=== PATIENT | female | born 1975 | race Caucasian/White ===

== ENCOUNTER 2018-06-17 16:00 | Emergency (ER) | payer BC ==
--- OUTSIDE RECORDS SUMMARY | 2018-06-17 16:02 | XMS REPORT | Clinical Summary ---
:1975 Author Organization [facility] Address [address] [place] [address] Care Team Providers Name Role Phone Asked, No Pcp Primary Care Provider Unavailable Allergies Active Allergy Reactions Severity Noted Date Comments Codeine Penicillins Current Medications Prescription Sig. Disp. Refills Start Date End Date Status promethazine Take 1 tablet 40 tablet 0 05/20/2017 06/19/2017 Discontinued (PHENERGAN) 25 MG (25 mg total) tabletIndications: by mouth every Lumbar 6 (six) hours radiculopathy, as needed for chronic, Chronic nausea or right-sided low vomiting for back pain with up to 40 days. right-sided sciatica HYDROcodone-acetami Take 1 tablet 40 tablet 0 06/17/2017 06/27/2017 nophen (NORCO) by mouth every 5-325 mg per 4 (four) hours tabletIndications: as needed for DDD (degenerative moderate pain disc disease), for up to 10 lumbar, Lumbar days. Max radiculopathy, Daily Amount: chronic 6 tablets meloxicam (MOBIC) Take 1 tablet 30 tablet 1 06/17/2017 08/16/2017 15 mg tablet (15 mg total) by mouth daily for 60 days. promethazine Take 1 tablet 40 tablet 0 06/20/2017 07/30/2017 (PHENERGAN) 25 MG (25 mg total) tabletIndications: by mouth every Lumbar 6 (six) hours radiculopathy, as needed for chronic, Chronic nausea or right-sided low vomiting for back pain with up to 40 days. right-sided sciatica Active Problems Problem Noted Date DDD (degenerative disc disease), lumbar 06/17/2017 Lumbar radiculopathy, chronic 05/20/2017 Chronic right-sided low back pain with right-sided sciatica 05/20/2017 Encounters Date Type Specialty Care Team Description 06/19/2017 Refill Orthopedic Surgery Anam Costa MD Lumbar radiculopathy , chronic; Chronic right-sided low back pain with right-sided sciatica 06/17/2017 Office Visit Orthopedic Surgery Anam Costa MD DDD ( degenerative disc disease), lumbar (Primary Dx); Lumbar radiculopathy, chronic; Chronic right-sided low back pain with right-sided sciatica after 06/16/2017 Family History Medical History Relation Name Comments No Known Problems Father Osteoporosis Mother Relation Name Status Comments Father Alive Mother Alive Social History Tobacco Use Types Packs/Day Years Used Date Never Smoker Smokeless Tobacco: Never Used Sex Assigned at Date Recorded Not on file Last Filed Vital Signs Not on file Plan of Treatment Health Maintenance Due Date Last Done Comments CERVICAL CANCER SCREENING 1995 INFLUENZA VACCINE 06/14/2018 Procedures Procedure Name Priority Date/Time Associated Diagnosis Comments XR LUMBAR SPINE 2 Routine 06/17/2017 9:49 AM Chronic right-sided Results for this OR 3 VW CDT low back pain with procedure are in right-sided sciatica the results Lumbar section. radiculopathy, chronic after 06/16/2017 Results XR Lumbar Spine 2 Or 3 Vw (06/17/2017 9:49 AM) Narrative Performed At Flexion and extension views are negative for instability. Mild narrowing [facility] of the lumbosacral junction. Performing Organization Address City/State/Zipcode Phone Number [facility] [address] [place] [address] after 06/16/2017 Insurance Payer Benefit Plan / Group Subscriber ID Type Phone Address BCBS BCBS OUT OF STATE xxxxxxxxxxxxxxx PPO [phone] [id number]
--- OUTSIDE RECORDS SUMMARY | 2018-06-17 16:02 | XMS REPORT | Continuity of Care Document ---
:1975 Author Organization Interface Problems Problem Status Onset Classification Date Comments Source Date Reported MIGRAINE Active Condition 05/15/2015 Medical HEADACHE 5 Group ROUTINE GENERAL Active Condition 05/15/2015 Medical MEDICAL 4 Group [email or web address] HEADACHE Inactive Condition 05/15/2015 Medical 4 Group ANXIETY STATE, Active Condition 05/15/2015 Medical UNSPECIFIED Group Medications Medication Details Route Status Patient Ordering Order Source Instructions Provider Date CLIMARA 0.05 one patch Active MH MG/24HR PTWK weekly. 015 Medical Group AMITRIPTYLINE one hs Active HCL 10 MG TABS 015 Medical Group ASCOMP-CODEINE one bid Active [id number] MG prn 014 Medical CAPS headaches. Group XANAX 0.25 MG 1 tablet Active MH TABS daily at 013 Medical bedtime as Group needed Allergies, Adverse Reactions, Alerts Substance Category Reaction Severity Reaction Status Date Comments Source type Reported PCN Drug PCN allergy Medical Group CODEINE Drug CODEINE allergy Medical Group Immunizations Immunization Date Given Site Status Last Updated Comments Source Results Order Name Results Value Reference Date Interpretation Comments Source Range Chemistry CHOLESTEROL 185 - 199 05/15/ MH mg/dl 2014 Medical Group Chemistry TRIGLYCERIDE 92 - 149 05/15/ mg/dl 2014 Medical Group Chemistry HDL 61 >=61 05/15/ mg/dl 2014 Medical Group Chemistry LDL 106 - 99 05/15/ MH mg/dl 2014 Medical Group Chemistry SODIUM 140 135 - 145 05/15/ MEQ/L 2014 Medical mmol/L Group Chemistry POTASSIUM 4.7 3.5 - 5.1 MEQ/L 2014 Medical mmol/L Group Chemistry CREATININE 0.7 0.5 - 1.4 05/15/ MH mg/dL 2014 Medical Group Chemistry BUN 14 7 - 22 05/15/ MH mg/dL 2014 Medical Group Chemistry BUN/CREAT 20 6 - 25 2014 Medical Group Chemistry ALBUMIN 4.2 3.5 - 5.0 g/dL 2014 Medical Group Chemistry CALCIUM 9.5 8.5 - 10.5 mg/dL 2014 Medical Group Chemistry SGPT (ALT) 23 U/L 0 - 65 2014 Medical Group Chemistry SGOT (AST) 15 U/L 0 - 37 2014 Medical Group Chemistry ALK PHOS 58 U/L 39 - 136 2014 Medical Group Chemistry TSH 2.040 0.360 - uIU/mL 3.740 2014 Medical Group Hematology HGB 12.8 12.0 - 16.0 g/dL 2014 Medical Group Hematology HCT 39.3 % 36.0 - 48.0 2014 Medical Group Hematology PLATELETS 291 133 - 450 K/CMM 2014 Medical /mm3 Group Chemistry CHOLESTEROL 235 - 199 mg/dl 2013 Medical Group Chemistry TRIGLYCERIDE 146 - 149 mg/dl 2013 Medical Group Chemistry HDL 64 >=61 mg/dl 2013 Medical Group Chemistry LDL 142 - 99 mg/dl 2013 Medical Group Chemistry SODIUM 139 135 - 145 MEQ/L 2013 Medical mmol/L Group Chemistry POTASSIUM 3.8 3.5 - 5.1 MEQ/L 2013 Medical mmol/L Group Chemistry CREATININE 0.7 0.5 - 1.4 mg/dL 2013 Medical Group Chemistry BUN 14 7 - 22 mg/dL 2013 Medical Group Chemistry BUN/CREAT 20 6 - 25 2013 Medical Group Chemistry ALBUMIN 4.4 3.5 - 5.0 g/dL 2013 Medical Group Chemistry CALCIUM 9.8 8.5 - 10.5 mg/dL 2013 Medical Group Chemistry SGPT (ALT) 26 U/L 0 - 65 2013 Medical Group Chemistry SGOT (AST) 17 U/L 0 - 37 2013 Medical Group Chemistry ALK PHOS 67 U/L 39 - 136 2013 Medical Group Chemistry TSH 2.440 0.360 - uIU/mL 3.740 2013 Medical Group Hematology HGB 13.0 12.0 - 16.0 g/dL 2013 Medical Group Hematology HCT 39.7 % 36.0 - 48.0 2013 Medical Group Hematology PLATELETS 233 133 - 450 K/CMM 2014 Medical /mm3 Group Vital Signs Vital Sign Value Date Comments Source Weight 148 05/15/2015 Medical Group Temperature Oral (F) 98.1 F 05/15/2015 Medical [facility] Heart Rate 70 05/15/2015 Medical Group Systolic (mm Hg) 111 05/15/2015 Medical Group Diastolic (mm Hg) 74 05/15/2015 Medical Group Height 63.5 11/23/2013 Medical Group Weight 145 11/23/2013 Medical [facility] Heart Rate 58 11/23/2013 Medical [facility] Temperature Oral (F) 97.4 F 11/23/2013 Medical Group Systolic (mm Hg) 160 11/23/2013 Medical Group Diastolic (mm Hg) 78 11/23/2013 Medical [facility] Encounters Location Location Encounter Encounter Reason Attending ADM DC Status Source Details Type Number For Provider Date Date Visit [facility] Office [id number] [facility] 05/15 05/15 [facility] Visit 0 Medical Medical MD Group Group [facility] Lab Report [id number] Bear 05/15 05/15 Jigar 0 Medical Medical MD Group Group [facility] [place] Procedures Procedure Code Date Perfomer Comments Source colonoscopy 11065 03/05/2008 Done Medical [facility] colonoscopy 35945 03/05/2008 Complete Medical [facility]
--- OUTSIDE RECORDS SUMMARY | 2018-06-17 16:03 | XMS REPORT | Continuity of Care Document ---
:1975 Author Organization [facility] Care Team Providers Name Role Phone MD Stefany, Bear Unavailable Unavailable Insurance Providers Payer name Policy type / Coverage Policy ID Covered constitution party ID Policy [place] type AETNA - NAP - CHOICE (POS II) AETNA - NAP - CHOICE (POS II) Encounters Encounter Performer Location Date Office Visit Bear Mccall MD [facility] May 15, 2015 Allergies, Adverse Reactions, Alerts Type Substance Reaction Status Drug allergy PCN Active Drug allergy CODEINE Active Problems Problem Effective Dates Problem Status ANXIETY STATE, UNSPECIFIED Active ROUTINE GENERAL MEDICAL [email or web address] [email or web address] Nov 23, 2013 Active HEADACHE Nov 23, 2013 Inactive MIGRAINE HEADACHE May 15, 2015 Active Procedures Date Description Comments Mar 05, 2008 colonoscopy Done Mar 05, 2008 colonoscopy Complete Nov 23, 2013 smoking status never smoker May 15, 2015 smoking status Never smoker Medications Medication Instructions Start Date Status XANAX 0.25 MG TABS 1 tablet daily at bedtime as April 11, 2013 Active needed ASCOMP-CODEINE 34-852-89-30 MG one bid prn headaches. Nov 23, 2013 Active CAPS CLIMARA 0.05 MG/24HR PTWK one patch weekly. May 15, 2015 Active AMITRIPTYLINE HCL 10 MG TABS one hs May 15, 2015 Active Vital Signs Date Description Test Result Nov 23, 2013 height E&M - 8302-2 HEIGHT 63.5 in Nov 23, 2013 weight E&M - 3141-9 WEIGHT 145 lb Nov 23, 2013 pulse rate E&M - 8867-4 PULSE RATE 58 /min Nov 23, 2013 temperature E&M TEMPERATURE 97.4 deg f Nov 23, 2013 blood pressure, systolic - 8480-6 BP SYSTOLIC 160 mm Hg Nov 23, 2013 blood pressure, diastolic - 8462-4 BP DIASTOLIC 78 mm Hg May 15, 2015 weight E&M - 3141-9 WEIGHT 148 lb May 15, 2015 temperature E&M TEMPERATURE 98.1 deg f May 15, 2015 pulse rate E&M - 8867-4 PULSE RATE 70 /min May 15, 2015 blood pressure, systolic - 8480-6 BP SYSTOLIC 111 mm Hg May 15, 2015 blood pressure, diastolic - 8462-4 BP DIASTOLIC 74 mm Hg Results Date Description Test Name Value Reference Interpretation Status Nov 23, hemoglobin, blood HGB 13.0 g/dL 12.0-16.0 2013Nov 23, hematocrit, blood HCT 39.7 % 36.0-48.0 2013Nov 23, platelet count PLATELETS 233 K/CMM [phone] /mm3 May 15, hemoglobin, blood HGB 12.8 g/dL 12.0-16.0 2014May 15, hematocrit, blood HCT 39.3 % 36.0-48.0 2014May 15, platelet count PLATELETS 291 K/CMM [phone] /mm3 Nov 23, cholesterol, serum CHOLESTEROL 235 mg/dl <=199 High 2013Nov 23, triglyceride, serum, TRIGLYCERIDE 146 mg/dl <=149 2013Nov 23, HDL cholesterol, HDL 64 mg/dl >=61 2013Nov 23, LDL cholesterol, LDL 142 mg/dl <=99 High 2013Nov 23, sodium, serum SODIUM 139 MEQ/L [phone] mmol/L Nov 23, potassium, serum POTASSIUM 3.8 MEQ/L 3.5-5.1 2013 mmol/L Nov 23, creatinine, serum CREATININE 0.7 mg/dL 0.5-1.4 2013Nov 23, urea nitrogen, blood BUN 14 mg/dL 7-22 2013Nov 23, urea BUN/CREAT 20 null 6-25 2013 nitrogen/creatinine ratio, serum Nov 23, albumin, serum ALBUMIN 4.4 g/dL 3.5-5.0 2013Nov 23, calcium, serum CALCIUM 9.8 mg/dL 8.5-10.5 2013Nov 23, alanine SGPT (ALT) 26 U/L 0-65 2014 aminotransferase (SGPT), serum Nov 23, aspartate SGOT (AST) 17 U/L 0-37 2013 aminotransferase (SGOT), serum Nov 23, alkaline ALK PHOS 67 U/L 39-136 2013 phosphatase, serum Nov 23, thyroid stimulating TSH 2.440 0.360-3.740 2013 hormone, serum uIU/mL May 15, cholesterol, serum CHOLESTEROL 185 mg/dl <=199 2014May 15, triglyceride, serum, TRIGLYCERIDE 92 mg/dl <=149 2014May 15, HDL cholesterol, HDL 61 mg/dl >=61 2014May 15, LDL cholesterol, LDL 106 mg/dl <=99 High 2014May 15, sodium, serum SODIUM 140 MEQ/L [phone] mmol/L May 15, potassium, serum POTASSIUM 4.7 MEQ/L 3.5-5.1 2014 mmol/L May 15, creatinine, serum CREATININE 0.7 mg/dL 0.5-1.4 2014May 15, urea nitrogen, blood BUN 14 mg/dL 7-22 2014May 15, urea BUN/CREAT 20 null 6-25 2014 nitrogen/creatinine ratio, serum May 15, albumin, serum ALBUMIN 4.2 g/dL 3.5-5.0 2014May 15, calcium, serum CALCIUM 9.5 mg/dL 8.5-10.5 2014May 15, alanine SGPT (ALT) 23 U/L 0-65 2014 aminotransferase (SGPT), serum May 15, aspartate SGOT (AST) 15 U/L 0-37 2014 aminotransferase (SGOT), serum May 15, alkaline ALK PHOS 58 U/L 39-136 2014 phosphatase, serum May 15, thyroid stimulating TSH 2.040 0.360-3.740 2015 hormone, serum uIU/mL
--- OUTSIDE RECORDS SUMMARY | 2018-06-17 16:03 | XMS REPORT | Continuity of Care Document ---
:1975 Author Organization [facility] Care Team Providers Name Role Phone MD Stefany, Bear Unavailable Unavailable Insurance Providers Payer name Policy type / Coverage Policy ID Covered republican ID Policy [place] type AETNA - NAP - CHOICE (POS II) AETNA - NAP - CHOICE (POS II) Encounters Encounter Performer Location Date Lab Report Bear Mccall MD [facility] May 15, 2015 Allergies, Adverse Reactions, Alerts [...] as April 11, 2013 Active needed ASCOMP-CODEINE [id number] MG one bid prn headaches. Nov 23, [...] 2013Nov 23, platelet count PLATELETS 233 K/CMM [phone] /mm3 May 15, hemoglobin, blood HGB 12.8 g/dL 12.0-16.0 2014May 15, hematocrit, blood HCT 39.3 % 36.0-48.0 2014May 15, platelet count PLATELETS 291 K/CMM [phone] /mm3 Nov 23, cholesterol, serum CHOLESTEROL 235 mg/dl <=199 High 2013Nov 23, triglyceride, serum, TRIGLYCERIDE 146 mg/dl <=149 2013Nov 23, HDL cholesterol, HDL 64 mg/dl >=61 2013Nov 23, LDL cholesterol, LDL 142 mg/dl <=99 High 2013Nov 23, sodium, serum SODIUM 139 MEQ/L [phone] mmol/L Nov 23, potassium, serum POTASSIUM 3.8 [...] 2014May 15, sodium, serum SODIUM 140 MEQ/L [phone] mmol/L May 15, potassium, serum POTASSIUM 4.7 [...]
[2018-06-17] MEDS ORDERED: ONDANSETRON 4 MG/2 ML VIAL ONE (16:44)
[2018-06-17] MEDS ORDERED: KETOROLAC 30 MG/ML INJ ONE (16:44)
[2018-06-17] MEDS ORDERED: NA CHLORIDE 0.9% 1,000 ML ONE (16:44)
[2018-06-17 17:08] LABS: Absolute Lymphocytes (CBC) 0.8 K/uL (0.7-4.9); Absolute Monocytes 0.2 K/uL (0.1-1.3); Absolute Neutrophil 3.7 K/uL (1.8-8.0); Basophils % 0.2 % (0-1.3); Eosinophils % 0.3 % (0-4.4); Hematocrit 37.1 % (36.0-45.0); Lymphocytes % 17.3 % (15.3-44.8); MCH 29.1 pg (27.0-35.0); MPV 9.7 fL (7.6-11.3); Monocytes % 5.1 % (3.3-12.3); RBC Red Blood Cell Count 4.32 M/uL (3.86-4.86)
--- NOTE | 2018-06-17 17:12 | RAD REPORT ---
EXAM DESCRIPTION: CT - [id number] - 06/17/2018 5:00 pm CLINICAL HISTORY: Trauma, head and neck injury. PAIN COMPARISON: MRI BRAIN WITHOUT CONTRAST dated 12/07/2013 TECHNIQUE: Axial 5 mm thick images of the head were obtained. Axial 2 mm thick images of the cervical spine were obtained with sagittal and coronal reconstruction images generated and reviewed. All CT scans are performed using dose optimization technique as appropriate and may include automated exposure control or mA/KV adjustment according to patient size. FINDINGS: CT HEAD WITHOUT CONTRAST: No acute hemorrhage, hydrocephalus or extra-axial collection is identified.No areas of brain edema or midline shift. The paranasal sinuses and mastoids are clear.The calvarium is intact. CT CERVICAL SPINE WITHOUT CONTRAST: No fracture or subluxation.3 mm anterolisthesis is noted of C4 on 5.No prevertebral soft tissues swel ling is identified. IMPRESSION: No acute intracranial abnormality seen. 3 mm anterolisthesis of C4 on 5 is noted. No fracture is visualized. The findings may be related liga mentous injury, age undetermined. Followup MR imaging of the cervical spine may be useful for further assessment.
[2018-06-17 17:29] LABS: Albumin 3.7 g/dL (3.4-5.0); Bilirubin Total 0.4 mg/dL (0.2-1.0); Potassium 3.9 mmol/L (3.5-5.1); Protein, Total 7.3 g/dL (6.4-8.2)
[2018-06-17] MEDS ORDERED: PROMETHAZINE 25 MG/ML VIAL ONE (17:33)
--- NOTE | 2018-06-17 17:38 | EDPHYS ---
Physician Documentation [facility] Name: Jose Armenta Age: 42 yrs Sex: Female : 1975 Arrival Date: 06/17/2018 Time: 16:03 Bed 16 Private MD: Citlali Myles C ED Physician Jeremiah Marsh HPI: 06/17 16:37 This 42 yrs old Female presents to ER via Ambulatory with complaints of Fall cesar Injury, Vomiting. 16:37 Details of fall: The patient fell from an upright position, while walking. Onset: The cesar symptoms/episode began/occurred last night. Associated injuries: The patient sustained injury to the head. Severity of symptoms: At their worst the symptoms were mild, moderate, in the emergency department the symptoms are unchanged. The patient has not experienced similar symptoms in the past. 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 - Social history:: Smoking status: Patient/guardian denies using tobacco. - Ebola Screening: : Patient denies travel to an Ebola-affected area in the 21 days before illness onset. - Family history:: not pertinent. ROS: 16:37 Constitutional: Negative for fever, chills, and weight loss, Eyes: Negative for injury, cesar pain, redness, and discharge, ENT: Negative for injury, pain, and discharge, Neck: Negative for injury, pain, and swelling, Cardiovascular: Negative for chest pain, palpitations, and edema, Respiratory: Negative for shortness of breath, cough, wheezing, and pleuritic chest pain, Abdomen/GI: Negative for abdominal pain, nausea, vomiting, diarrhea, and constipation, Back: Negative for injury and pain, : Negative for injury, bleeding, discharge, and swelling, MS/Extremity: Negative for injury and deformity, Skin: Negative for injury, rash, and discoloration, Psych: Negative for depression, anxiety, suicide ideation, homicidal ideation, and hallucinations, Allergy/Immunology: Negative for hives, rash, and allergies, Endocrine: Negative for neck swelling, polydipsia, polyuria, polyphagia, and marked weight changes, Hematologic/Lymphatic: Negative for swollen nodes, abnormal bleeding, and unusual bruising. 16:37 Neuro: Positive for headache. Exam: 16:37 Constitutional: This is a well developed, well nourished patient who is awake, alert, cesar and in no acute distress. Eyes: Pupils equal round and reactive to light, extra-ocular motions intact. Lids and lashes normal. Conjunctiva and sclera are non-icteric and not injected. Cornea within normal limits. Periorbital areas with no swelling, redness, or edema. ENT: Nares patent. No nasal discharge, no septal abnormalities noted. Tympanic membranes are normal and external auditory canals are clear. Oropharynx with no redness, swelling, or masses, exudates, or evidence of obstruction, uvula midline. Mucous membranes moist. Neck: Trachea midline, no thyromegaly or masses palpated, and no cervical lymphadenopathy. Supple, full range of motion without nuchal rigidity, or vertebral point tenderness. No Meningismus. Chest/axilla: Normal chest wall appearance and motion. Nontender with no deformity. No lesions are appreciated. Cardiovascular: Regular rate and rhythm with a normal S1 and S2. No gallops, murmurs, or rubs. Normal PMI, no JVD. No pulse deficits. Respiratory: Lungs have equal breath sounds bilaterally, clear to auscultation and percussion. No rales, rhonchi or wheezes noted. No increased work of breathing, no retractions or nasal flaring. Abdomen/GI: Soft, non-tender, with normal bowel sounds. No distension or tympany. No guarding or rebound. No evidence of tenderness throughout. Back: No spinal tenderness. No costovertebral tenderness. Full range of motion. Female : Normal external genitalia. Skin: Warm, dry with normal turgor. Normal color with no rashes, no lesions, and no evidence of cellulitis. MS/ Extremity: Pulses equal, no cyanosis. Neurovascular intact. Full, normal range of motion. Neuro: Awake and alert, GCS 15, oriented to person, place, time, and situation. Cranial nerves II-XII grossly intact. Motor strength 5/5 in all extremities. Sensory grossly intact. Cerebellar exam normal. Normal gait. Psych: Awake, alert, with orientation to person, place and time. Behavior, mood, and affect are within normal limits. 16:37 Head/face: Noted is contusion, that is superficial, of the forehead and left mosque, hematoma, that is mild, of the forehead and left mosque. 17:49 Neck: External neck: is normal, no acute changes, C-spine: appears grossly normal, no cesar acute changes, Thyroid: appears normal, no acute changes, Trachea: is midline with no obvious abnormalities, no acute changes, ROM/movement: is normal, no acute changes, pain, is not appreciated, limited range of motion, is not appreciated, Meningeal signs: are not present, Kernig's sign is negative, Brudzinski's sign is negative, nuchal rigidity, is not appreciated. Vital Signs: 16:04 BP 121 / 80; Pulse 86; Resp 18; Temp 97.7(TE); Pulse Ox 99% on R/A; Weight 63.5 kg (R); aj1 Height 5 ft. 2 in. (157.48 cm) (R); Pain 8/10; 16:26 BP 123 / 77; Pulse 89; Resp 18; Pulse Ox 100% on R/A; Pain 8/10; mg2 16:04 Body Mass Index 25.61 (63.50 kg, 157.48 cm) aj1 [place] Coma Score: 16:04 Eye Response: spontaneous(4). Verbal Response: oriented(5). Motor Response: obeys aj1 commands(6). Total: 15. Trauma Score (Adult): 16:04 Eye Response: spontaneous(1); Verbal Response: oriented(1); Motor Response: obeys aj1 commands(2); Systolic BP: > 89 mm Hg(4); Respiratory Rate: 10 to 29 per min(4); Deedee Score: 15; Trauma Score: 12 MDM: 16:17 Patient medically screened. [facility] 16:37 Data reviewed: vital signs, nurses notes, lab test result(s), radiologic studies, CT cesar scan. 06/17 16:37 Order name: CBC with Diff; Complete Time: 17:37 [facility] 06/17 16:37 Order name: Comprehensive Metabolic Panel; Complete Time: 17:37 [facility] 06/17 16:37 Order name: Urine Culture [facility] 06/17 16:37 Order name: CT Head C Spine; Complete Time: 17:37 [facility] 06/17 17:51 Order name: Urine Dipstick--Ancillary (enter results) [facility] 06/17 17:51 Order name: Urine --Ancillary (enter results) [facility] 06/17 16:37 Order name: Urine Dipstick-Ancillary (obtain specimen); Complete Time: 18:03 [facility] Administered Medications: 16:49 Drug: NS 0.9% 1000 ml Route: IV; Rate: 1 bolus; Site: left antecubital; mg2 18:19 Follow up: Response: No adverse reaction; IV Status: Completed infusion [facility] 16:49 Drug: TORadol 30 mg Route: IVP; Site: left antecubital; mg2 18:19 Follow up: Response: No adverse reaction; Marked relief of symptoms mg2 17:28 Not Given (Duplicate Order): Zofran 4 mg IVP once; over 2 minutes [facility] 17:32 Drug: Phenergan 12.5 mg Route: IVP; Site: left antecubital; mg2 18:19 Follow up: Response: No adverse reaction; Marked relief of symptoms mg2 Disposition: 06/17/18 17:38 Discharged to Home. Impression: Vomiting, Fall due to bumping against object, Migraine. - Condition is Stable. - Discharge Instructions: Head Injury, Adult, Migraine Headache, Nausea and Vomiting, Adult, Nausea and Vomiting, Adult, [id number], Head Injury, Adult, [id number]. - Prescriptions for Fioricet with Codeine 50- 325-40-30 mg Oral capsule - take 1 capsule by ORAL route every 4 hours as needed not to exceed 6 capsules per 24hrs; 20 capsule. promethazine 25 mg Oral Tablet - take 1 tablet by ORAL route every 6 hours As needed; 20 tablet. - Medication Reconciliation Form, Thank You Letter, Antibiotic Education, Prescription Opioid Use form. - Follow up: Citlali Myles; When: 2 - 3 days; Reason: Recheck today's complaints, Continuance of care, Re-evaluation by your physician. Follow up: Pranay Birmingham; When: 2 - 3 days; Reason: Recheck today's complaints, Re-evaluation by your physician. - Problem is new. - Symptoms have improved. 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 Impression: Vomiting; Fall due to bumping mg2 against object; Migraine. Condition is Stable. Discharge Instructions: Head Injury, Adult, Migraine Headache, Nausea and Vomiting, Adult, Nausea and Vomiting, Adult, [id number], Head Injury, Adult, [id number]. Prescriptions for Fioricet with Codeine 79-268-58-30 mg Oral capsule - take 1 capsule by ORAL route every 4 hours as needed not to exceed 6 capsules per 24hrs; 20 capsule, Zofran 4 mg Oral Tablet - take 1 tablet by ORAL route every 12 hours As needed; 15 tablet. and Forms are Medication Reconciliation Form, Thank You Letter, Antibiotic Education, Prescription Opioid Use. Follow up: Citlali Myles; When: 2 - 3 days; Reason: Recheck today's complaints, Continuance of care, Re-evaluation by your physician. Follow up: Pranay Birmingham; When: 2 - 3 days; Reason: Recheck today's complaints, Re-evaluation by your physician. Problem is new. Symptoms have improved. cesar
--- NOTE | 2018-06-17 17:38 | ER ---
Nurse's Notes [facility] Name: Jose Armenta Age: 42 yrs Sex: Female : 1975 Arrival Date: 06/17/2018 Time: 16:03 Bed 16 Private MD: Citlali Myles C Diagnosis: Vomiting;Fall due to bumping against object;Migraine Presentation: 06/17 16:04 Presenting complaint: Patient states: She had a migraine since Tuesday and then last aj night in the middle of the night she had gotten up and suddenly felt nauseated and passed out, and woke up on the ground outside. She has scrapes on her left arm and bruising on the left hip and left sided facial pain from when she passed out. States that she started vomiting this morning and has not been able to keep anything down. Reports dizziness. Ambulated to triage with steady gait, equal plasterer spot bilaterally, equal smile. Care prior to arrival: None. Mechanism of Injury: Fall from standing position. Trauma event details: Injury occurred in the [facility]. 16:04 Acuity: SAFIA 3 aj1 16:04 Method Of Arrival: Ambulatory aj1 16:11 Transition of care: patient was not received from another setting of care. Onset of aj1 symptoms was June 16, 2018. Risk Assessment: Do you want to hurt yourself or someone else? Patient reports no desire to harm self or others. Initial Sepsis Screen: Does the patient meet any 2 criteria? No. Patient's initial sepsis screen is negative. Does the patient have a suspected source of infection? No. Patient's initial sepsis screen is negative. 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: 16:14 LMP N/A - Hysterectomy aj1 Trauma Activation: Physician: ED Physician; Name: dr marsh; Notified At: ; Arrived At: Physician: General Surgeon; Name: ; Notified At: ; Arrived At: Physician: Radiology; Name: ; Notified At: ; Arrived At: Physician: Respiratory; Name: ; Notified At: ; Arrived At: Physician: Lab; Name: ; Notified At: ; Arrived At: Historical: - Allergies: 16:14 No Known Allergies; aj1 - Home Meds: 16:14 topiramate 25 mg oral CSpX 1 cap once daily [Active]; duloxetine 60 mg oral cpDR 1 cap aj1 once daily [Active]; alprazolam 0.25 mg Oral TbDL 1 tab twice daily [Active]; estradiol patch [Active]; - PMHx: 16:14 Migraines; hernandez parkinson white syndrome; aj1 - PSHx: 16:14 back surgery; Hysterectomy; Cholecystectomy; aj1 - Immunization history: Last tetanus immunization: unknown. - Social history:: Smoking status: Patient/guardian denies using tobacco. - Ebola Screening: : Patient denies travel to an Ebola-affected area in the 21 days before illness onset. - Family history:: not pertinent. Screenin:04 Abuse screen: Denies threats or abuse. Denies injuries from another. Tuberculosis aj1 screening: No symptoms or risk factors identified. 16:27 Nutritional screening: No deficits noted. Fall Risk Fall in past 12 months (25 points). mg2 Primary Survey: 16:24 Breathing/Chest: Respiratory pattern: regular, Respiratory effort: spontaneous, mg2 unlabored, Breath sounds: clear, in right upper lobe, left upper lobe, left posterior upper lobe, right posterior upper lobe, left posterior lower lobe, right posterior middle lobe and right posterior lower lobe Chest inspection: symmetrical rise and fall of the chest. Circulation: Skin color: pink. Disability Alert. 18:17 Reassessment Breathing/Chest Respiratory pattern Regular Respiratory effort Spontaneous mg2 Unlabored. Secondary Survey: 16:24 HEENT: Head Other bruise in the scalp. Gastrointestinal: No deficits noted. : No mg2 deficits noted. Musculoskeletal: Circulation, motion, and sensation intact. Injury Description: Bruise sustained to left upper thigh and forehead abrasions in the left arm. Assessment: 16:04 General: Appears in no apparent distress. uncomfortable, Behavior is calm, cooperative, aj1 appropriate for age. Pain: Complains of pain in top of head, forehead, left cheek, left congregation and left jaw Pain currently is 8 out of 10 on a pain scale. Neuro: Level of Consciousness is awake, alert, obeys commands, Jewel Oliving Machine Operator are equal bilaterally Moves all extremities. Full function Gait is steady, Speech is normal, Facial symmetry appears normal. Cardiovascular: Patient's skin is warm and dry. Respiratory: Airway is patent Respiratory effort is even, unlabored, Respiratory pattern is regular, symmetrical. 17:50 Reassessment: Patient appears in no apparent distress at this time. Patient and/or mg2 family updated on plan of care and expected duration. Pain level reassessed. Patient is alert, oriented x 3, equal unlabored respirations, skin warm/dry/pink. patient is still with iv fluid. Vital Signs: 16:04 BP 121 / 80; Pulse 86; Resp 18; Temp 97.7(TE); Pulse Ox 99% on R/A; Weight 63.5 kg (R); aj1 Height 5 ft. 2 in. (157.48 cm) (R); Pain 8/10; 16:26 BP 123 / 77; Pulse 89; Resp 18; Pulse Ox 100% on R/A; Pain 8/10; mg2 16:04 Body Mass Index 25.61 (63.50 kg, 157.48 cm) aj1 [place] Coma Score: 16:04 Eye Response: spontaneous(4). Verbal Response: oriented(5). Motor Response: obeys aj1 commands(6). Total: 15. Trauma Score (Adult): 16:04 Eye Response: spontaneous(1); Verbal Response: oriented(1); Motor Response: obeys aj1 commands(2); Systolic BP: > 89 mm Hg(4); Respiratory Rate: 10 to 29 per min(4); [place] Score: 15; Trauma Score: 12 ED Course: 16:03 Patient arrived in ED. rg4 16:03 Citlali Myles MD is Private Physician. rg4 16:04 Patient has correct armband on for positive identification. aj1 16:04 Patient maintains SpO2 saturation greater than 95% on room air. aj1 16:09 Triage completed. aj1 16:14 Arm band placed on Patient placed in an exam room. aj1 16:16 Jeremiah Marsh MD is Attending Physician. [facility] 16:17 Abelino Muniz RN is Primary Nurse. mg2 17:00 CT Head C Spine In Process Unspecified. EDMS 17:05 Inserted saline lock: 20 gauge in left antecubital area, using aseptic technique. Blood mg2 collected. 17:37 Citlali Myles MD is Referral Physician. cesar 17:37 Pranay Birmingham MD is Referral Physician. [facility] 18:17 No provider procedures requiring assistance completed. IV discontinued, intact, mg2 bleeding controlled, No redness/swelling at site. Pressure dressing applied. 18:18 Thermoregulation: warm blanket given to patient. mg2 Administered Medications: 16:49 Drug: NS 0.9% 1000 ml Route: IV; Rate: 1 bolus; Site: left antecubital; mg2 18:19 Follow up: Response: No adverse reaction; IV Status: Completed infusion mg2 16:49 Drug: TORadol 30 mg Route: IVP; Site: left antecubital; mg2 18:19 Follow up: Response: No adverse reaction; Marked relief of symptoms mg2 17:28 Not Given (Duplicate Order): Zofran 4 mg IVP once; over 2 minutes ceasr 17:32 Drug: Phenergan 12.5 mg Route: IVP; Site: left antecubital; mg2 18:19 Follow up: Response: No adverse reaction; Marked relief of symptoms mg2 Intake: 18:19 PO: 0ml; IV: 1000ml (IV Fluid); Total: 1000ml. mg2 Outcome: 17:38 Discharge ordered by . cesar 18:18 Discharged to home ambulatory, with family. mg2 18:18 Condition: stable 18:18 Patient's length of stay was not longer than 2 hours. 18:18 Discharge instructions given to patient, family, Instructed on discharge instructions, mg2 follow up and referral plans. medication usage, Demonstrated understanding of instructions, follow-up care, medications, Prescriptions given X 2. 18:20 Patient left the ED. mg2 Signatures: Dispatcher [employer] EDGertrude Pelaez RN RN [email or web address] Jeremiah Marsh MD MD cha Garcia, Rubi rg4 Abelino Muniz RN RN mg2
[2018-06-17 18:00] LABS: Urine Blood NEGATIVE (NEG); Urine Glucose NEGATIVE (NEG); Urine Protein TRACE (NEG); Urine pH 7.5 (5.0-7.0)
[2018-06-17 18:33] VITALS: TEMP 97.7
[2018-06-17 18:34] VITALS: BP 123/77; O2SAT 100
== END 2018-06-17 18:20 | disposition home or self-care (01) ==
LOC: ER 16:00
DX: G43.909 Migraine, unspecified, not intractable, without status migrainosus (principal); I45.6 Pre-excitation syndrome; W18.00XA Striking against unspecified object with subsequent fall, initial encounter; Y93.01 Activity, walking, marching and hiking; Y92.9 Unspecified place or not applicable
CPT/HCPCS: 36415; 70450; 72125; 80053; 81003; 81025; 85025; 87086; 87088; 96361; 96374; 96375; 99284; J2405; J2550; J7030

== ENCOUNTER 2018-07-19 11:31 | Observation (INO) | payer BC ==
--- OUTSIDE RECORDS SUMMARY | 2018-07-19 11:33 | XMS REPORT | Continuity of Care Document ---
:1975 Author Organization [facility] Care Team Providers Name Role Phone MD Stefany, Bear Unavailable Unavailable Insurance Providers Payer name Policy type / Coverage Policy ID Covered alliance party ID Policy Maza type AETNA - NAP - CHOICE (POS II) AETNA - NAP - CHOICE (POS II) Encounters Encounter Performer Location Date Lab Report Bear Mccall MD [facility] May 15, 2015 Allergies, Adverse Reactions, Alerts [...] as April 11, 2013 Active needed ASCOMP-CODEINE 39-283-73-30 MG one bid prn headaches. Nov 23, [...] 2013Nov 23, platelet count PLATELETS 233 K/CMM [phone] /mm3 May 15, hemoglobin, blood HGB 12.8 g/dL 12.0-16.0 2014May 15, hematocrit, blood HCT 39.3 % 36.0-48.0 2014May 15, platelet count PLATELETS 291 K/CMM [phone] /mm3 Nov 23, cholesterol, serum CHOLESTEROL 235 mg/dl <=199 High 2013Nov 23, triglyceride, serum, TRIGLYCERIDE 146 mg/dl <=149 2013Nov 23, HDL cholesterol, HDL 64 mg/dl >=61 2013Nov 23, LDL cholesterol, LDL 142 mg/dl <=99 High 2013Nov 23, sodium, serum SODIUM 139 MEQ/L [phone] mmol/L Nov 23, potassium, serum POTASSIUM 3.8 [...] 2014May 15, sodium, serum SODIUM 140 MEQ/L [phone] mmol/L May 15, potassium, serum POTASSIUM 4.7 [...]
--- OUTSIDE RECORDS SUMMARY | 2018-07-19 11:33 | XMS REPORT | Continuity of Care Document ---
:1975 Author Organization [facility] Care Team Providers Name Role Phone MD Stefany, Bear Unavailable Unavailable Insurance Providers Payer name Policy type / Coverage Policy ID Covered libertarian ID Policy Maza type AETNA - NAP - CHOICE (POS II) AETNA - NAP - CHOICE (POS II) Encounters Encounter Performer Location Date Office Visit Bear Mccall MD [facility] May 15, 2015 Allergies, Adverse Reactions, [...] as April 11, 2013 Active needed ASCOMP-CODEINE 31-291-45-30 MG one bid prn headaches. Nov 23, [...] 2013Nov 23, platelet count PLATELETS 233 K/CMM [phone] /mm3 May 15, hemoglobin, blood HGB 12.8 g/dL 12.0-16.0 2014May 15, hematocrit, blood HCT 39.3 % 36.0-48.0 2014May 15, platelet count PLATELETS 291 K/CMM [phone] /mm3 Nov 23, cholesterol, serum CHOLESTEROL 235 mg/dl <=199 High 2013Nov 23, triglyceride, serum, TRIGLYCERIDE 146 mg/dl <=149 2013Nov 23, HDL cholesterol, HDL 64 mg/dl >=61 2013Nov 23, LDL cholesterol, LDL 142 mg/dl <=99 High 2013Nov 23, sodium, serum SODIUM 139 MEQ/L [phone] mmol/L Nov 23, potassium, serum POTASSIUM 3.8 [...] 2014May 15, sodium, serum SODIUM 140 MEQ/L [phone] mmol/L May 15, potassium, serum POTASSIUM 4.7 [...]
--- OUTSIDE RECORDS SUMMARY | 2018-07-19 11:33 | XMS REPORT | Clinical Summary ---
:1975 Author Organization [facility] Address [address] [place] [address] Care Team Providers Name Role Phone Asked, No Pcp Primary Care Provider Unavailable Allergies Active Allergy Reactions Severity Noted Date Comments Codeine Penicillins Current Medications Prescription Sig. Disp. Refills Start Date End Date Status meloxicam (MOBIC) 15 Take 1 tablet 30 tablet 1 06/17/2017 08/16/2017 mg tablet (15 mg total) by mouth daily for 60 days. promethazine Take 1 tablet 40 tablet 0 06/20/2017 07/30/2017 (PHENERGAN) 25 MG (25 mg total) by tabletIndications: mouth every 6 Lumbar radiculopathy, (six) hours as chronic, Chronic needed for right-sided low back nausea or pain with right-sided vomiting for up sciatica to 40 days. Active Problems Problem Noted Date DDD (degenerative disc disease), lumbar 06/17/2017 Lumbar radiculopathy, chronic 05/20/2017 Chronic right-sided low back pain with right-sided sciatica 05/20/2017 Family History Medical History Relation Name Comments No Known Problems Father Osteoporosis Mother Relation Name Status Comments Father Alive Mother Alive Social History Tobacco Use Types Packs/Day Years Used Date Never Smoker Smokeless Tobacco: Never Used Sex Assigned at Date Recorded Not on file Last Filed Vital Signs Not on file Plan of Treatment Date Type Specialty Care Team Description 09/26/2018 Office Visit Neurology Zara Nava MD [address] [facility] [address] [place] [address] Health Maintenance Due Date Last Done Comments CERVICAL CANCER SCREENING 1995 INFLUENZA VACCINE 06/14/2018 Results Not on fileafter 07/18/2017 Insurance Payer Benefit Plan / Group Subscriber ID Type Phone Address BCBS BCBS OUT OF STATE xxxxxxxxxxxxxxx PPO y [phone] [id number]
--- OUTSIDE RECORDS SUMMARY | 2018-07-19 11:33 | XMS REPORT | Continuity of Care Document ---
[...] [facility] [employer] ASCOMP-CODEINE one bid Active [id number] MG prn 014 [facility] headaches. Group [...] Type Number For Provider Date Date Visit [facility] Office [id number] [facility] 05/15 05/15 [facility] Visit 0 [facility] Lab Report [id number] Bear 05/15 05/15 Jigar 0 [facility] Procedures Procedure Code Date Perfomer Comments Source colonoscopy [id number] 03/05/2008 Done [facility] colonoscopy [id number] 03/05/2008 Complete [facility]
[2018-07-19 12:18] LABS: Absolute Lymphocytes (CBC) 1.2 K/uL (0.7-4.9); Absolute Monocytes 0.6 K/uL (0.1-1.3); Absolute Neutrophil 4.3 K/uL (1.8-8.0); Basophils % 0.4 % (0-1.3); Eosinophils % 0.3 % (0-4.4); Hematocrit 36.9 % (36.0-45.0); Lymphocytes % 19.1 % (15.3-44.8); MCH 29.6 pg (27.0-35.0); MPV 9.2 fL (7.6-11.3); Monocytes % 9.5 % (3.3-12.3); RBC Red Blood Cell Count 4.29 M/uL (3.86-4.86)
[2018-07-19] MEDS ORDERED: PROMETHAZINE 25 MG/ML VIAL ONE ×2 (12:21→15:17)
[2018-07-19] MEDS ORDERED: CEFTRIAXONE/SWI 1gm 1 GM/10 ML SYR ONE (12:22)
[2018-07-19] MEDS ORDERED: NA CHLORIDE 0.9% 1,000 ML ONE ×2 (12:22→14:22)
[2018-07-19] MEDS ORDERED: KETOROLAC 30 MG/ML INJ ONE (12:22)
[2018-07-19] MEDS ORDERED: MORPHINE 4 MG/ML SYR ONE ×2 (12:22→15:18)
--- NOTE | 2018-07-19 12:36 | RAD REPORT ---
EXAM DESCRIPTION: CT - Stone Protocol - 07/19/2018 12:25 pm CLINICAL HISTORY: Flank pain. FLANK PAIN COMPARISON: No comparisons TECHNIQUE: Axial images were obtained without oral or IV contrast. Lack of contrast limits solid org an and vascular assessment. The [id number] spans the entirety of the system partially obscuring uppermost abdomen and lung bases. Coronal reformatted images were obtained and reviewed. All CT scans are performed using dose optimization technique as appropriate and may include automated exposure control or mA/KV adjustment according to patient size. FINDINGS: The lower lung francisco are clear. Imaged portions of the liver and spleen show no suspicious findings on non-contrast imaging.Cholecyst ectomy clips. The pancreas and adrenal glands are normal. No pathologic lymphadenopathy in the abdome n or pelvis. 6 mm stone (1600 HU) is present proximal left ureter to the left of L3-4 resulting mild to moderate h ydronephrosis on the left. Multiple additional stones are present in the left kidney, the largest sup eriorly measuring 4 mm. Tiny punctate calculus is seen superior right kidney. No bowel obstruction, free air, free fluid or abscess. Normal appendix noted. Postsurgical hardware is present L5-S1. IMPRESSION: 6 mm stone proximal left ureter resulting in mild to moderate left hydronephrosis. Additional bilateral nephrolithiasis, greater on the left, as detailed.
[2018-07-19 12:38] LABS: Albumin 3.9 g/dL (3.4-5.0); Bilirubin Direct 0.1 mg/dL (0-0.2); Bilirubin Total 0.4 mg/dL (0.2-1.0); Potassium 3.9 mmol/L (3.5-5.1); Protein, Total 7.6 g/dL (6.4-8.2)
[2018-07-19 13:25] LABS: Urine Bacteria <20 /HPF (<20); Urine Culture Reflex Order NOT NEEDED; Urine Mucus 1+ /HPF (NONE SEEN)
[2018-07-19 13:26] LABS: Urine Blood NEGATIVE (NEG); Urine Glucose NEGATIVE (NEG); Urine Protein TRACE (NEG); Urine Specific Gravity >1.030 (1.005-1.030)
--- NOTE | 2018-07-19 13:33 | EDPHYS ---
Physician Documentation [facility] Name: Jose Armenta Age: 42 yrs Sex: Female : 1975 Arrival Date: 07/19/2018 Time: 11:34 Bed 15 Private MD: Citlali Myles C ED Physician Jeremiah Marsh HPI: 07/19 12:05 This 42 yrs old Female presents to ER via Ambulatory with complaints of cesar Possible Kidney Stone. 12:05 The patient presents with abdominal pain in the left upper quadrant, in the left lower cesar quadrant. Onset: The symptoms/episode began/occurred 2 day(s) ago. The patient complains of pain in the left low back and left mid back. The pain does not radiate. Onset: The symptoms/episode began/occurred 2 day(s) ago. Modifying factors: The symptoms are alleviated by nothing. the symptoms are aggravated by nothing. Associated signs and symptoms: The patient has no apparent associated signs or symptoms. 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 - Social history:: Smoking status: Patient/guardian denies using tobacco. - Ebola Screening: : No symptoms or risks identified at this time. - Family history:: not pertinent. ROS: 12:05 Constitutional: Negative for fever, chills, and weight loss, Eyes: Negative for injury, cesar pain, redness, and discharge, ENT: Negative for injury, pain, and discharge, Neck: Negative for injury, pain, and swelling, Cardiovascular: Negative for chest pain, palpitations, and edema, Respiratory: Negative for shortness of breath, cough, wheezing, and pleuritic chest pain, : Negative for injury, bleeding, discharge, and swelling, MS/Extremity: Negative for injury and deformity, Skin: Negative for injury, rash, and discoloration, Neuro: Negative for headache, weakness, numbness, tingling, and seizure, Psych: Negative for depression, anxiety, suicide ideation, homicidal ideation, and hallucinations, Allergy/Immunology: Negative for hives, rash, and allergies, Endocrine: Negative for neck swelling, polydipsia, polyuria, polyphagia, and marked weight changes, Hematologic/Lymphatic: Negative for swollen nodes, abnormal bleeding, and unusual bruising. 12:05 Abdomen/GI: Positive for abdominal pain, of the posterior aspect of left lateral abdomen, left upper quadrant and left lower quadrant. Exam: 12:05 Constitutional: This is a well developed, well nourished patient who is awake, alert, cesar and in no acute distress. Head/Face: Normocephalic, atraumatic. Eyes: Pupils equal round and reactive to light, extra-ocular motions intact. Lids and lashes normal. Conjunctiva and sclera are non-icteric and not injected. Cornea within normal limits. Periorbital areas with no swelling, redness, or edema. ENT: Nares patent. No nasal discharge, no septal abnormalities noted. Tympanic membranes are normal and external auditory canals are clear. Oropharynx with no redness, swelling, or masses, exudates, or evidence of obstruction, uvula midline. Mucous membranes moist. Neck: Trachea midline, no thyromegaly or masses palpated, and no cervical lymphadenopathy. Supple, full range of motion without nuchal rigidity, or vertebral point tenderness. No Meningismus. Chest/axilla: Normal chest wall appearance and motion. Nontender with no deformity. No lesions are appreciated. Cardiovascular: Regular rate and rhythm with a normal S1 and S2. No gallops, murmurs, or rubs. Normal PMI, no JVD. No pulse deficits. Respiratory: Lungs have equal breath sounds bilaterally, clear to auscultation and percussion. No rales, rhonchi or wheezes noted. No increased work of breathing, no retractions or nasal flaring. Female : Normal external genitalia. Skin: Warm, dry with normal turgor. Normal color with no rashes, no lesions, and no evidence of cellulitis. MS/ Extremity: Pulses equal, no cyanosis. Neurovascular intact. Full, normal range of motion. Neuro: Awake and alert, GCS 15, oriented to person, place, time, and situation. Cranial nerves II-XII grossly intact. Motor strength 5/5 in all extremities. Sensory grossly intact. Cerebellar exam normal. Normal gait. Psych: Awake, alert, with orientation to person, place and time. Behavior, mood, and affect are within normal limits. 12:05 Abdomen/GI: Inspection: abdomen appears normal, Bowel sounds: normal, Palpation: mild abdominal tenderness, in the posterior aspect of left lateral abdomen, left upper quadrant and left lower quadrant. Vital Signs: 11:38 BP 108 / 72; Pulse 94; Resp 16 S; Temp 97.2(TE); Pulse Ox 97% on R/A; Weight 61.23 kg aa5 (R); Height 5 ft. 2 in. (157.48 cm) (R); Pain 10/10; 13:09 BP 125 / 68; Pulse 81; Resp 16; Pulse Ox 100% on R/A; aj 15:17 BP 117 / 73; Pulse 76; Resp 16; Pulse Ox 99% on R/A; aj 11:38 Body Mass Index 24.69 (61.23 kg, 157.48 cm) aa5 MDM: 11:42 Patient medically screened. [facility] 12:08 Data reviewed: vital signs, nurses notes, lab test result(s), radiologic studies, CT cesar scan. 07/19 11:46 Order name: Amylase, Serum; Complete Time: 13:27 [facility] 07/19 11:46 Order name: Basic Metabolic Panel; Complete Time: 13:27 [facility] 07/19 11:46 Order name: CBC with Diff; Complete Time: 12:31 [facility] 07/19 11:46 Order name: Creatinine for Radiology; Complete Time: 13:27 [facility] 07/19 11:46 Order name: Hepatic Function; Complete Time: 13:27 [facility] 07/19 11:46 Order name: Lipase; Complete Time: 13:27 [facility] 07/19 11:46 Order name: Urine Microscopic Only; Complete Time: 13:27 [facility] 07/19 11:46 Order name: Urine Culture [facility] 07/19 13:12 Order name: Urine Dipstick--Ancillary (enter results); Complete Time: 13:27 07/19 13:12 Order name: Urine --Ancillary (enter results); Complete Time: 13:27 07/19 13:33 Order name: Ckmb [facility] 07/19 13:33 Order name: CPK [facility] 07/19 13:33 Order name: Magnesium [facility] 07/19 13:33 Order name: NT PRO-BNP [facility] 07/19 11:46 Order name: CT Stone Protocol; Complete Time: 13:27 [facility] 07/19 13:28 Order name: Abdomen 1 View (KUB) XRAY [facility] 07/19 13:33 Order name: PT-INR [facility] 07/19 13:33 Order name: Ptt, Activated [facility] 07/19 13:33 Order name: Troponin (emerg Dept Use Only) [facility] 07/19 13:33 Order name: CKMB Creatine Kinase MB [facility] 07/19 13:33 Order name: Creatine Phosphokinase [facility] 07/19 13:33 Order name: Magnesium [facility] 07/19 13:40 Order name: Basic Metabolic Panel [facility] 07/19 13:40 Order name: Basic Metabolic Panel [facility] 07/19 13:40 Order name: CBC with Automated Diff [facility] 07/19 13:40 Order name: CBC with Automated Diff [facility] 07/19 13:40 Order name: Lipase [facility] 07/19 13:40 Order name: Lipase [facility] 07/19 13:40 Order name: Liver (Hepatic) Function [facility] 07/19 13:40 Order name: Liver (Hepatic) Function [facility] 07/19 11:46 Order name: IV Saline Lock; Complete Time: 12:08 [facility] 07/19 11:46 Order name: Labs collected and sent; Complete Time: 12:08 [facility] 07/19 11:46 Order name: Urine Dipstick-Ancillary (obtain specimen) [facility] 07/19 13:33 Order name: XRAY Chest (1 view) [facility] 07/19 13:33 Order name: EKG; Complete Time: 13:33 [facility] 07/19 13:33 Order name: Cardiac monitoring; Complete Time: 13:36 [facility] 07/19 13:33 Order name: EKG - Nurse/Tech; Complete Time: 15:16 [facility] 07/19 13:33 Order name: O2 Per Protocol; Complete Time: 13:36 [facility] 07/19 13:33 Order name: O2 Sat Monitoring; Complete Time: 13:36 [facility] 07/19 13:40 Order name: CONS Physician Consult [facility] 07/19 13:40 Order name: NPO EDMS Administered Medications: 12:05 CANCELLED (Duplicate Order): Zofran 4 mg IVP once; over 2 minutes cesar 12:47 Drug: morphine 4 mg Route: IVP; Site: left antecubital; aj 15:28 Follow up: Response: Pain is decreased aj 12:48 Drug: Phenergan 12.5 mg Route: IVP; Site: left antecubital; aj 15:29 Follow up: Response: No adverse reaction; Nausea is decreased aj 12:51 Drug: NS 0.9% 1000 ml Route: IV; Rate: 1 bolus; Site: left antecubital; aj 15:28 Follow up: Response: No adverse reaction; IV Status: Completed infusion; IV Intake: aj 1000ml 12:51 Drug: Rocephin - (cefTRIAXone) 1 grams Route: IVPB; Infused Over: 30 mins; Site: left aj antecubital; 15:29 Follow up: Response: No adverse reaction; IV Status: Completed infusion; IV Intake: 25mlaj 12:52 Drug: TORadol 30 mg Route: IVP; Site: left antecubital; aj 15:27 Follow up: Response: Pain is decreased aj 14:18 Drug: NS 0.9% 1000 ml Route: IV; Rate: 1 bolus; Site: left antecubital; aj 15:30 Follow up: Response: No adverse reaction; IV Status: Completed infusion; IV Intake: aj 1000ml 15:16 Drug: morphine 4 mg Route: IVP; Site: left antecubital; aj 15:30 Follow up: Response: Pain is decreased aj 15:16 Drug: Phenergan 12.5 mg Route: IVP; Site: left antecubital; aj 15:30 Follow up: Response: No adverse reaction; Pain is decreased aj Disposition: 07/19/18 13:32 Hospitalization ordered by Citlali Myles for Inpatient Admission. Preliminary diagnosis are Hydronephrosis with renal and ureteral calculous obstruction - 6 mm proximal calculi, Unspecified kidney failure. - Bed requested for Telemetry/MedSurg (observation). - Status is Inpatient Admission. aj - Condition is Fair. - Problem is new. - Symptoms have improved. UTI on Admission? No Signatures: Dispatcher [employer] EDMS Margie Ray Amanda, RN RN aj Anderson, Corey, MD MD cha Calderon, Audri RN RN aa5 Corrections: (The following items were deleted from the chart) 12:05 11:46 Zofran 4 mg IVP once; over 2 minutes ordered. cesar guerrero 15:15 13:32 Hospitalization Ordered by A Shameka ORTEGA for Inpatient Admission. Preliminary bd diagnosis is Hydronephrosis with renal and ureteral calculous obstruction - 6 mm proximal calculi; Unspecified kidney failure. Bed requested for Telemetry/MedSurg (observation). Status is Inpatient Admission. Condition is Fair. Problem is new. Symptoms have improved. UTI on Admission? No. cesar 15:33 15:15 07/19/2018 13:32 Hospitalization Ordered by A Shameka ORTEGA for Inpatient Admission. aj Preliminary diagnosis is Hydronephrosis with renal and ureteral calculous obstruction - 6 mm proximal calculi; Unspecified kidney failure. Bed requested for Telemetry/MedSurg (observation). Status is Inpatient Admission. Condition is Fair. Problem is new. Symptoms have improved. UTI on Admission? No. bd
--- NOTE | 2018-07-19 13:33 | ER ---
Nurse's Notes [facility] Name: Jose Armenta Age: 42 yrs Sex: Female : 1975 Arrival Date: 07/19/2018 Time: 11:34 Bed 15 Private MD: Citlali Myles C Diagnosis: Hydronephrosis with renal and ureteral calculous obstruction-6 mm proximal calculi;Unspecified kidney failure Presentation: 07/19 11:36 Presenting complaint: Patient states: left flank pain that began 2-3 days ago. Pt also aa5 reports difficulty urinating, denies burning with urination. Transition of care: patient was not received from another setting of care. Onset of symptoms was July 2018. Risk Assessment: Do you want to hurt yourself or someone else? Patient reports no desire to harm self or others. Initial Sepsis Screen: Does the patient meet any 2 criteria? No. Patient's initial sepsis screen is negative. Does the patient have a suspected source of infection? No. Patient's initial sepsis screen is negative. Care prior to arrival: None. 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 - Social history:: Smoking status: Patient/guardian denies using tobacco. - Ebola Screening: : No symptoms or risks identified at this time. - Family history:: not pertinent. Screenin:37 Abuse screen: Denies threats or abuse. Denies injuries from another. Nutritional aj screening: No deficits noted. Tuberculosis screening: No symptoms or risk factors identified. Fall Risk None identified. Assessment: 12:37 General: Appears in no apparent distress. comfortable, Behavior is calm, cooperative, aj appropriate for age. Pain: Complains of pain in posterior aspect of left lateral abdomen and anterior aspect of left lateral abdomen. Neuro: Level of Consciousness is awake, alert, obeys commands, Oriented to person, place, time, situation, Appropriate for age. Respiratory: Airway is patent Respiratory effort is even, unlabored, Respiratory pattern is regular, symmetrical. GI: Abdomen is flat, Bowel sounds present X 4 quads. Abd is soft and non tender X 4 quads. : Reports pain in left flank(s). Derm: Skin is pink, warm \T\ dry. normal. 15:26 Reassessment: Patient appears in no apparent distress at this time. No changes from aj previously documented assessment. Patient and/or family updated on plan of care and expected duration. Pain level reassessed. Patient is alert, oriented x 3, equal unlabored respirations, skin warm/dry/pink. Patient states feeling better. Patient states symptoms have improved. Vital Signs: 11:38 BP 108 / 72; Pulse 94; Resp 16 S; Temp 97.2(TE); Pulse Ox 97% on R/A; Weight 61.23 kg aa5 (R); Height 5 ft. 2 in. (157.48 cm) (R); Pain 10/10; 13:09 BP 125 / 68; Pulse 81; Resp 16; Pulse Ox 100% on R/A; aj 15:17 BP 117 / 73; Pulse 76; Resp 16; Pulse Ox 99% on R/A; aj 11:38 Body Mass Index 24.69 (61.23 kg, 157.48 cm) aa5 ED Course: 11:34 Patient arrived in ED. mr 11:35 Citlali Myles MD is Private Physician. mr 11:37 Triage completed. aa5 11:37 Arm band placed on. aa5 11:42 Jeremiah Marsh MD is Attending Physician. cesar 12:08 Initial lab(s) drawn, by ms, sent to lab. Inserted saline lock: 20 gauge in right em1 antecubital area, using aseptic technique. Blood collected. 12:13 Radha Brunner, RN is Primary Nurse. aj 12:25 CT Stone Protocol In Process Unspecified. EDMS 12:37 Patient has correct armband on for positive identification. aj 12:37 IV discontinued, intact, bleeding controlled, No redness/swelling at site. Pressure aj dressing applied, Patient requested IV be removed because of discomfort. Inserted saline lock: 20 gauge in left antecubital area, using aseptic technique. 13:28 Citlali Myles MD is Hospitalizing Provider. cesar 13:39 X-ray completed. Portable x-ray completed in exam room. Patient tolerated procedure jb2 well. 13:43 Abdomen 1 View (KUB) XRAY In Process Unspecified. EDMS 13:43 XRAY Chest (1 view) In Process Unspecified. EDMS 13:57 EKG done, by site damage prevention technician. reviewed by Jeremiah Marsh MD. 3 15:26 No provider procedures requiring assistance completed. aj Administered Medications: 12:05 CANCELLED (Duplicate Order): Zofran 4 mg IVP once; over 2 minutes cesar 12:47 Drug: morphine 4 mg Route: IVP; Site: left antecubital; aj 15:28 Follow up: Response: Pain is decreased aj 12:48 Drug: Phenergan 12.5 mg Route: IVP; Site: left antecubital; aj 15:29 Follow up: Response: No adverse reaction; Nausea is decreased aj 12:51 Drug: NS 0.9% 1000 ml Route: IV; Rate: 1 bolus; Site: left antecubital; aj 15:28 Follow up: Response: No adverse reaction; IV Status: Completed infusion; IV Intake: aj 1000ml 12:51 Drug: Rocephin - (cefTRIAXone) 1 grams Route: IVPB; Infused Over: 30 mins; Site: left aj antecubital; 15:29 Follow up: Response: No adverse reaction; IV Status: Completed infusion; IV Intake: 25mlaj 12:52 Drug: TORadol 30 mg Route: IVP; Site: left antecubital; aj 15:27 Follow up: Response: Pain is decreased aj 14:18 Drug: NS 0.9% 1000 ml Route: IV; Rate: 1 bolus; Site: left antecubital; aj 15:30 Follow up: Response: No adverse reaction; IV Status: Completed infusion; IV Intake: aj 1000ml 15:16 Drug: morphine 4 mg Route: IVP; Site: left antecubital; aj 15:30 Follow up: Response: Pain is decreased aj 15:16 Drug: Phenergan 12.5 mg Route: IVP; Site: left antecubital; aj 15:30 Follow up: Response: No adverse reaction; Pain is decreased aj Intake: 15:28 IV: 1000ml; Total: 1000ml. aj 15:29 IV: 25ml; Total: 1025ml. aj 15:30 IV: 1000ml; Total: 2025ml. aj Outcome: 13:32 Decision to Hospitalize by Provider. cesar 15:26 Admitted to Med/surg accompanied by tech, family with patient, via wheelchair, room aj 414, Report called to Finn 15:26 Condition: good 15:26 Instructed on the need for admit. 15:33 Patient left the ED. aj Signatures: Dispatcher [employer] Radha Meza, RN RN Jeremiah Lynn MD MD cha Rivera, Maria mr Jose, Jose Manuel Mallory1 Brandie Mcgraw, RN RN aa5 Dee Bilss 3
[2018-07-19] MEDS ORDERED: ACETAMINOPHEN 500 MG TAB PO PRN (13:37)
--- NOTE | 2018-07-19 13:48 | RAD REPORT ---
EXAM DESCRIPTION: RAD - Chest Single View - 07/19/2018 1:43 pm CLINICAL HISTORY: COUGH Chest pain. COMPARISON: Abdomen 1 View (KUB) dated 07/19/2018 FINDINGS: Portable technique limits examination quality. The lungs are grossly clear. The heart is normal in size. No displaced fractures. IMPRESSION: No acute intrathoracic process suspected.
[2018-07-19] MEDS: NA CHLORIDE 0.9% 1,000 ML IV SCH ×3 (14:00→20:49)
--- NOTE | 2018-07-19 14:08 | RAD REPORT ---
EXAM DESCRIPTION: RAD - Abdomen 1 View (KUB) - 07/19/2018 1:43 pm CLINICAL HISTORY: ABD PAIN Pain COMPARISON: Stone Protocol dated 07/19/2018 FINDINGS: The bowel gas pattern is non-obstructive. No evidence of free air or pneumatosis. [place] c alcification to the left of the L3 vertebral body is likely stone in the mid ureter. Additional left renal calculi also likely present. Cholecystectomy clips present. Hardware is noted at the L5-S1 junction.
[2018-07-19 14:21] LABS: Protime INR 1.09
[2018-07-19 14:59] LABS: CKMB Creatine Kinase MB < 1.0 ng/mL (0.3-3.6); Creatine Phosphokinase 44 U/L (26-192); Magnesium 1.8 mg/dL (1.8-2.4); NT PRO-BNP 224 pg/mL (<125); Troponin (Emerg Dept Use Only) < 0.02 ng/mL (0.0-0.045)
[2018-07-19 15:59] VITALS: BMI 25.2
[2018-07-19] MEDS ORDERED: PROPOFOL 200 MG/20 ML VIAL IV ONE (16:38)
[2018-07-19] MEDS ORDERED: FENTANYL CITR 100 MCG/2 ML ONE (16:38)
[2018-07-19] MEDS ORDERED: DEXAMETHASONE 10 MG/ML VIAL ONE (17:14)
[2018-07-19] MEDS ORDERED: ONDANSETRON HCL 40 MG/20 ML VIAL ONE (17:14)
--- NOTE | 2018-07-19 17:47 | RAD REPORT ---
EXAM DESCRIPTION: RAD - Urography Retrograde - 07/19/2018 5:37 pm CLINICAL HISTORY: STENT COMPARISON: No comparisons FINDINGS: Fluoroscopic imaging of the abdomen is submitted as part of a left-sided stent procedure w ith cystoscopy. Details of procedure not available. Total fluoro time: 0.44 seconds.
[2018-07-19] MEDS ORDERED: MEPERIDINE HCL 50 MG/ML AMP ONE (17:49)
--- NOTE | 2018-07-19 17:51 | EKG ---
Test Date: 2018-07-19 Test Time: 13:53:25 Sheet Rock Installer: ALIE MEASUREMENT RESULTS: Intervals: Rate: 62 AZ: 150 QRSD: 78 QT: 422 QTc: 428 Ball: P: 32 AZ: 150 QRS: 74 T: 30 INTERPRETIVE STATEMENTS: Normal sinus rhythm Normal ECG Compared to ECG 06/14/2008 12:22:51 Sinus tachycardia no longer present Myocardial infarct finding no longer present ST (T wave) deviation no longer present Possible ischemia no longer present Electronically Signed On 07-19-18 17:50:33 CDT by Carmine Frazier
[2018-07-19] MEDS: PROMETHAZINE 25 MG/ML VIAL IV PRN (20:48)
[2018-07-19] MEDS: MORPHINE 4 MG/ML SYR IV PRN (20:48)
--- NOTE | 2018-07-19 22:08 | CON ---
History Of Present Illness: She is a pleasant 42-year-old female, patient of mine, who developed left flank pain and radiation to the front. This started 3 days ago, was severe enough to cause some nausea and vomiting. She has not eaten in over 24 hours. She has had some chills. Denies fevers. Denies diarrhea, constipation. She had a CT scan showing a 6 mm stone at left L3. She came to the emergency room. We decided to admit her. She will need a cystoscopy and left double-J stent placement. I reviewed all the general information, alternatives, and risks with her, and she wishes to proceed. She will need a left ESWL next week. She has a history of stones and has had an ESWL in the past. Past Medical History: Kidney stones, WPW status post ablation. No diabetes, no hypertension, no heart disease, no WI. She also history of migraines. Past Surgical History: WPW ablation, ESWL, back surgery in November 2017, laminectomy, also history of hysterectomy, also history of cholecystectomy. Allergies: NO KNOWN DRUG ALLERGIES. Medications: Include Cymbalta, Xanax, __, shots for migraine ___ b.i.d. Social History: No tobacco or smoking. Alcohol occasionally only. No IV drug use. Family History: Negative. Review of Systems: Ten-point review of systems is negative except as mentioned above. Physical Examination: GENERAL APPEARANCE: A well-developed female, in no acute distress. VITAL SIGNS: 97.8, pulse 78, respirations 18, BP 125/67, 97% saturations. HEENT: Atraumatic, normocephalic. Lungs: Clear. Heart: S1, S2. Abdomen: Soft, nontender. Mild left flank tenderness. Extremities: Normal range of motion. Laboratory Data: White count normal at 6.1, H and H at 12 and 37, platelet count 187. Coagulations: PT 12.9, INR 1.09, PTT 26. Chemistry shows sodium 139, potassium 3.9, chloride 103, carbon dioxide 30, BUN 14, creatinine 1.5 with a GFR of 38, glucose 92, calcium 9.3. Amylase, lipase normal. NT-pro- beta natriuretic peptide 224. Her urine studies show pH 6.0, specific gravity greater than 1.030, ketones 4+, rbc 5 to 10, wbc less than 5, squamous epithelial cells 5 to 10, bacteria less than 20. test negative. Assessment: A 6 mm stone left upper ureter by L3. Plan: For cysto, stent. The patient can rest the rest of the night and home in the morning. Follow up Tuesday. She will do a KUB early in the morning and see me at 8, and then she will preop on Tuesday for the left ESWL on Tuesday. ROMAN/JANE Voice ID: [id number] Report ID: [id number] MTDD
--- NOTE | 2018-07-20 01:26 | HP ---
Date of Admission: 07/19/2018 Chief Complaint: Abdominal pain. History Of Present Illness: A 42-year-old female patient came into emergency room with complaints of abdominal pain that started this week on Tuesday and over period of last 2 to 3 days, her pain has go tten worse that she decided to come to emergency room today. After she was evaluated in the emergenc y room, she was diagnosed as having bilateral kidney stone with obstructive urinary stone in the uret er with hydronephrosis. The patient was admitted to the hospital and Dr. Sims was consulted who too k the patient to surgery late afternoon, and I saw her this evening soon after she came out of surger y while she was in the holding room. Details were discussed with Dr. Sims. Allergies: PENICILLIN. Medications: At home, she takes alprazolam 0.25 mg 2 times a day as needed for anxiety, Caltrate plu s D 1 tablet 2 times a day, duloxetine 60 mg p.o. daily, Topamax 50 mg at bedtime. Review of Systems: Genitourinary: As mentioned above. GI: As mentioned above. All other systems reviewed and negative. Past Medical History: Significant for migraine, anxiety, hyperlipidemia. Past Surgical History: Cholecystectomy, hysterectomy, appendectomy, ablation for WPW syndrome, and f oot surgery. Family History: Significant for coronary artery disease, hyperlipidemia, COPD, and osteoporosis. Social History: Negative for smoking, alcohol use. Physical Examination: Vital Signs: This evening, temperature 97.8, pulse 78, respiratory rate 18, blood pressure 125/67. General: Awake, alert, oriented, not in distress. HEENT: Head atraumatic, normocephalic. Conjunctivae nonerythematous. Sclerae white. Mouth, no thr ush or edema noted. Ears/Nose, no mass, lesion, discharge noted. Neck: Supple. No JVD, lymph nodes, bruit, thyromegaly noted. Lungs: Bilateral good equal air entry. Clear to auscultation. No rhonchi. No rales. Heart: Normal heart sounds, no murmur or gallop. Abdomen: Soft, bowel sounds normal. No guarding, rigidity, tenderness, mass, hepatosplenomegaly, dis tention, or bruit noted. Extremities: No leg edema. No calf tenderness. Skin: No rash, ulcer, cellulitis. Lymphatics: No lymph node enlargement in neck, supraclavicular, infraclavicular region. Neuro: No focal neurological deficit. Chest: Unremarkable. External Genitalia: Deferred. Rectal: Deferred. Laboratory Data: White count 6.1, hemoglobin 12.7, platelets 187. Sodium 139, potassium 3.9, chlori de 103, bicarb 30, BUN 14, creatinine 1.50, glucose 92. Liver function tests unremarkable. Lipase 1 26. Urinalysis: 5 to 10 rbc, wbc less than 5, bacteria less than 20, negative for nitrite and анна ase. CAT scan of the abdomen per kidney stone protocol shows 6 mm stone in proximal left ureter resu lting in [id number] left-sided hydronephrosis and bilateral nephrolithiasis greater on the left . Impression: 1.Left ureter stone with hydronephrosis. 2.Bilateral kidney stones. 3.Generalized anxiety disorder. 4.Hyperlipidemia. 5.Migraine. Plan: Admit the patient to hospital for further evaluation and management of this problem. The clifford ent has a Vo catheter and Dr. Sims has advised to remove her Vo catheter tomorrow before she g oes home. Possible discharge to go home tomorrow if her condition is stable. Dr. Sims has written prescription for tramadol and Tylenol No. 3 as well as Bactrim and oxybutynin for patient to take it and he wants to see patient this week on Tuesday and he will talk to her about lithotripsy to be done. The patient should drink 60 to 80 ounce of water a day and we will see if Dr. Sims has sent any st one for stone analysis. If not down the line once she recovers from this, we will have to do 24-hour urine test. All these details were discussed with the patient's and parents, and I will roberto carlos k to her in more details tomorrow as when I saw her she was still under effect of anesthesia in [facility] room. SCD was present for DVT prophylaxis. CANELO/MODL Voice ID: [id number]
[2018-07-20 04:49] LABS: Absolute Lymphocytes (CBC) 0.4 K/uL (0.7-4.9); Absolute Neutrophil 2.9 K/uL (1.8-8.0); Hematocrit 34.6 % (36.0-45.0); Lymphocytes % 12.8 % (15.3-44.8); MCH 29.5 pg (27.0-35.0); MPV 9.9 fL (7.6-11.3); Monocytes % 1.3 % (3.3-12.3); RBC Red Blood Cell Count 3.89 M/uL (3.86-4.86)
[2018-07-20 04:57] VITALS: O2SAT 98
[2018-07-20 05:13] LABS: ALT/SGPT 17 U/L (12-78); AST/SGOT 12 U/L (15-37); Albumin 3.1 g/dL (3.4-5.0); Alkaline Phosphatase 64 U/L (45-117); BUN Blood Urea Nitrogen 14 mg/dL (7-18); Bicarbonate 27 mmol/L (21-32); Bilirubin Direct < 0.1 mg/dL (0-0.2); Bilirubin Total 0.3 mg/dL (0.2-1.0); Glucose Level 123 mg/dL (74-106); Lipase 178 U/L (73-393); Potassium 4.8 mmol/L (3.5-5.1); Protein, Total 6.7 g/dL (6.4-8.2); Sodium Level 142 mmol/L (136-145)
[2018-07-20] MEDS: MORPHINE 4 MG/ML SYR IV PRN (06:19)
[2018-07-20] MEDS: NA CHLORIDE 0.9% 1,000 ML IV SCH (06:19)
[2018-07-20] MEDS: PROMETHAZINE 25 MG/ML VIAL IV PRN (06:19)
[2018-07-20 08:59] LABS: Blood Morphology Comment NOT SEEN (NOT SEEN); Platelet Estimate ADEQ; Urine White Blood Cell Casts OK
[2018-07-20] MEDS ORDERED: CEFTRIAXONE 1 GM/NS 50 ML 1 GM/50 ML BAG IV SCH (09:00)
[2018-07-20] MEDS ORDERED: CEFTRIAXONE/SWI 1gm 1 GM/10 ML SYR IVP SCH (09:00)
--- NOTE | 2018-07-20 09:22 | RAD REPORT ---
EXAM DESCRIPTION: RAD - Abdomen 1 View (KUB) - 07/20/2018 8:24 am CLINICAL HISTORY: ureterolithiasis Pain COMPARISON: Abdomen 1 View (KUB) dated 07/19/2018 FINDINGS: The bowel gas pattern is non-obstructive. No evidence of free air or pneumatosis. Left ifeanyi ble-J stent is in place. Several small calculi are present superimposed on the left renal shadow. Lumbosacral orthopedic hardware is present.
[2018-07-20 12:23] VITALS: BP 105/53; TEMP 98.2
--- NOTE | 2018-07-21 05:13 | DS ---
Date of Discharge: 07/20/2018 Disposition: Discharged to go home. Physical Examination: HEENT: Unremarkable. Lungs: Clear to auscultation. Heart: Sounds normal. Abdomen: Soft. Bowel sounds normal. No guarding, rigidity, tenderness, or distention. Extremities: No leg edema. Discharge Medication Instruction: 1.Continue all prior home medications except do not take any calcium supplement. 2.Take new medication as prescribed by Dr. Sims that includes Bactrim DS, oxybutynin, Tylenol No. 3 , tramadol. 3.Follow up with Dr. Sims tomorrow. 4.Follow up at my office in 2-3 weeks. Laboratory Data: Last white count this morning 3.4, hemoglobin 11.5, platelets 162. Yesterday, whit e count 6.1, hemoglobin 12.7, platelets 187. Yesterday, creatinine was 1.50. This morning, creatini ne 0.90. Liver function tests unremarkable. Glucose 123. Hospital Course: A 42-year-old female patient admitted to the hospital with abdominal pain. Please see dictated H and P for more information. After the patient was evaluated in the ER, she was admitt ed to the hospital left ureter stone with hydronephrosis. Dr. Sims from Urology was cons ulted and the patient did actually have surgery done by Dr. Sims yesterday evening and he was able t o put a stent in the left ureter and he is planning to do lithotripsy on an outpatient basis. Today, the patient was feeling much better. I have advised her to drink about 60-80 ounces of water a day and I will follow up on an outpatient basis. We will pursue 24-hour urine collection test for furthe r workup of her kidney stone on an outpatient basis. Final Diagnoses: 1.Left ureter stone with hydronephrosis. 2.Bilateral kidney stones. 3.Generalized anxiety disorder. 4.Hyperlipidemia. 5.Migraine. CANELO/MODL Voice ID: [id number] Report ID: [id number]
== END 2018-07-20 13:20 | disposition home or self-care (01) ==
LOC: ER 11:31 → ERHOLD 13:34 → 4TH 15:26
PROVIDERS: ADMIT Internal Medicine; ATTEND Internal Medicine
PROC: 0T778DZ Dilation of Left Ureter with Intraluminal Device, Via Natural or Artificial Opening Endoscopic (ICD-10-PCS; principal; 2018-07-19 16:30)
DX: N13.2 Hydronephrosis with renal and ureteral calculous obstruction (principal); F41.9 Anxiety disorder, unspecified; E78.5 Hyperlipidemia, unspecified; G43.909 Migraine, unspecified, not intractable, without status migrainosus; Z88.0 Allergy status to penicillin
CPT/HCPCS: 36415; 71045; 74018; 74176; 74420; 76377; 80048; 80076; 81003; 81015; 81025; 82150; 82550; 82553; 83690; 83735; 83880; 84484; 84550; 85025; 85610; 85730; 87086; 87088; 93005; 96365; 96366; 96375; 99285; G0378; J0696; J1100; J2175; J2405; J2550; J3010; J7030; Q9967

== ENCOUNTER 2018-07-25 09:51 | Day surgery (SDC) | payer BC ==
[2018-07-21 10:35] LABS: Absolute Lymphocytes (CBC) 2.1 K/uL (0.7-4.9); Absolute Monocytes 0.5 K/uL (0.1-1.3); Absolute Neutrophil 3.1 K/uL (1.8-8.0); Basophils % 0.7 % (0-1.3); Eosinophils % 0.8 % (0-4.4); Lymphocytes % 36.2 % (15.3-44.8); MCH 29.2 pg (27.0-35.0); MCV 88.2 fL (80-100); MPV 10.2 fL (7.6-11.3); Monocytes % 8.4 % (3.3-12.3); RBC Red Blood Cell Count 3.97 M/uL (3.86-4.86)
[2018-07-21 10:38] LABS: Protime INR 1.02
[2018-07-21 10:40] LABS: Urine Appearance CLOUDY; Urine Bilirubin NEGATIVE (NEG); Urine Blood 3+ (NEG); Urine Color YELLOW; Urine Glucose NEGATIVE (NEG); Urine Protein 1+ (NEG); Urine Urobilinogen 0.2 mg/dL (0.2-1.0)
[2018-07-21 10:46] LABS: Potassium 3.3 mmol/L (3.5-5.1)
[2018-07-21 10:47] LABS: Phosphorus 2.7 mg/dL (2.5-4.9); Uric Acid 4.4 mg/dL (2.6-6.0)
[2018-07-21 10:52] LABS: Urine Microscopic Reflex ORDER UMIC
[2018-07-21 11:15] LABS: Urine Bacteria <20 /HPF (<20); Urine Culture Reflex Order NOT NEEDED; Urine RBC >50 /HPF (NONE SEEN)
--- NOTE | 2018-07-21 11:48 | EKG ---
Test Date: 2018-07-21 Test Time: 09:40:59 Photoengraving Finisher: ROSALINDA MEASUREMENT RESULTS: Intervals: Rate: 59 KS: 138 QRSD: 76 QT: 398 QTc: 394 [place]: P: 39 KS: 138 QRS: 83 T: 13 INTERPRETIVE STATEMENTS: Sinus bradycardia Otherwise normal ECG Compared to ECG 07/19/2018 13:53:25 Sinus rhythm no longer present Electronically Signed On 07-21-18 11:47:57 CDT by Carmine Frazier
--- OUTSIDE RECORDS SUMMARY | 2018-07-25 09:56 | XMS REPORT | Clinical Summary ---
:1975 Author Organization [facility] Address [address] [place] [address] Care Team Providers Name Role Phone Asked, [...] 09/26/2018 Office Visit Neurology Zara Nava MD [address] [facility] [address] [place] [address] Health Maintenance Due Date Last Done Comments CERVICAL CANCER SCREENING 1995 INFLUENZA VACCINE 06/14/2018 Results Not on fileafter 07/24/2017 Insurance Payer Benefit Plan / Group Subscriber ID Type Phone Address BCBS BCBS OUT OF STATE xxxxxxxxxxxxxxx PPO y [phone] [phone]
--- OUTSIDE RECORDS SUMMARY | 2018-07-25 09:57 | XMS REPORT | Continuity of Care Document ---
[...] 015 Medical Group ASCOMP-CODEINE one bid Active 06-443-37-30 MG prn 014 Medical CAPS headaches. Group [...] Temperature Oral (F) 98.1 F 05/15/2015 Medical [facility] Heart Rate 70 05/15/2015 Medical Group Systolic (mm Hg) 111 05/15/2015 Medical Group Diastolic (mm Hg) 74 05/15/2015 Medical Group Height 63.5 11/23/2013 Medical Group Weight 145 11/23/2013 Medical [facility] Heart Rate 58 11/23/2013 Medical [facility] Temperature Oral (F) 97.4 F 11/23/2013 Medical Group Systolic (mm Hg) 160 11/23/2013 Medical Group Diastolic (mm Hg) 78 11/23/2013 Medical [facility] Encounters Location Location Encounter Encounter Reason Attending ADM DC Status Source Details Type Number For Provider Date Date Visit [facility] Office [id number] [facility] 05/15 05/15 [facility] Visit 0 [facility] Lab Report [id number] Bear 05/15 05/15 Jigar 0 [facility] [place] Procedures Procedure Code Date Perfomer Comments Source colonoscopy [id number] 03/05/2008 Done Medical [facility] colonoscopy [id number] 03/05/2008 Complete Medical [facility]
--- OUTSIDE RECORDS SUMMARY | 2018-07-25 09:57 | XMS REPORT | Continuity of Care Document ---
:[address] [facility] Care Team Providers Name Role Phone MD Stefany, Bear Unavailable Unavailable Insurance Providers Payer name Policy type / Coverage Policy ID Covered constitution party ID Policy Maza type AETNA - NAP - CHOICE (POS II) AETNA - NAP - CHOICE (POS II) Encounters Encounter Performer Location Date Office Visit Bear Mccall MD [facility] May 15, 2015 Allergies, Adverse Reactions, [...] as April 11, 2013 Active needed ASCOMP-CODEINE 11-850-39-30 MG one bid prn headaches. Nov 23, [...] 2013Nov 23, platelet count PLATELETS 233 K/CMM 515-269 0405 /mm3 May 15, hemoglobin, blood HGB 12.8 g/dL 12.0-16.0 2014May 15, hematocrit, blood HCT 39.3 % 36.0-48.0 2014May 15, platelet count PLATELETS 291 K/CMM 137-615 5018 /mm3 Nov 23, cholesterol, serum CHOLESTEROL 235 mg/dl <=199 High 2013Nov 23, triglyceride, serum, TRIGLYCERIDE 146 mg/dl <=149 2013Nov 23, HDL cholesterol, HDL 64 mg/dl >=61 2013Nov 23, LDL cholesterol, LDL 142 mg/dl <=99 High 2013Nov 23, sodium, serum SODIUM 139 MEQ/L 536-870 2252 mmol/L Nov 23, potassium, serum POTASSIUM 3.8 [...] 2014May 15, sodium, serum SODIUM 140 MEQ/L 241-796 2962 mmol/L May 15, potassium, serum POTASSIUM 4.7 [...]
--- OUTSIDE RECORDS SUMMARY | 2018-07-25 09:57 | XMS REPORT | Continuity of Care Document ---
:1975 Author Organization [facility] Care Team Providers Name Role Phone MD Stefany, Bear Unavailable Unavailable Insurance Providers Payer name Policy type / Coverage Policy ID Covered green party ID Policy Maza type AETNA - NAP - CHOICE (POS II) AETNA - NAP - CHOICE (POS II) Encounters Encounter Performer Location Date Lab Report Bear Mccall MD [facility] May 15, 2015 Allergies, Adverse Reactions, Alerts [...] as April 11, 2013 Active needed ASCOMP-CODEINE 13-586-30-30 MG one bid prn headaches. Nov 23, [...] 2013Nov 23, platelet count PLATELETS 233 K/CMM 897-216 0959 /mm3 May 15, hemoglobin, blood HGB 12.8 g/dL 12.0-16.0 2014May 15, hematocrit, blood HCT 39.3 % 36.0-48.0 2014May 15, platelet count PLATELETS 291 K/CMM 161-439 3223 /mm3 Nov 23, cholesterol, serum CHOLESTEROL 235 mg/dl <=199 High 2013Nov 23, triglyceride, serum, TRIGLYCERIDE 146 mg/dl <=149 2013Nov 23, HDL cholesterol, HDL 64 mg/dl >=61 2013Nov 23, LDL cholesterol, LDL 142 mg/dl <=99 High 2013Nov 23, sodium, serum SODIUM 139 MEQ/L 274-831 0546 mmol/L Nov 23, potassium, serum POTASSIUM 3.8 [...] 2014May 15, sodium, serum SODIUM 140 MEQ/L 757-388 2763 mmol/L May 15, potassium, serum POTASSIUM 4.7 [...]
[2018-07-25] MEDS ORDERED: Ringers Lactate 1,000 ML IV ONE (10:34)
[2018-07-25] MEDS ORDERED: GENTAMICIN 100 MG/100 ML BAG 100 MG/100 ML BAG IV ONE (10:34)
[2018-07-25] MEDS ORDERED: PROPOFOL 200 MG/20 ML VIAL IV ONE (11:16)
[2018-07-25] MEDS ORDERED: MIDAZOLAM HCL 2 MG/2 ML INJ ONE (11:17)
[2018-07-25] MEDS ORDERED: LIDOCAINE 1% MPF 2 ML AMPULE ONE (11:17)
[2018-07-25] MEDS ORDERED: FENTANYL CITR 100 MCG/2 ML ONE (11:17)
--- NOTE | 2018-07-25 12:23 | RAD REPORT ---
EXAM DESCRIPTION: RAD - Abdomen 1 View (KUB) - 07/25/2018 12:04 pm CLINICAL HISTORY: Flank pain Pain COMPARISON: Abdomen 1 View (KUB) dated 07/20/2018; Abdomen 1 View (KUB) dated 07/19/2018 FINDINGS: The bowel gas pattern is non-obstructive. No evidence of free air or pneumatosis. Left ifeanyi ble-J stent is in place. Small calcifications are seen in the inferior left kidney, unchanged. Hardware is in place lumbosacral junction. Cholecystectomy clips are seen. IMPRESSION: Left double-J stent is in place. Inferior left nephrolithiasis, unchanged.
[2018-07-25] MEDS: MEPERIDINE HCL 50 MG/ML AMP ONE ×2 (13:22→13:27)
[2018-07-25] MEDS ORDERED: MEPERIDINE HCL 50 MG/ML AMP ONE (13:45)
[2018-07-25] MEDS ORDERED: HYDROCODONE/APAP 7.5/325 MG TAB ONE ×2 (14:28→14:32)
[2018-07-25 14:31] VITALS: BP 116/60; TEMP 97.4; O2SAT 98
== END 2018-07-25 15:17 | disposition home or self-care (01) ==
LOC: OR 09:51
PROVIDERS: ATTEND Urology
PROC: 0TF4XZZ Fragmentation in Left Kidney Pelvis, External Approach (ICD-10-PCS; principal; 2018-07-25 12:45)
DX: N20.0 Calculus of kidney (principal); Q62.39 Other obstructive defects of renal pelvis and ureter
CPT/HCPCS: 36415; 50590; 74018; 80048; 81003; 81015; 84100; 84550; 85025; 85610; 85730; 87086; 87088; 93005; J1580; J2001; J2175; J2250; J3010

== ENCOUNTER 2019-03-22 17:17 | Emergency (ER) | payer BC ==
--- OUTSIDE RECORDS SUMMARY | 2019-03-22 17:18 | XMS REPORT | Clinical Summary ---
:1975 Author Organization [facility] Address [address] [place] [address] Care Team Providers Name Role Phone Asked, No Pcp Primary Care Provider Unavailable Allergies Active Allergy Reactions Severity Noted Date Comments Codeine Penicillins Medications No known medications Active Problems Problem Noted Date DDD (degenerative [...] Assigned at Date Recorded Not on file Job Start Date Occupation Industry Not on file Not on file Not on file Travel History Travel Start Travel End No recent travel history available. Last Filed Vital Signs Not on file Plan of Treatment Health Maintenance Due Date Last Done Comments CERVICAL CANCER SCREENING 1995 INFLUENZA VACCINE 06/14/2019 Results Not on fileafter 03/21/2018 Insurance Payer Benefit Plan / Group Subscriber ID Type Phone Address BCBS BCBS OUT OF STATE xxxxxxxxxxxxxxx PPO (Home) [place] [phone] Advance Directives Patient has advance care planning documents on file. For more information, please contact:Kameron Schusterist[address] [place] [address]
--- OUTSIDE RECORDS SUMMARY | 2019-03-22 17:19 | XMS REPORT | Continuity of Care Document ---
[...] 015 Medical Group ASCOMP-CODEINE one bid Active 68-611-65-30 MG prn 014 Medical CAPS headaches. Group [...] Temperature Oral (F) 98.1 F 05/15/2015 Medical [facility] Heart Rate 70 05/15/2015 Medical Group Systolic (mm Hg) 111 05/15/2015 Medical Group Diastolic (mm Hg) 74 05/15/2015 Medical Group Height 63.5 11/23/2013 Medical Group Weight 145 11/23/2013 Medical [facility] Heart Rate 58 11/23/2013 Medical [facility] Temperature Oral (F) 97.4 F 11/23/2013 Medical Group Systolic (mm Hg) 160 11/23/2013 Medical Group Diastolic (mm Hg) 78 11/23/2013 Medical [facility] Encounters Location Location Encounter Encounter Reason Attending ADM DC Status Source Details Type Number For Provider Date Date Visit [facility] Office [id number] [facility] 05/15 05/15 [facility] Visit 0 Medical [facility] Lab Report [id number] Bear 05/15 05/15 Jigar 0 Medical [facility] [place] Procedures Procedure Code Date Perfomer Comments Source colonoscopy [id number] 03/05/2008 Done Medical [facility] colonoscopy [id number] 03/05/2008 Complete Medical [facility]
--- OUTSIDE RECORDS SUMMARY | 2019-03-22 17:19 | XMS REPORT | Continuity of Care Document ---
:1975 Author Organization [facility] Care Team Providers Name Role Phone MD Stefany, Bear Unavailable Unavailable Insurance Providers Payer name Policy type / Coverage Policy ID Covered alliance party ID Policy Maza type AETNA - NAP - CHOICE (POS II) AETNA - NAP - CHOICE (POS II) Encounters Encounter Performer Location Date Lab Report Bear Mccall MD [facility] May 15, 2015 Allergies, Adverse Reactions, Alerts [...] as April 11, 2013 Active needed ASCOMP-CODEINE 81-839-35-30 MG one bid prn headaches. Nov 23, [...] 2013Nov 23, platelet count PLATELETS 233 K/CMM 905-129 5277 /mm3 May 15, hemoglobin, blood HGB 12.8 g/dL 12.0-16.0 2014May 15, hematocrit, blood HCT 39.3 % 36.0-48.0 2014May 15, platelet count PLATELETS 291 K/CMM 778-826 6452 /mm3 Nov 23, cholesterol, serum CHOLESTEROL 235 mg/dl <=199 High 2013Nov 23, triglyceride, serum, TRIGLYCERIDE 146 mg/dl <=149 2013Nov 23, HDL cholesterol, HDL 64 mg/dl >=61 2013Nov 23, LDL cholesterol, LDL 142 mg/dl <=99 High 2013Nov 23, sodium, serum SODIUM 139 MEQ/L 510-525 3097 mmol/L Nov 23, potassium, serum POTASSIUM 3.8 [...] 2014May 15, sodium, serum SODIUM 140 MEQ/L 239-325 1343 mmol/L May 15, potassium, serum POTASSIUM 4.7 [...]
--- OUTSIDE RECORDS SUMMARY | 2019-03-22 17:19 | XMS REPORT | Continuity of Care Document ---
[...] Location Date Office Visit Bear Mccall MD [facility] May 15, 2015 Allergies, Adverse [...] as April 11, 2013 Active needed ASCOMP-CODEINE 48-179-64-30 MG one bid prn headaches. Nov 23, [...] 2013Nov 23, platelet count PLATELETS 233 K/CMM 208-518 6335 /mm3 May 15, hemoglobin, blood HGB 12.8 g/dL 12.0-16.0 2014May 15, hematocrit, blood HCT 39.3 % 36.0-48.0 2014May 15, platelet count PLATELETS 291 K/CMM 490-135 8373 /mm3 Nov 23, cholesterol, serum CHOLESTEROL 235 mg/dl <=199 High 2013Nov 23, triglyceride, serum, TRIGLYCERIDE 146 mg/dl <=149 2013Nov 23, HDL cholesterol, HDL 64 mg/dl >=61 2013Nov 23, LDL cholesterol, LDL 142 mg/dl <=99 High 2013Nov 23, sodium, serum SODIUM 139 MEQ/L 149-051 5226 mmol/L Nov 23, potassium, serum POTASSIUM 3.8 [...] 2014May 15, sodium, serum SODIUM 140 MEQ/L 053-247 4792 mmol/L May 15, potassium, serum POTASSIUM 4.7 [...]
[2019-03-22] MEDS ORDERED: DIPHENHYDRAMINE 50 MG/ML VIAL ONE (18:47)
[2019-03-22] MEDS ORDERED: METOCLOPRAMIDE 10 MG/2mL INJ ONE (18:47)
[2019-03-22] MEDS ORDERED: NA CHLORIDE 0.9% 100 ML IV ONE (18:47)
[2019-03-22] MEDS ORDERED: DEXAMETHASONE 10 MG/ML VIAL ONE (18:50)
--- NOTE | 2019-03-22 19:19 | EDPHYS ---
Physician Documentation [facility] Name: Jose Armenta Age: 43 yrs Sex: Female : 1975 Arrival Date: 03/22/2019 Time: 17:18 Bed 30 Private MD: ED Physician Ken Hernandez HPI: 03/22 18:29 This 43 yrs old Female presents to ER via Ambulatory with complaints of jr8 Headache. 18:29 The patient complains of pain to the forehead, left eye and left temporal area. The jr8 patient describes the headache as throbbing. Onset: The symptoms/episode began/occurred acutely, yesterday. Associated signs and symptoms: Pertinent positives: nausea, Photophobia. Severity of symptoms: At its worst the pain was moderate, in the emergency department the pain is unchanged. Headache History: The patient has had previous headaches and this one is similar to previous episodes. The symptoms are alleviated by nothing. the symptoms are aggravated by lights, movement, noise, stress. The patient has experienced similar episodes in the past, a few times. The patient has not recently seen a physician. Stated that she started new migraine medication over the past couple of months which has substantially improved her migraines. Started to have a migraine over the past couple days that is resistant to her immediate abortient drug. 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 - Social history:: Smoking status: Patient/guardian denies using tobacco. - Ebola Screening: : No symptoms or risks identified at this time. ROS: 18:29 Eyes: Negative for injury, pain, redness, and discharge, ENT: Negative for injury, jr8 pain, and discharge, Neck: Negative for injury, pain, and swelling, Cardiovascular: Negative for chest pain, palpitations, and edema, Respiratory: Negative for shortness of breath, cough, wheezing, and pleuritic chest pain, Abdomen/GI: Negative for abdominal pain, nausea, vomiting, diarrhea, and constipation, Back: Negative for injury and pain, MS/Extremity: Negative for injury and deformity, Skin: Negative for injury, rash, and discoloration. 18:29 Neuro: Positive for headache. Exam: 18:29 Eyes: Pupils equal round and reactive to light, extra-ocular motions intact. Lids and jr8 lashes normal. Conjunctiva and sclera are non-icteric and not injected. Cornea within normal limits. Periorbital areas with no swelling, redness, or edema. ENT: Nares patent. No nasal discharge, no septal abnormalities noted. Tympanic membranes are normal and external auditory canals are clear. Oropharynx with no redness, swelling, or masses, exudates, or evidence of obstruction, uvula midline. Mucous membranes moist. Neck: Trachea midline, no thyromegaly or masses palpated, and no cervical lymphadenopathy. Supple, full range of motion without nuchal rigidity, or vertebral point tenderness. No Meningismus. Cardiovascular: Regular rate and rhythm with a normal S1 and S2. No gallops, murmurs, or rubs. Normal PMI, no JVD. No pulse deficits. Respiratory: Lungs have equal breath sounds bilaterally, clear to auscultation and percussion. No rales, rhonchi or wheezes noted. No increased work of breathing, no retractions or nasal flaring. Abdomen/GI: Soft, non-tender, with normal bowel sounds. No distension or tympany. No guarding or rebound. No evidence of tenderness throughout. Back: No spinal tenderness. No costovertebral tenderness. Full range of motion. Skin: Warm, dry with normal turgor. Normal color with no rashes, no lesions, and no evidence of cellulitis. MS/ Extremity: Pulses equal, no cyanosis. Neurovascular intact. Full, normal range of motion. Neuro: Awake and alert, GCS 15, oriented to person, place, time, and situation. Cranial nerves II-XII grossly intact. Motor strength 5/5 in all extremities. Sensory grossly intact. Cerebellar exam normal. Normal gait. Vital Signs: 17:25 BP 128 / 79; Pulse 84; Resp 18; Temp 97.8(TE); Pulse Ox 98% on R/A; Weight 56.7 kg; ss Height 5 ft. 3 in. (160.02 cm); Pain 10/10; 17:59 BP 130 / 78; Pulse 59; Resp 17 S; Temp 97.9(O); Pulse Ox 97% on R/A; ca1 18:53 BP 122 / 71; Pulse 71; Resp 16 S; Temp 98(O); Pulse Ox 95% on R/A; ca1 19:15 BP 109 / 84; Pulse 64; Resp 17 S; Temp 98(O); Pulse Ox 95% on R/A; ca1 17:25 Body Mass Index 22.14 (56.70 kg, 160.02 cm) ss MDM: 18:02 Patient medically screened. jr8 19:18 Data reviewed: vital signs, nurses notes, and as a result, I will discharge patient. jr8 Data interpreted: Pulse oximetry: on room air is 95 %. Interpretation: normal. Counseling: I had a detailed discussion with the patient and/or guardian regarding: the historical points, exam findings, and any diagnostic results supporting the discharge/admit diagnosis, the need for outpatient follow up, a family practitioner, to return to the emergency department if symptoms worsen or persist or if there are any questions or concerns that arise at home. Response to treatment: the patient's symptoms have markedly improved after treatment. 03/22 18:19 Order name: IV; Complete Time: 18:35 jr8 Administered Medications: 18:36 Not Given (Physician Discretion): Decadron 0.5 mg PO once jr8 18:38 Drug: Decadron - Dexamethasone 10 mg Route: IVP; Site: right antecubital; ca1 19:15 Follow up: Response: No adverse reaction; Pain is decreased ca1 18:40 Drug: Reglan 10 mg Route: IVP; Site: right antecubital; rv 19:14 Follow up: Response: No adverse reaction; Pain is decreased ca1 18:40 Drug: Benadryl 25 mg Route: IVP; Site: right antecubital; rv 19:15 Follow up: Response: No adverse reaction; Pain is decreased ca1 Disposition: 03/23 07:00 Co-signature as Attending Physician, Ken Hernandez MD I agree with the assessment and kdr plan of care. Disposition: 03/22/19 19:18 Discharged to Home. Impression: Migraine. - Condition is Stable. - Discharge Instructions: Migraine Headache. - Medication Reconciliation Form, Thank You Letter, Antibiotic Education, Prescription Opioid Use form. - Follow up: Private Physician; When: 5 - 6 days; Reason: Recheck today's complaints, Continuance of care, Re-evaluation by your physician. - Problem is new. - Symptoms have improved. Signatures: Ken Hernandez MD MD [facility] Reena Villalba RN RN Regino Shelton PA PA jr8 Rory Lee, RN RN rv Shante Calzada RN RN ca1 Corrections: (The following items were deleted from the chart) 03/22 19:25 19:18 03/22/2019 19:18 Discharged to Home. Impression: Migraine. Condition is Stable. ca1 Forms are Medication Reconciliation Form, Thank You Letter, Antibiotic Education, Prescription Opioid Use. Follow up: Private Physician; When: 5 - 6 days; Reason: Recheck today's complaints, Continuance of care, Re-evaluation by your physician. Problem is new. Symptoms have improved. jr8
--- NOTE | 2019-03-22 19:19 | ER ---
Nurse's Notes [facility] Name: Jose Armenta Age: 43 yrs Sex: Female : 1975 Arrival Date: 03/22/2019 Time: 17:18 Bed 30 Private MD: Diagnosis: Migraine Presentation: 03/22 17:23 Presenting complaint: Patient states: i had a migraine yesterday and its getting worse, ss im taking frovatriptan 2.5 mg and it did not help; reports nausea;. Transition of care: patient was not received from another setting of care. Onset of symptoms was March 22, 2019. Risk Assessment: Do you want to hurt yourself or someone else? Patient reports no desire to harm self or others. Initial Sepsis Screen: Does the patient meet any 2 criteria? No. Patient's initial sepsis screen is negative. Does the patient have a suspected source of infection? No. Patient's initial sepsis screen is negative. Care prior to arrival: None. 17:23 Method Of Arrival: Ambulatory ss 17:23 Acuity: SAFIA 3 ss Triage Assessment: 18:00 Headache History: The patient has had previous headaches and this one is similar to ca1 previous episodes. General: Appears in no apparent distress. uncomfortable. General: Appears. General: Behavior is calm, cooperative, appropriate for age. Pain: Also complains of. Pain: Complains of pain in left temporal area and left eye and forehead and scalp and face Also complains of nausea, photophobia. 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 - Social history:: Smoking status: Patient/guardian denies using tobacco. - Ebola Screening: : No symptoms or risks identified at this time. Screenin:59 Abuse screen: Denies threats or abuse. Denies injuries from another. Nutritional ca1 screening: No deficits noted. Tuberculosis screening: No symptoms or risk factors identified. Fall Risk None identified. Assessment: 17:59 General: Appears in no apparent distress. comfortable, Behavior is calm, cooperative, ca1 appropriate for age. Pain: Complains of pain in face and scalp Pain currently is 10 out of 10 on a pain scale. Quality of pain is described as throbbing, Pain began 1 day ago. Is continuous. Neuro: Level of Consciousness is awake, alert, obeys commands, Oriented to person, place, time, situation, Reports blurred vision dizziness, since yesterday headache. Cardiovascular: Heart tones S1 S2 present Capillary refill < 3 seconds Patient's skin is warm and dry. Respiratory: Airway is patent Respiratory effort is even, unlabored, Respiratory pattern is regular, symmetrical, Breath sounds are clear bilaterally. GI: Abdomen is flat, non-distended, Bowel sounds present X 4 quads. Abd is soft and non tender X 4 quads. : No deficits noted. No signs and/or symptoms were reported regarding the genitourinary system. EENT: No deficits noted. No signs and/or symptoms were reported regarding the EENT system. Derm: Skin is intact, is healthy with good turgor, Skin is pink, warm \T\ dry. Musculoskeletal: Circulation, motion, and sensation intact. Capillary refill < 3 seconds. 18:53 Reassessment: Patient appears in no apparent distress at this time. Patient and/or ca1 family updated on plan of care and expected duration. Pain level reassessed. Patient is alert, oriented x 3, equal unlabored respirations, skin warm/dry/pink. 19:15 Reassessment: Patient appears in no apparent distress at this time. Patient is alert, ca1 oriented x 3, equal unlabored respirations, skin warm/dry/pink. Patient states feeling better. Vital Signs: 17:25 BP 128 / 79; Pulse 84; Resp 18; Temp 97.8(TE); Pulse Ox 98% on R/A; Weight 56.7 kg; ss Height 5 ft. 3 in. (160.02 cm); Pain 10/10; 17:59 BP 130 / 78; Pulse 59; Resp 17 S; Temp 97.9(O); Pulse Ox 97% on R/A; ca1 18:53 BP 122 / 71; Pulse 71; Resp 16 S; Temp 98(O); Pulse Ox 95% on R/A; ca1 19:15 BP 109 / 84; Pulse 64; Resp 17 S; Temp 98(O); Pulse Ox 95% on R/A; ca1 17:25 Body Mass Index 22.14 (56.70 kg, 160.02 cm) ED Course: 17:18 Patient arrived in ED. as 17:25 Triage completed. ss 17:26 Arm band placed on right wrist. ss 17:47 Regino Savage PA is PHCP. jr8 17:47 Ken Hernandez MD is Attending Physician. jr8 17:53 Shante Calzada RN is Primary Nurse. ca1 17:59 Patient has correct armband on for positive identification. Placed in gown. Bed in low ca1 position. Call light in reach. Side rails up X 1. Pulse ox on. NIBP on. Warm blanket given. 17:59 Door closed. Noise minimized. Lights dimmed. ca1 18:30 Inserted saline lock: 20 gauge in right antecubital area, using aseptic technique. ca1 ,using aseptic technique. by Rory Lee RN. 18:30 No provider procedures requiring assistance completed. ca1 19:24 IV discontinued, intact, bleeding controlled, No redness/swelling at site. Pressure ca1 dressing applied. Administered Medications: 18:36 Not Given (Physician Discretion): Decadron 0.5 mg PO once jr8 18:38 Drug: Decadron - Dexamethasone 10 mg Route: IVP; Site: right antecubital; ca1 19:15 Follow up: Response: No adverse reaction; Pain is decreased ca1 18:40 Drug: Reglan 10 mg Route: IVP; Site: right antecubital; rv 19:14 Follow up: Response: No adverse reaction; Pain is decreased ca1 18:40 Drug: Benadryl 25 mg Route: IVP; Site: right antecubital; rv 19:15 Follow up: Response: No adverse reaction; Pain is decreased ca1 Outcome: 19:18 Discharge ordered by . jr8 19:24 Discharged to home ambulatory, with significant other. ca1 19:24 Condition: stable 19:24 Discharge instructions given to patient, Instructed on discharge instructions, follow up and referral plans. Demonstrated understanding of instructions, follow-up care. 19:25 Patient left the ED. ca1 Signatures: Soco Daniel Shelby, RN RN Regino Savage PA PA jr8 Rory Lee RN RN rv Shante Calzada RN RN ca1 Corrections: (The following items were deleted from the chart) 17:27 17:25 Pulse 84bpm; Resp 18bpm; Pulse Ox 98% RA; Temp 97.8F Temporal; 56.7 kg; Height 5 ss ft. 3 in.; BMI: 22.1; Pain 10/10; ss 18:55 18:54 Door closed. Noise minimized. Lights dimmed. ca1 ca1
[2019-03-22 19:33] VITALS: TEMP 98; O2SAT 95
[2019-03-22 19:34] VITALS: BP 109/84
== END 2019-03-22 19:25 | disposition home or self-care (01) ==
LOC: ER 17:17
DX: G43.909 Migraine, unspecified, not intractable, without status migrainosus (principal); I45.6 Pre-excitation syndrome
CPT/HCPCS: 96374; 96375; 99284; J1100; J2765

== ENCOUNTER 2019-09-03 10:38 | Emergency (ER) | payer BC ==
[2019-09-03] MEDS ORDERED: ONDANSETRON 4 MG/2 ML VIAL ONE (11:11)
[2019-09-03] MEDS ORDERED: MEPERIDINE HCL 25 MG/0.5 ML ONE (11:11)
[2019-09-03] MEDS ORDERED: LIDOCAINE VISCOUS 2% SOLN 15 ML UDC ONE (11:11)
[2019-09-03] MEDS ORDERED: MAGNE/ALUM HYDROXD 30 ML UCUP ONE (11:11)
[2019-09-03] MEDS ORDERED: FAMOTIDINE 20 MG/2 ML VIAL IV ONE (11:12)
[2019-09-03 11:39] LABS: Absolute Lymphocytes (CBC) 1.8 K/uL (0.7-4.9); Basophils % 0.8 % (0-1.3); Hematocrit 35.4 % (36.0-45.0); Lymphocytes % 43.3 % (15.3-44.8); MPV 8.2 fL (7.6-11.3)
[2019-09-03 12:01] LABS: ALT/SGPT 27 U/L (12-78); AST/SGOT 15 U/L (15-37); Albumin 3.7 g/dL (3.4-5.0); Alkaline Phosphatase 73 U/L (45-117); BUN Blood Urea Nitrogen 13 mg/dL (7-18); Bicarbonate 31 mmol/L (21-32); Bilirubin Direct < 0.1 mg/dL (0-0.2); Bilirubin Total 0.2 mg/dL (0.2-1.0); Glucose Level 84 mg/dL (74-106); Lipase 199 U/L (73-393); Potassium 3.8 mmol/L (3.5-5.1); Protein, Total 7.4 g/dL (6.4-8.2); Sodium Level 142 mmol/L (136-145); Troponin (Emerg Dept Use Only) < 0.02 ng/mL (0.0-0.045)
[2019-09-03 12:09] LABS: Urine Bacteria <20 /HPF (<20); Urine Culture Reflex Order NOT NEEDED; Urine RBC <5 /HPF (NONE SEEN)
--- NOTE | 2019-09-03 12:51 | ER ---
Nurse's Notes [facility] Name: Jose Armenta Age: 43 yrs Sex: Female : 1975 Arrival Date: 09/03/2019 Time: 10:40 Bed 8 Private MD: Citlali Myles C Diagnosis: Upper abdominal pain, unspecified;Gastritis, unspecified, without bleeding Presentation: 09/03 10:48 Presenting complaint: Patient states: Epigastric pain radiates to RUQ x 1 day, "My GI jl7 doctor said it might be pancreatitis." Reports nausea, denies V/D. Transition of care: patient was not received from another setting of care. Onset of symptoms was September 02, 2019. Risk Assessment: Do you want to hurt yourself or someone else? Patient reports no desire to harm self or others. Initial Sepsis Screen: Does the patient meet any 2 criteria? No. Patient's initial sepsis screen is negative. Does the patient have a suspected source of infection? No. Patient's initial sepsis screen is negative. Care prior to arrival: None. 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 - Social history:: Smoking status: Patient/guardian denies using tobacco, Patient uses alcohol, occasionally. last drink Tuesday. - Ebola Screening: : No symptoms or risks identified at this time. - Family history:: not pertinent. - Hospitalizations: : No recent hospitalization is reported. Screenin:00 Abuse screen: Denies threats or abuse. Denies injuries from another. Nutritional sg screening: No deficits noted. Tuberculosis screening: No symptoms or risk factors identified. Never had TB. Fall Risk None identified. Assessment: 10:45 General: Appears in no apparent distress. well groomed, well developed, well nourished, sg Behavior is calm, cooperative, appropriate for age. Pain: Complains of pain in abdomen Quality of pain is described as aching. Neuro: Level of Consciousness is awake, alert, obeys commands, Oriented to person, place, time, situation, Buzzle Buffer are equal bilaterally Moves all extremities. Full function Gait is steady, Speech is normal. Cardiovascular: Capillary refill is brisk in bilateral fingers Patient's skin is warm and dry. Chest pain is denied. Respiratory: Airway is patent Respiratory effort is even, unlabored, Respiratory pattern is regular, symmetrical. GI: Abdomen is round non-distended, Bowel sounds present X 4 quads. Abd is soft and non tender X 4 quads. : No signs and/or symptoms were reported regarding the genitourinary system. EENT: No signs and/or symptoms were reported regarding the EENT system. Derm: Skin is pink, warm \\T\\ dry. Musculoskeletal: Circulation, motion, and sensation intact. Range of motion: intact in all extremities. 11:03 Reassessment: Patient appears in no apparent distress at this time. family at bedside sg at this time. 11:41 Reassessment: pt ambulatory with steady gait to ER restroom with stand by assist for sg urine specimen collection as ordered. 12:40 Reassessment: Patient appears in no apparent distress at this time. Patient and/or sg family updated on plan of care and expected duration. Pain level reassessed. Patient is alert, oriented x 3, equal unlabored respirations, skin warm/dry/pink. Patient states feeling better. Vital Signs: 10:51 BP 110 / 94; Pulse 73; Resp 16 S; Temp 98.1(O); Pulse Ox 100% on R/A; Pain 8/10; jl7 11:53 BP 107 / 74; Pulse 78; Resp 17; Pulse Ox 100% on R/A; mh5 13:00 BP 110 / 77; Pulse 77; Resp 16; Temp 98.1; Pulse Ox 99% on R/A; Pain 8/10; sg ED Course: 10:40 Patient arrived in ED. mr 10:41 Citlali Myles MD is Private Physician. mr 10:50 Triage completed. jl7 10:51 Arm band placed on right wrist. jl7 10:55 Bradly García, ALFONZO is Primary Nurse. sg 10:56 Tico Dolan MD is Attending Physician. rn 11:30 Initial lab(s) drawn, by nd, sent to lab. Inserted saline lock: 22 gauge in left sg antecubital area, using aseptic technique. Blood collected. 11:34 EKG done, by environmental health technician. reviewed by Tico Dolan MD. at1 11:42 Patient has correct armband on for positive identification. Bed in low position. Call sg light in reach. Side rails up X2. Pulse ox on. NIBP on. Warm blanket given. Head of bed elevated. 11:49 Urine Dipstick--Ancillary (enter results) Sent. [facility] 11:49 Urine Microscopic Only Sent. [facility] 11:49 Urine collected: clean catch specimen, clear. [facility] 13:00 No provider procedures requiring assistance completed. IV discontinued, intact, sg bleeding controlled, No redness/swelling at site. Pressure dressing applied. Administered Medications: 11:32 Drug: Zofran 4 mg Route: IVP; Site: left antecubital; sg 12:14 Follow up: Response: No adverse reaction 11:32 Drug: GI Cocktail without - (Maalox Suspension 30 ml, Lidocaine Liquid 2 % 15 sg ml) Route: PO; 12:15 Follow up: Response: No adverse reaction sg 11:32 Drug: Pepcid 20 mg Route: IVP; Site: left antecubital; sg 12:15 Follow up: Response: No adverse reaction; Pain is decreased sg 11:34 Drug: Demerol 25 mg Route: IVP; Site: left antecubital; sg 12:15 Follow up: Response: No adverse reaction; Pain is decreased; RASS: Alert and Calm (0) Outcome: 12:51 Discharge ordered by . rn 13:00 Discharged to home ambulatory, with family. sg 13:00 Condition: good 13:00 Discharge instructions given to patient, Instructed on discharge instructions, follow up and referral plans. medication usage, safety practices, Demonstrated understanding of instructions, follow-up care, medications, Prescriptions given X 2. 13:08 Patient left the ED. ca1 Signatures: Bradly García RN RN sg Chanda Pierson Tico Dolan MD MD rn Gonzales, Amanda, german tutor EKG Tat1 Ashley Daniel 5 Elver Aggarwal RN RN jl7 Acob, Hsante, RN RN ca1
--- NOTE | 2019-09-03 12:51 | EDPHYS ---
Physician Documentation [facility] Name: Jose Armenta Age: 43 yrs Sex: Female : 1975 Arrival Date: 09/03/2019 Time: 10:40 Bed 8 Private MD: Citlali Myles C ED Physician Tico Dolan HPI: 09/03 11:11 This 43 yrs old Female presents to ER via Ambulatory with complaints of rn Abdominal Pain. 11:11 The patient presents with abdominal pain in the epigastric area, in the right upper rn quadrant. 11:11 Onset: The symptoms/episode began/occurred 1 day(s) ago. The symptoms do not radiate. rn Associated signs and symptoms: Pertinent positives: nausea, Pertinent negatives: blood in stools, chest pain, constipation, diarrhea, dysuria, fever, shortness of breath, vomiting, vomiting blood. The symptoms are described as crampy, sharp. Modifying factors: The symptoms are alleviated by nothing, the symptoms are aggravated by touching the area. Severity of pain: At its worst the pain was moderate in the emergency department the pain is unchanged. The patient has experienced a previous episode. REports upper abdominal and RUQ pain for 1 day, states had similar episode in past, no clear etiology. Has had gallbladder and appendix removed in past, no fever, no chest pain/sob. Does not feel like kidney stones she has had in past, no urinary symptoms. Has had hysterectomy. No vomiting/diarrhea/blood in stool. + hx of acid reflux. . 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 - Social history:: Smoking status: Patient/guardian denies using tobacco, Patient uses alcohol, occasionally. last drink Tuesday. - Ebola Screening: : No symptoms or risks identified at this time. - Family history:: not pertinent. - Hospitalizations: : No recent hospitalization is reported. ROS: 11:11 Constitutional: Negative for fever, chills, and weight loss, Eyes: Negative for injury, rn pain, redness, and discharge, Neck: Negative for injury, pain, and swelling, Cardiovascular: Negative for chest pain, palpitations, and edema, Respiratory: Negative for shortness of breath, cough, wheezing, and pleuritic chest pain, Abdomen/GI: Negative for vomiting, diarrhea, and constipation, Back: Negative for injury and pain, : Negative for injury, bleeding, discharge, and swelling, MS/Extremity: Negative for injury and deformity, Skin: Negative for injury, rash, and discoloration, Neuro: Negative for headache, weakness, numbness, tingling, and seizure. Exam: 11:11 Constitutional: This is a well developed, well nourished patient who is awake, alert, rn appears uncomfortable, holding abdomen. Head/Face: Normocephalic, atraumatic. ENT: MMM Cardiovascular: Regular rate and rhythm. No pulse deficits. Respiratory: No increased work of breathing, no retractions or nasal flaring. Abdomen/GI: soft, + mild epigastric and RUQ tenderness, no rebound/peritoneal signs. MS/ Extremity: Pulses equal, no cyanosis. Neurovascular intact. Full, normal range of motion. Equal circumference. Neuro: Awake and alert, GCS 15 12:01 ECG was reviewed by the Attending Physician. rn Vital Signs: 10:51 BP 110 / 94; Pulse 73; Resp 16 S; Temp 98.1(O); Pulse Ox 100% on R/A; Pain 8/10; jl7 11:53 BP 107 / 74; Pulse 78; Resp 17; Pulse Ox 100% on R/A; mh5 13:00 BP 110 / 77; Pulse 77; Resp 16; Temp 98.1; Pulse Ox 99% on R/A; Pain 8/10; sg MDM: 10:56 Patient medically screened. rn 12:49 Differential diagnosis: gastritis, gastroesophageal reflux disease, non-specific abd rn pain, pancreatitis, Peptic Ulcer Disease, Ureterolithiasis, gastritis. Data reviewed: vital signs, nurses notes, lab test result(s), and as a result, I will discharge patient. Counseling: I had a detailed discussion with the patient and/or guardian regarding: the historical points, exam findings, and any diagnostic results supporting the discharge/admit diagnosis, lab results, the need for outpatient follow up, to return to the emergency department if symptoms worsen or persist or if there are any questions or concerns that arise at home. Response to treatment: the patient's symptoms have markedly improved after treatment, and as a result, I will discharge patient. Special discussion: I discussed with the patient/guardian in detail that at this point there is no indication for admission to the hospital. It is understood, however, that if the symptoms persist or worsen the patient needs to return immediately for re-evaluation. Based on the history and exam findings, there is no indication for further emergent testing or inpatient evaluation. I discussed with the patient/guardian the need to see the tacking machine operator for further evaluation of the symptoms. ED course: Neg bloodwork and UA, improved with pain meds and GI cocktail/antacid, recommend f/u with GI and adding prn maalox to her nexium. Return precautions given and understood. . 09/03 11:07 Order name: Basic Metabolic Panel; Complete Time: 12:15 rn 09/03 11:07 Order name: CBC with Diff; Complete Time: 11:45 rn 09/03 11:07 Order name: Hepatic Function; Complete Time: 12:15 rn 09/03 11:07 Order name: Lipase; Complete Time: 12:15 rn 09/03 11:07 Order name: Urine Microscopic Only; Complete Time: 12:15 rn 09/03 11:07 Order name: Troponin (emerg Dept Use Only); Complete Time: 12:15 rn 09/03 11:07 Order name: IV Saline Lock; Complete Time: 11:18 rn 09/03 11:07 Order name: Labs collected and sent; Complete Time: 11:18 rn 09/03 11:07 Order name: EKG; Complete Time: 11:07 rn 09/03 11:46 Order name: Urine Dipstick--Ancillary (enter results); Complete Time: 13:03 bd 09/03 11:07 Order name: Urine Dipstick-Ancillary (obtain specimen); Complete Time: 11:48 rn 09/03 11:07 Order name: EKG - Nurse/Tech; Complete Time: 11:35 rn EC:01 Rate is 64 beats/min. Rhythm is regular. QRS [place] is Normal. [place] interval is normal. QRS rn interval is normal. QT interval is normal. No Q waves. T waves are Normal. No ST changes noted. Clinical impression: Normal ECG. Interpreted by me. Reviewed by me. Administered Medications: 11:32 Drug: Zofran 4 mg Route: IVP; Site: left antecubital; sg 12:14 Follow up: Response: No adverse reaction sg 11:32 Drug: GI Cocktail without - (Maalox Suspension 30 ml, Lidocaine Liquid 2 % 15 sg ml) Route: PO; 12:15 Follow up: Response: No adverse reaction sg 11:32 Drug: Pepcid 20 mg Route: IVP; Site: left antecubital; sg 12:15 Follow up: Response: No adverse reaction; Pain is decreased sg 11:34 Drug: Demerol 25 mg Route: IVP; Site: left antecubital; sg 12:15 Follow up: Response: No adverse reaction; Pain is decreased; RASS: Alert and Calm (0) sg Disposition: 09/03/19 12:51 Discharged to Home. Impression: Upper abdominal pain, unspecified, Gastritis, unspecified, without bleeding. - Condition is Stable. - Discharge Instructions: Abdominal Pain, Adult, Gastritis, Adult. - Prescriptions for Zofran ODT 4 mg Oral tablet,disintegrating - place 1 tablet by TRANSLINGUAL route every 8 hours As needed; 20 tablet. Tylenol- Codeine #3 300-30 mg Oral Tablet - take 1 tablet by ORAL route every 6 hours As needed; 15 tablet. - Work release form, Medication Reconciliation Form, Thank You Letter, Antibiotic Education, Prescription Opioid Use form. - Follow up: Private Physician; When: As needed; Reason: Recheck today's complaints, Re-evaluation by your physician. - Problem is new. - Symptoms have improved. Signatures: Dispatcher [employer] EDMS Bradly García RN RN sg Tico Dolan MD MD rn Leal, Jahala, RN RN jl7 Shante Calzada RN RN ca1 Corrections: (The following items were deleted from the chart) 13:08 12:51 09/03/2019 12:51 Discharged to Home. Impression: Upper abdominal pain, ca1 unspecified; Gastritis, unspecified, without bleeding. Condition is Stable. Forms are Medication Reconciliation Form, Thank You Letter, Antibiotic Education, Prescription Opioid Use. Follow up: Private Physician; When: As needed; Reason: Recheck today's complaints, Re-evaluation by your physician. Problem is new. Symptoms have improved. rn
[2019-09-03 13:00] LABS: Urine Blood NEGATIVE (NEG); Urine Glucose NEGATIVE (NEG); Urine Protein NEGATIVE (NEG)
[2019-09-03 13:28] VITALS: TEMP 98.1; O2SAT 100
[2019-09-03 13:35] VITALS: BP 107/74
--- NOTE | 2019-09-03 15:14 | EKG ---
Test Date: 2019-09-03 Test Time: 11:18:00 Care Transitions Manager: SHIRA MEASUREMENT RESULTS: Intervals: Rate: 64 NM: 142 QRSD: 82 QT: 384 QTc: 396 [place]: P: 39 NM: 142 QRS: 81 T: 54 INTERPRETIVE STATEMENTS: Normal sinus rhythm Normal ECG Compared to ECG 07/21/2018 09:40:59 Sinus bradycardia no longer present Electronically Signed On 09-03-19 15:13:42 CDT by Hugo Clements
== END 2019-09-03 13:08 | disposition home or self-care (01) ==
LOC: ER 10:38
DX: K29.70 Gastritis, unspecified, without bleeding (principal); I45.6 Pre-excitation syndrome
CPT/HCPCS: 93005; 85025; 80048; 36415; 80076; 84484; 83690; 96375; 96374; 99284; J2175; J2405; 81003; 81015

== ENCOUNTER 2020-04-02 10:03 | Emergency (ER) | payer BC ==
[2020-04-02 11:08] LABS: Absolute Lymphocytes (CBC) 1.8 K/uL (0.7-4.9); Hematocrit 36.3 % (36.0-45.0); MPV 8.6 fL (7.6-11.3); RBC Red Blood Cell Count 4.07 M/uL (3.86-4.86)
[2020-04-02 11:08] LABS: Urine Blood NEGATIVE (NEG); Urine Glucose NEGATIVE (NEG); Urine Protein NEGATIVE (NEG); Urine Specific Gravity 1.025 (1.005-1.030); Urine pH 7.5 (5.0-7.0)
[2020-04-02] MEDS ORDERED: ONDANSETRON 4 MG/2 ML VIAL ONE ×2 (11:09→13:06)
[2020-04-02] MEDS ORDERED: MORPHINE 4 MG/ML SYR ONE (11:09)
--- NOTE | 2020-04-02 11:10 | RAD REPORT ---
EXAM DESCRIPTION: CT - Stone Protocol - 04/02/2020 10:53 am CLINICAL HISTORY: Flank pain. FLANK PAIN COMPARISON: Stone Protocol dated 07/19/2018 TECHNIQUE: Axial images were obtained without oral or IV contrast. Lack of contrast limits solid org an and vascular assessment. The [id number] spans the entirety of the system partially obscuring uppermost abdomen and lung bases. Coronal reformatted images were obtained and reviewed. All CT scans are performed using dose optimization technique as appropriate and may include automated exposure control or mA/KV adjustment according to patient size. FINDINGS: The lower lung franc[place] are clear. Cholecystectomy clips. Imaged portions of the liver and spleen show no suspicious findings on non-contrast imaging. The panc reas and adrenal glands are normal. No pathologic lymphadenopathy in the abdomen or pelvis. No urinary tract stones or obstructive uropathy. No bowel obstruction, free air, free fluid or abscess. Appendectomy. Fusion is present L5-S1. IMPRESSION: No urinary tract stones or obstructive uropathy.
[2020-04-02 11:22] LABS: Potassium 3.6 mmol/L (3.5-5.1)
--- OUTSIDE RECORDS SUMMARY | 2020-04-02 11:22 | XMS REPORT | Clinical Summary ---
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
--- OUTSIDE RECORDS SUMMARY | 2020-04-02 11:23 | XMS REPORT | Continuity of Care Document ---
:1975 Author Organization [employer]now [employer]) Care Team Providers Name Role Phone Bevy Unavailable Un available Problems Problem Status Onset Classification Date Comments Sourc e Date Reported MIGRAINE Active Condition 05/15/2015 Medica l HEADACHE 5 Group ROUTINE GENERAL Active Condition 05/15/2015 Medical MEDICAL 4 Group [email or web address] [email or web address] HEADACHE Inactive Condition 05/15/2015 Medica l 4 Group ANXIETY STATE, Active Condition 05/15/2015 M edical UNSPECIFIED Group Medications Medication Details Route Status Patient Ordering Order Source Instructions Provider Date CLIMARA 0.05 one patch Active MH MG/24HR PTWK weekly. 015 Medical Group AMITRIPTYLINE one hs Active HCL 10 MG TABS 015 Medical Group ASCOMP-CODEINE one bid Active 60-050-13-30 MG prn 014 Medical CAPS headaches. Group XANAX 0.25 MG 1 tablet Active MH TABS daily at 013 Medical bedtime as Group needed Allergies, Adverse Reactions, Alerts Substance Category Reaction Severity Reaction Status Date Comments S ource type Reported PCN Drug PCN allergy Medical Group CODEINE Drug CODEINE allergy Medical Group Immunizations No Data Provided for This Section Results Order Name Results Value Reference Date Interpretation Comments Diana rce Range Chemistry CHOLESTEROL 185 - 199 2014 Medical Group Chemistry TRIGLYCERIDE 92 - 149 2014 Medical Group Chemistry HDL 61 >=61 2014 Medical Group Chemistry LDL 106 - 99 2014 Medical Group Chemistry SODIUM 140 135 - 145 MEQ/L 2014 Medical Group Chemistry POTASSIUM 4.7 3.5 - 5.1 MEQ/L 2014 Medical Group Chemistry CREATININE 0.7 0.5 - 1.4 2014 Medical Group Chemistry BUN 14 7 - 22 2014 Medical Group Chemistry BUN/CREAT 20 6 - 25 2014 Medical Group Chemistry ALBUMIN 4.2 3.5 - 5.0 2014 Medical Group Chemistry CALCIUM 9.5 8.5 - 10.5 2014 Medical Group Chemistry SGPT (ALT) 23 0 - 65 2014 Medical Group Chemistry SGOT (AST) 15 0 - 37 2014 Medical Group Chemistry ALK PHOS 58 39 - 136 2014 Medical Group Chemistry TSH 2.040 0.360 - 3.740 2014 Medical Group Hematology HGB 12.8 12.0 - 16.0 2014 Medical Group Hematology HCT 39.3 36.0 - 48.0 2014 Medical Group Hematology PLATELETS 291 133 - 450 [facility] 2014 Medical Group Chemistry CHOLESTEROL 235 - 199 2013 Medical Group Chemistry TRIGLYCERIDE 146 - 149 2013 Medical Group Chemistry HDL 64 >=61 2013 Medical Group Chemistry LDL 142 - 99 2013 Medical Group Chemistry SODIUM 139 135 - 145 MEQ/L 2013 Medical Group Chemistry POTASSIUM 3.8 3.5 - 5.1 MEQ/L 2013 Medical Group Chemistry CREATININE 0.7 0.5 - 1.4 2013 Medical Group Chemistry BUN 14 7 - 22 2013 Medical Group Chemistry BUN/CREAT 20 6 - 25 2013 Medical Group Chemistry ALBUMIN 4.4 3.5 - 5.0 2013 Medical Group Chemistry CALCIUM 9.8 8.5 - 10.5 2013 Medical Group Chemistry SGPT (ALT) 26 0 - 65 2013 Medical Group Chemistry SGOT (AST) 17 0 - 37 2013 Medical Group Chemistry ALK PHOS 67 39 - 136 2013 Medical Group Chemistry TSH 2.440 0.360 - 3.740 2013 Medical Group Hematology HGB 13.0 12.0 - 16.0 2013 Medical Group Hematology HCT 39.7 36.0 - 48.0 2013 Medical Group Hematology PLATELETS 233 133 - 450 [facility] 2014 Medical Group Pathology Reports No Data Provided for This Section Diagnostic Reports No Data Provided for This Section Consultation Notes No Data Provided for This Section Discharge Summaries No Data Provided for This Section History and Physicals No Data Provided for This Section Vital Signs Vital Sign Value Date Comments Source Weight 148 05/15/2015 Medical Grou p Temperature Oral (F) 98.1 F 05/15/2015 Medi barrett Group Heart Rate 70 05/15/2015 Medical Grou p Systolic (mm Hg) 111 05/15/2015 Medical Group Diastolic (mm Hg) 74 05/15/2015 Medical Group Height 63.5 11/23/2013 Medical Grou p Weight 145 11/23/2013 Medical Grou p Heart Rate 58 11/23/2013 Medical Grou p Temperature Oral (F) 97.4 F 11/23/2013 Medi [facility] Group Systolic (mm Hg) 160 11/23/2013 Medical Group Diastolic (mm Hg) 78 11/23/2013 Medical Group Encounters Location Location Encounter Encounter Reason Attending ADM DC Stat us Source Details Type Number For Provider Date Date Visit [facility] Lab Report [id number] Bear 05/15 05/15 [facility] 0 [facility] MD [facility] Group [facility] Office [id number] Bear 05/15 05/15 [place] Visit 0 [facility] MD [facility] Group [facility] Procedures Procedure Code Date Perfomer Comments Source colonoscopy [id number] 03/05/2008 [facility] Assessment and Plan No Data Provided for This Section Plan of Care No Data Provided for This Section Social History No Data Provided for This Section Family History No Data Provided for This Section Advance Directives No Data Provided for This Section Functional Status No Data Provided for This Section
--- OUTSIDE RECORDS SUMMARY | 2020-04-02 11:23 | XMS REPORT | Continuity of Care Document ---
:1975 Author Organization [facility] up Care Team Providers Name Role Phone MD Stefany, Bear Unavailable Unavailable Insurance Providers Payer name Policy type / Coverage Policy ID Covered green party ID P olicy Maza type AET[employer] - NAP - CHOICE (POS II) AET[employer] - NAP - CHOICE (POS II) Encounters Encounter Performer Location Date Lab Report Bear Mccall MD [facility] May 15, 2015 Allergies, Adverse Reactions, Alerts [...] as April 11, 2013 Active needed ASCOMP-CODEINE 45-329-06-30 MG one bid prn headaches. Nov 23 14 Active CAPS CLIMARA 0.05 MG/24HR PTWK one patch weekly. May 15, 2015 Acti ve AMITRIPTYLINE HCL 10 MG TABS one hs May 15, 2015 Act lamonte Vital Signs Date Description Test Result Nov [...] Date Description Test Name Value Reference Interpretation Sta tus Nov 23, hemoglobin, blood HGB 13.0 g/dL 12.0-16.0 2013Nov 23, hematocrit, blood HCT 39.7 % 36.0-48.0 2013Nov 23, platelet count PLATELETS 233 K/CMM 554-777 9727 /mm3 May 15, hemoglobin, blood HGB 12.8 g/dL 12.0-16.0 2014May 15, hematocrit, blood HCT 39.3 % 36.0-48.0 2014May 15, platelet count PLATELETS 291 K/CMM [phone] /mm3 Nov 23, cholesterol, serum CHOLESTEROL 235 mg/dl <=199 High 2013Nov 23, triglyceride, serum, TRIGLYCERIDE 146 mg/dl <=149 2013Nov 23, HDL cholesterol, HDL 64 mg/dl >=61 2013Nov 23, LDL cholesterol, LDL 142 mg/dl <=99 High 2013Nov 23, sodium, serum SODIUM 139 MEQ/L [phone] mmol/L Nov 23, potassium, serum POTASSIUM 3.8 MEQ/L 3.5-5.1 2013 mmol/L Nov 23, creatinine, serum CREATININE 0.7 mg/dL 0.5-1.4 2013Nov 23, urea nitrogen, blood BUN 14 mg/dL 7-22 2013Nov 23, urea BUN/CREAT 20 null 6-25 2013 nitrogen/creatinine ratio, serum Nov 23, albumin, serum ALBUMIN 4.4 g/dL 3.5-5.0 2013Nov 23, calcium, serum CALCIUM 9.8 mg/dL 8.5-10.5 2013Nov 23, alanine SGPT (ALT) 26 U/L 0-65 2013 aminotransferase (SGPT), serum Nov 23, aspartate SGOT (AST) 17 U/L 0-37 2013 aminotransferase (SGOT), serum Nov 23, alkaline ALK PHOS 67 U/L 39-136 2013 phosphatase, serum Nov 23, thyroid stimulating TSH 2.440 0.360-3.740 2013 hormone, serum uIU/mL May 15, cholesterol, serum CHOLESTEROL 185 mg/dl <=199 2014May 15, triglyceride, serum, TRIGLYCERIDE 92 mg/dl <=149 2014May 15, HDL cholesterol, HDL 61 mg/dl >=61 2014 serum May 15, LDL cholesterol, LDL 106 mg/dl <=99 High 2015 serum May 15, sodium, serum SODIUM 140 MEQ/L [phone] mmol/L May 15, potassium, serum POTASSIUM 4.7 [...]
--- OUTSIDE RECORDS SUMMARY | 2020-04-02 11:23 | XMS REPORT | Continuity of Care Document ---
:1975 Author Organization [facility] up Care Team Providers Name Role Phone MD Stefany, Bear Unavailable Unavailable Insurance Providers Payer name Policy type / Coverage Policy ID Covered alliance party ID P olicy Maza type AETNA - NAP - CHOICE (POS II) AETNA - NAP - CHOICE (POS II) Encounters Encounter Performer Location Date Office Visit Bear Mccall MD [facility] May 15, 2015 Allergies, Adverse Reactions, Alerts [...] as April 11, 2013 Active needed ASCOMP-CODEINE 10-426-56-30 MG one bid prn headaches. Nov 23 [...] 2013Nov 23, platelet count PLATELETS 233 K/CMM [phone] /mm3 May 15, hemoglobin, blood HGB 12.8 g/dL 12.0-16.0 2014May 15, hematocrit, blood HCT 39.3 % 36.0-48.0 2014May 15, platelet count PLATELETS 291 K/CMM 381-144 5761 /mm3 Nov 23, cholesterol, serum CHOLESTEROL 235 mg/dl <=199 High 2013Nov 23, triglyceride, serum, TRIGLYCERIDE 146 mg/dl <=149 2013Nov 23, HDL cholesterol, HDL 64 mg/dl >=61 2013Nov 23, LDL cholesterol, LDL 142 mg/dl <=99 High 2013Nov 23, sodium, serum SODIUM 139 MEQ/L [phone] mmol/L Nov 23, potassium, serum POTASSIUM 3.8 [...] May 15, sodium, serum SODIUM 140 MEQ/L [phone] mmol/L May 15, potassium, serum POTASSIUM 4.7 [...]
--- OUTSIDE RECORDS SUMMARY | 2020-04-02 11:24 | XMS REPORT | Summary of Care ---
:1975 Author Organization [facility] Address [address] [place] [id number] Care Team Providers Name Role Phone Jennifer Travis Primary Care Provider Reason for Visit Reason Comments Fever Fatigue Cough Dry cough Encounter Details Date Type Department Care Team Description 01/31/2020 Office Visit [facility] Family Padmini Travis PA [address] [place] [address] [place] [address] Acute URI (Primary Dx); [place] [id number], Acute Care Clinic [facility] [place] [address] Allergies No Known Allergiesdocumented as of this encounter (statuses as of 02/01/2020) Medications Medication Sig Dispensed Refills Start Date End Date Status DULoxetine 60 mg 0 01/08/2020 Ac tive capsule estradiol 1 mg tablet 0 01/06/2020 Active pantoprazole 40 mg EC 0 01/13/2020 Active tablet benzonatate (TESSALON Take 1 capsule 30 capsule 0 01/31/2020 0 02/10/2020 Active PERLES) 100 mg by mouth 3 capsuleIndications: (three) times Cough, Acute URI daily for 10 days. fluticasone Use 2 Sprays in 16 g 0 01/31/2020 A ctive propionate 50 each nostril mcg/actuation nasal daily. sprayIndications: Cough, Acute URI documented as of this encounter (statuses as of 02/01/2020) Active Problems No known active problemsdocumented as of this encounter (statuses as of 02/01/2020) Social History Tobacco Use Types Packs/Day Years Used Date Never Smoker Smokeless Tobacco: Never Used Alcohol Use Drinks/Week oz/Week Comments Not Currently Sex Assigned at Date Recorded Not on file Job Start Date Occupation Industry Not on file Not on file Not on file Travel History Travel Start Travel End No recent travel history available. documented as of this encounter Last Filed Vital Signs Vital Sign Reading Time Taken Comments Blood Pressure 114/74 01/31/2020 2:26 PM CDT Pulse 64 01/31/2020 3:30 PM CDT Temperature 36.8 C (98.3 F) 01/31/2020 2:26 PM CDT Respiratory Rate - - Oxygen Saturation 99% 01/31/2020 3:30 PM CDT Inhaled Oxygen Concentration - - Weight 63.5 kg (140 lb) 01/31/2020 2:26 PM CDT Height 160 cm (5' 3") 01/31/2020 2:26 PM CDT Body Mass Index 24.8 01/31/2020 2:26 PM CDT documented in this encounter Progress Notes Jennifer Travis PA - 01/31/2020 2:20 PM CDT Cc: Chief Complaint Patient presents with Fever Fatigue Cough Dry cough Jose Armenta is a 44 year old female. Patient who's PCP is Dr. Myles in [place] here with reports of URI symptoms x 3 days. Sick contacts: coworkers, unsure what they have. Daughter went to [place], not symptomatic. No known COVID19 contact. No recent travel. Patient reports that occasionally when she feels like she needs to take a deep breath her chest feels tight. Sporadic. None now. Not exertional. Last occurrence was this morning while lying down. No associated shortness of breath, dyspnea, hemoptysis, palpitations, dizziness, syncope, n/v, diaphoresis, LUE pain. No calf pain, swelling, tenderness. No wheezing. URI Presenting symptoms: congestion, cough (nonproductive), ear pain (R ear), fatigue and fever (occasional) Presenting symptoms: no facial pain, no rhinorrhea and no sore throat Chronicity: New Worsened by: Nothing Ineffective treatments: nitequil. Associated symptoms: sneezing Associated symptoms: no arthralgias, no headaches, no myalgias, no neck pain, no sinus pain, no swollen glands and no wheezing Risk factors: not elderly, no chronic cardiac disease, no chronic kidney disease, no chronic respiratory disease, no diabetes mellitus, no immunosuppression, no recent illness, no recent travel and no sick contacts Allergies Jose has No Known Allergies. Medications Outpatient Medications Prior to Visit Medication Sig Dispense Refill DULoxetine 60 mg capsule estradiol 1 mg tablet pantoprazole 40 mg EC tablet No facility-administered medications prior to visit. 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 Social History Socioeconomic History Marital status: Spouse name: Not on file Number of children: Not on file Years of education: Not on file Highest education level: Not on file Occupational History Not on file Social Needs Financial resource strain: Not on file Food insecurity: Worry: Not on file Inability: Not on file Transportation needs: Medical: Not on file Non-medical: Not on file Tobacco Use Smoking status: Never Smoker Smokeless tobacco: Never Used Substance and Sexual Activity Alcohol use: Not Currently Drug use: Not on file Sexual activity: Not on file Lifestyle Physical activity: Days per week: Not on file Minutes per session: Not on file Stress: Not on file Relationships Social connections: Talks on phone: Not on file Gets together: Not on file Attends mormonism service: Not on file Active member of club or organization: Not on file Attends meetings of clubs or organizations: Not on file Relationship status: Not on file Intimate partner violence: Fear of current or ex partner: Not on file Emotionally abused: Not on file Physically abused: Not on file Forced sexual activity: Not on file Other Topics Concern Not on file Social History Narrative Lives at home with . Family History Problem Relation Age of Onset No Significant Medical Problems Mother COPD (chronic obstructive pulmonary disease) Father Review of Systems Constitutional: Positive for fatigue and fever (occasional). Negative for activity change, appetite change, chills, diaphoresis and unexpected weight change. HENT: Positive for congestion, ear pain (R ear) and sneezing. Negative for facial swelling, postnasal drip, rhinorrhea, sinus pressure, sinus pain, sore throat, trouble swallowing and voice change. Eyes: Negative for pain, discharge, redness and itching. Respiratory: Positive for cough (nonproductive) and chest tightness (occasionally when she feels sheneeds to take deep breath. none now). Negative for apnea, choking, shortness of breath, wheezing andstridor. Cardiovascular: Negative for chest pain, palpitations and leg swelling. Gastrointestinal: Negative for abdominal pain, constipation, diarrhea, nausea and vomiting. Genitourinary: Negative for bladder incontinence, dysuria, urgency, frequency and hematuria. Musculoskeletal: Negative for arthralgias, back pain, myalgias, neck pain and neck stiffness. Neurological: Negative for dizziness, syncope, weakness, light-headedness, numbness and headaches. Vital Signs BP 114/74 | Pulse 63 | Temp 36.8 C (98.3 F) (Oral) | Ht 5' 3" (1.6 m) | Wt 140 lb (63.5 kg)| SpO2 94% | BMI 24.80 kg/m BP 114/74 | Pulse 64 | Temp 36.8 C (98.3 F) (Oral) | Ht 5' 3" (1.6 m) | Wt 140 lb (63.5 kg)| SpO2 99% | BMI 24.80 kg/m Physical Exam Constitutional: She is oriented to person, place, and time. She appears well- developed and well-nourished. No distress. HENT: Head: Normocephalic and atraumatic. Right Ear: Tympanic membrane, external ear and ear canal normal. Left Ear: Tympanic membrane, external ear and ear canal normal. Nose: Mucosal edema present. No rhinorrhea. Mouth/Throat: Uvula is midline, oropharynx is clear and moist and mucous membranes are normal. No oropharyngeal exudate, posterior oropharyngeal edema, posterior oropharyngeal erythema or tonsillar abscesses. Tonsils are 0 on the right. Tonsils are 0 on the left. No tonsillar exudate. + clear post nasal drip Eyes: Conjunctivae are normal. Neck: Normal range of motion. Neck supple. Cardiovascular: Normal rate, regular rhythm and normal heart sounds. Pulmonary/Chest: Effort normal and breath sounds normal. No stridor. No respiratory distress. She has no wheezes. She has no rales. She exhibits no tenderness. Abdominal: Soft. Bowel sounds are normal. She exhibits no distension. There is no tenderness. There is no rebound and no guarding. Musculoskeletal: Normal range of motion. She exhibits no edema. No calf swelling, tenderness, warmth Lymphadenopathy: She has no cervical adenopathy. Neurological: She is alert and oriented to person, place, and time. Skin: Skin is warm and dry. No rash noted. She is not diaphoretic. Psychiatric: She has a normal mood and affect. Her behavior is normal. Nursing note and vitals reviewed. Assessment/Plan Acute URI (primary encounter diagnosis) Cough Plan: POCT FLU A AND B (MOLECULAR), CORONAVIRUS COVID-19 TESTING, CORONAVIRUS COVID-19 TESTING, benzonatate (TESSALON PERLES) 100 mg capsule, fluticasone propionate 50 mcg/actuation nasal spray Afebrile, well appearing, HR < 100, lungs CTAB. Monitored O2 sat the entire exam and 98-99%. Breathing well without difficulty. NAD. Lungs CTAB. No rales. Negative flu testing. Will get COVID testing for further evaluation. Educated on the following at home care: -take tessalon as needed for cough. Do not combine with otc cough medicine (nitequil) -take flonase: 1-2 sprays in each nostril daily -Increase water intake, min 64 oz daily -Take over the counter vitamin C -Take Tylenol as needed, avoid nsaids -REST -Wash hands often -Cover mouth when coughing, wear mask -Quarantine until your COVID results are back -Stay in your own bedroom and use a separate bathroom -Keep at least 6 feet from you and others -Avoid sharing personal household items, dishes, glasses, cups, towels -Clean high traffic/touch areas daily. These include but not limited to: doorknobs, refrigerator/cabinet handles, phones, keyboards, tablets, light switches. -Monitor your symptoms. Take your temperature 2 times daily. -Monitor your symptoms. Go to the ED if worsening symptoms: chest pain, difficulty breathing, coughing up blood, weakness, dizziness, passing out. Patient provided with information paper on COVID19 Pt ed/precautions given in detail regarding conditions/medicaitons. Er precautions given. Pt reportsunderstanding and agrees. rtc if s/s worsen or do not improve; Follow-up with PCP as needed, if no improvement Plan of care, desired health behaviors, goals, Ddx, & any prescribed or OTC medications discussed with patient. Education resources & self management tools provided and reviewed with AVS. Patient/guardian/family verbalized understanding & agrees to plan of care. Barriers to care: NONE Ability to manage care: Good This visit did not involve counseling and coordination that comprised more than 50% of the visit time. documented in this encounter Plan of Treatment Name Type Priority Associated Diagnoses Date/Ti me CORONAVIRUS COVID-19 LAB Routine Cough 01/31/2020 2:48 PM CDT TESTING Acute URI Name Type Priority Associated Diagnoses Order S chedule CORONAVIRUS COVID-19 LAB Routine Cough Expected: 01/31/2020, TESTING Acute URI Expires: 2020 Health Maintenance Due Date Last Done Comments DTaP,Tdap,and Td Vaccines (1 - 1985 Tdap) PAP SMEAR 1995 Breast Cancer Screening 2014 (MAMMOGRAM) INFLUENZA VACCINE (#1) 2019 PNEUMOCOCCAL 0-64 YEARS COMBINED Aged Out No longer eligible based on SERIES patient's age to complete this topic documented as of this encounter Procedures Procedure Name Priority Date/Time Associated Diagnosis Comme nts POCT FLU A AND B Routine 01/31/2020 Cough Results for this (MOLECULAR) Acute URI procedure are i n the results section . documented in this encounter Results POCT FLU A AND B (MOLECULAR) (01/31/2020) Pathologist Sig nature POCT INFLUENZA A negative Negative - Negative POCT INFLUENZA B negative Negative - Negative Specimen Swab documented in this encounter Visit Diagnoses Diagnosis Acute URI - Primary Acute upper respiratory infections of un specified site Cough documented in this encounter Insurance Payer Benefit Plan Subscriber ID Effective Dates Phone Address Type / Group [facility] [id number] 2017-Shantelle [phone] [address] PPO/POS [place] - OUT OF t [id number] [place] [address] [address] [place] (Home) [place] [id number] documented as of this encounter
--- OUTSIDE RECORDS SUMMARY | 2020-04-02 11:24 | XMS REPORT ---
:1975 Author Organization [facility] t Address [address] [place] [address] Dr. Szym[address] [place] [address] Care Team Providers Name Role Phone Asked, Pcp Primary Care Physician Unavailable Pob1, Care Clinic Attending Clinician Unavailable Citlali Castellon Attending Clinician Doctor Unassigned, Name Attending Clinician Unavailable Payers Payer Name Policy Type Policy Number Effective Date Expiration Date S ource Problems Condition Condition Condition Status Onset Resolution Last Treating Co mments Source Name Details Category Date Date Treatment Clinician Date DDD DDD Disease Active [place] (degenerat (degenerat 8-04 Me thodi lamonte disc lamonte disc 00:00: st disease), disease), 00 lumbar lumbar Lumbar Lumbar Disease Active [place] radiculopa radiculopa 7-07 Me thodi thy, thy, 00:00: st chronic chronic 00 Chronic Chronic Disease Active [place] right-side right-side 707 Me thodi d low back d low back 00:00: st pain with pain with 00 right-side right-side d sciatica d sciatica Allergies, Adverse Reactions, Alerts Allergy Allergy Status Severity Reaction(s) Onset Inactive Treating Comm ents Source Name Type Date Date Clinician No Known DA Active U [facility] 2[facility]21 [place] Allergie 00:00: d s [address] [place] [address] Center Codeine Propensi Active Drasco ty to Methodi adverse st reaction s to drug Penicill Propensi Active [place] n ins ty to Methodi adverse st reaction s to drug Family History Family Member Diagnosis Comments Start Date Stop Date Source Natural father No Known Problems Sharonamina Galarza Natural mother Osteoporosis Melo Michell Social History Social Habit Start Date Stop Date Quantity Comments Source Sex Assigned At [facility] ethodist Alcohol Comment 2017-05-20 2017-05-20 two to three Kameron Galarza 00:00:00 00:00:00 times per month Smoking Status Start Date Stop Date Source Never smoker Melo Ofelia t Medications This patient has no known medications. Procedures This patient has no known procedures. Plan of Care Planned Activity Planned Date Details Comments Source Future Scheduled 2020-06-14 INFLUENZA VACCINE Tana Galarza Test 00:00:00 [code = INFLUENZA VACCINE] Future Scheduled 1995 Screening for [facility] thodist Test 00:00:00 malignant neoplasm of cervix (procedure) [code = 733008807] Encounters Start End Encounter Admission Attending Care Care Encounter Source Date/Time Date/Time Type Type Clinicians Facility Department ID 2020-01-31 2020-02-06 Office Pob1, Acute [facility] [id number] 14:19:48 09:07:25 Visit Care Clinic Health [id number] [place] [id number] Professio [phone] [place] [address] [address] 2020-02-06 2020-02-06 Telephone [facility] [id number] 00:00:00 00:00:00 Jennifer A Health [id number] [place] [id number] Professio [phone] [place] [address] [address] 2020-02-05 2020-02-05 Telephone [facility] [id number] 00:00:00 00:00:00 Jennifer A Health [id number] [place] [id number] Professio [phone] [place] [address] [address] 2020-01-31 2020-01-31 Orders Doctor THOMAS [id number] 00:00:00 00:00:00 Only Unassigned, [place] [id number] [place] [facility] [phone] [id number] Results This patient has no known results.
--- OUTSIDE RECORDS SUMMARY | 2020-04-02 11:24 | XMS REPORT | Summary of Care ---
:1975 Author Organization [facility] - Health Address [address] [place] [address] Care Team Providers Name Role Phone Jennifer Travis Primary Care Provider Encounter Details Date Type Department Care Team Description 01/31/2020 Letter (Out) [facility] MyChart Message s Doctor Unassigned, No 301 [facility] [place] [address] 301 REPLACED BY [facility] [phone] [place] [address] Allergies Not on Filedocumented as of this encounter (statuses as of 01/31/2020) Medications Not on filedocumented as of this encounter (statuses as of 01/31/2020) Active Problems Not on filedocumented as of this encounter (statuses as of 01/31/2020) Social History Tobacco Use Types Packs/Day Years Used Date Never Assessed Sex Assigned at Date Recorded Not on file Job Start Date Occupation Industry Not on file Not on file Not on file Travel History Travel Start Travel End No recent travel history available. documented as of this encounter Last Filed Vital Signs Not on filedocumented in this encounter Plan of Treatment Health Maintenance Due Date Last Done Comments DTaP,Tdap,and Td Vaccines (1 - 1985 Tdap) PAP SMEAR 1995 Breast Cancer Screening 2014 (MAMMOGRAM) INFLUENZA VACCINE (#1) 2019 PNEUMOCOCCAL 0-64 YEARS COMBINED Aged Out No longer eligible based on SERIES patient's age to complete this topic documented as of this encounter Results Not on filedocumented in this encounter Insurance Payer Benefit Plan Subscriber ID Effective Dates Phone Address Type / Group [facility] [id number] 2017-Shantelle [phone] [address] PPO/POS [place] - OUT OF t 87 [id number] [place] [address] documented as of this encounter
--- OUTSIDE RECORDS SUMMARY | 2020-04-02 11:24 | XMS REPORT | Summary of Care ---
:1975 Author Organization [facility] - [facility] Address [address] [place] [address] Care Team Providers Name Role Phone Jennifer Travis Primary Care Provider Reason for Visit Reason Comments Fever Fatigue Cough Dry cough Encounter Details Date Type Department Care Team Description 01/31/2020 Office Visit [facility] Family Padmini Travis PA [address] [place] [address] [place] [address] Acute URI (Primary Dx); [place] [address], Acute Care Clinic Cough [facility] [place] [address] Allergies No Known Allergiesdocumented as [...] Patient who's PCP is Dr. Myles in [place] here with reports of URI symptoms x 3 days. Sick contacts: coworkers, unsure what they have. Daughter went to [place], not symptomatic. No known COVID19 contact. No [...] file Gets together: Not on file Attends jehovah's witness service: Not on file Active member of [...] Effective Dates Phone Address Type / Group [facility] [place] [facility] [id number] 2017-Shantelle [phone] [address] PPO/POS [place] - OUT OF t 87 [id number] [place] [address] [address] [place] (Home) [place] [address] documented as of this encounter
--- OUTSIDE RECORDS SUMMARY | 2020-04-02 11:25 | XMS REPORT | Summary of Care ---
:1975 Author Organization [facility] Address [address] [place] [address] Care Team Providers Name Role Phone Jennifer Travis Primary Care Provider Reason for Visit Reason Comments Results Encounter Details Date Type Department Care Team Description 02/05/2020 Telephone [facility] Family Medicine Jennifer Funes PA Results - [place] [address] [place] [address] [place] [address] [phone] Allergies No Known Allergiesdocumented as of this encounter (statuses as of 02/06/2020) Medications Medication Sig Dispensed Refills Start Date [...] as of this encounter (statuses as of 02/06/2020) Active Problems No known active problemsdocumented as of this encounter (statuses as of 02/06/2020) Social History Tobacco Use Types Packs/Day Years [...] Phone Address Type / Group [place] [employer] [place] [id number] 2017-Shantelle [phone] [address] PPO/POS [place] - OUT OF t 87 [id number] [place] [address] documented as of this encounter
--- OUTSIDE RECORDS SUMMARY | 2020-04-02 11:25 | XMS REPORT | Summary of Care ---
:1975 Author Organization [facility] - [facility] Address [address] [place] [address] Care Team Providers Name Role Phone Jennifer Travis Primary Care Provider Reason for Visit Reason Comments Notification Encounter Details Date Type Department Care Team Description 02/06/2020 Telephone [facility] Family Medicine Jennifer Funes PA Notification - [address] [address] [place] [address] [phone] Allergies No Known Allergiesdocumented as of this [...] Type / Group [place] [place] [id number] 2017-Shantelle [phone] [address] PPO/POS [place] - OUT OF t 87 [id number] [place] [address] documented as of this encounter
--- OUTSIDE RECORDS SUMMARY | 2020-04-02 11:25 | XMS REPORT | Summary of Care ---
:1975 Author Organization [facility] - Health Address [address] [place] [address] Care Team Providers Name Role Phone Jennifer Travis Primary Care Provider Encounter Details Date Type Department Care Team Description 01/31/2020 Orders Only [facility] Doctor Unassigned, No 301 [facility] [place] [address] [address] [place] [address] Allergies No Known Allergiesdocumented as of this [...] Name Priority Date/Time Associated Diagnosis Comme nts CONSENT/REFUSAL FOR Routine 01/31/2020 12:01 AM CDT DIAGNOSIS AND TREATMENT documented in this encounter Results Not on filedocumented in this encounter Insurance Payer Benefit Plan Subscriber ID Effective Dates Phone Address Type / Group [place] [employer] [place] [id number] 2017-Shantelle [phone] [address] PPO/POS [place] - OUT OF t 87 [id number] [place] [address] documented as of this encounter
--- OUTSIDE RECORDS SUMMARY | 2020-04-02 11:25 | XMS REPORT | Summary of Care ---
:1975 Author Organization [facility] - [facility] Address [address] [place] [address] Care Team Providers Name Role Phone Jennifer Travis Primary Care Provider Reason for Visit Reason Comments Fever Fatigue Cough Dry cough Encounter Details Date Type Department Care Team Description 01/31/2020 Office Visit [facility] Family Padmini Travis PA [address] [place] [address] [place] [address] Acute URI (Primary Dx); [place] [address], Acute Care Clinic Cough [facility] [place] [address] Allergies No Known Allergiesdocumented as [...] Patient who's PCP is Dr. Myles in [place] here with reports of URI symptoms x 3 days. Sick contacts: coworkers, unsure what they have. Daughter went to [place], not symptomatic. No known COVID19 contact. No [...] file Gets together: Not on file Attends baptist service: Not on file Active member of [...] documented in this encounter Plan of Treatment Health Maintenance Due Date Last Done Comments DTaP,Tdap,and Td Vaccines (1 - 1985 Tdap) PAP SMEAR 1995 Breast Cancer Screening 2014 (MAMMOGRAM) INFLUENZA VACCINE (#1) 2019 PNEUMOCOCCAL 0-64 YEARS COMBINED Aged Out No longer eligible based on SERIES patient's age to complete this topic documented as of this encounter Procedures Procedure Name Priority Date/Time Associated Comments Diagnosis LAB ONLY CORONAVIRUS Routine 01/31/2020 2:48 Cough Results for this COVID-19 PCR GNL PM CDT Acute URI procedure a re in the results section. CORONAVIRUS COVID-19 Routine 01/31/2020 2:48 Cough Results for this TESTING PM CDT Acute URI procedure are i n the results section. POCT FLU A AND B Routine 01/31/2020 Cough Results for this (MOLECULAR) Acute URI procedure are i n the results section. documented in this encounter Results LAB ONLY CORONAVIRUS COVID-19 PCR GNL (01/31/2020 2:48 PM CDT) Coronavirus COVID-19 Not Detected Not Detected [facility] Specimen Swab - NASOPHARYNGEAL SWAB Narrative Performed At Not Detected: [facility] A negative result does not preclude COVID-19 infection and should not be used as the sole basis for treatment or other patient management decisions. Negative result s must be combined with clinical observations, patient history, and epidemiological information . Presumptive Positive: Specimen will be sent to State [facility]/CDC for confirmation testing. Inconclusive: Specimen will be sent to [facility]/CDC for additional testing. Invalid: Please collect a new specimen for repeat patient testing. Disclaimer: This test was developed and its performance characteristics determined by [facility]. It has not been cleared or approved by the US Food and Drug Administration (FDA). An Emergency Us e Authorization (EUA) application is under preparation and FDA approval process. This test is used for clinical purposes. It should not be regarded as investigational or for research. This laboratory is certified under the Clinical Laboratory Improvement Amendments (CLIA) as qualified to perform high complexity clinical laboratory testing. Not Detected: A negative result does not preclude COVID-19 infection and should not be used as the sole basis for treatment or other patient management decisions. Negative result s must be combined with clinical observations, patient history, and epidemiological information . Presumptive Positive: Specimen will be sent to [facility] for confirmation testing. Inconclusive: Specimen will be sent to [facility] for additional testing. Invalid: Please collect a new specimen for repeat patient testing. Disclaimer: This test was developed and its performance characteristics determined by [facility]. It has not been cleared or approved by the US Food and Drug Administration (FDA). An Emergency Us e Authorization (EUA) application is under preparation and FDA approval process. This test is used for clinical purposes. It should not be regarded as investigational or for research. This laboratory is certified under the Clinical Laboratory Improvement Amendments (CLIA) as qualified to perform high complexity clinical laboratory testing. Performing Organization Address City[facility] Phone Number [facility] CLIA: [id number], [address] [place] [id number] LABORATORY [facility] CORONAVIRUS COVID-19 TESTING (01/31/2020 2:48 PM CDT) Specimen Swab - NASOPHARYNGEAL SWAB Performing Organization Address [facility] Phone Number [facility] CLIA: [id number], [address] [place] [address] [phone] [facility] POCT FLU A AND B (MOLECULAR) (01/31/2020) Pathologist Sig nature POCT INFLUENZA A negative Negative - Negative POCT INFLUENZA B negative Negative - Negative Specimen Swab documented in this encounter Visit Diagnoses Diagnosis Acute URI - Primary Acute upper respiratory infections of un specified site Cough documented in this encounter Insurance Payer Benefit Plan Subscriber ID Effective Dates Phone Address Type / Group [facility] [id number] 2017-Shantelle [phone] [address] PPO/POS [place] - OUT OF t 87 [id number] [place] [address] documented as of this encounter
[2020-04-02 12:15] LABS: Blood Morphology Comment NOT SEEN (NOT SEEN); Platelet Estimate ADEQ; Urine White Blood Cell Casts OK
[2020-04-02] MEDS ORDERED: KETOROLAC 30 MG/ML INJ ONE (12:17)
[2020-04-02 12:53] LABS: Urine Bacteria <20 /HPF (<20); Urine RBC <5 /HPF (NONE SEEN)
[2020-04-02 12:54] LABS: Urine Culture Reflex Order NOT NEEDED
[2020-04-02] MEDS ORDERED: FAMOTIDINE 20 MG/2 ML VIAL IV ONE (13:06)
[2020-04-02] MEDS ORDERED: FENTANYL CITR 100 MCG/2 ML ONE (13:06)
--- NOTE | 2020-04-02 13:52 | EDPHYS ---
Physician Documentation [facility] Name: Jose Armenta Age: 44 yrs Sex: Female : 1975 Arrival Date: 04/02/2020 Time: 10:05 Bed 4 Private MD: Citlali Myles C ED Physician Ken Hernandez HPI: 04/02 10:49 This 44 yrs old Female presents to ER via Ambulatory with complaints of kb Possible Kidney Stone. 10:49 The patient complains of pain in the left flank. The pain does not radiate. Onset: The kb symptoms/episode began/occurred 2 day(s) ago. Modifying factors: The symptoms are alleviated by nothing. the symptoms are aggravated by nothing. Associated signs and symptoms: Pertinent positives: urinary frequency, nausea, Pertinent negatives: diarrhea, dizziness, dysuria, fever, headache, hematuria, pain radiating to the lower extremities, vomiting. Severity of pain: At its worst the pain was moderate in the emergency department the pain is unchanged. The patient has experienced similar episodes in the past. The patient has not recently seen a physician. 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 - Social history:: Smoking status: Patient denies any tobacco usage or history of. ROS: 10:49 Constitutional: Negative for fever, chills, and weight loss, Cardiovascular: Negative kb for chest pain, palpitations, and edema, Respiratory: Negative for shortness of breath, cough, wheezing, and pleuritic chest pain, Abdomen/GI: Negative for abdominal pain, nausea, vomiting, diarrhea, and constipation, MS/Extremity: Negative for injury and deformity, Skin: Negative for injury, rash, and discoloration, Neuro: Negative for headache, weakness, numbness, tingling, and seizure. 10:49 : Positive for flank pain, urinary frequency. Exam: 10:49 Constitutional: This is a well developed, well nourished patient who is awake, alert, kb and in no acute distress. Head/Face: Normocephalic, atraumatic. Chest/axilla: Normal chest wall appearance and motion. Nontender with no deformity. No lesions are appreciated. Cardiovascular: Regular rate and rhythm with a normal S1 and S2. No gallops, murmurs, or rubs. Normal PMI, no JVD. No pulse deficits. Respiratory: Lungs have equal breath sounds bilaterally, clear to auscultation and percussion. No rales, rhonchi or wheezes noted. No increased work of breathing, no retractions or nasal flaring. Abdomen/GI: Soft, non-tender, with normal bowel sounds. No distension or tympany. No guarding or rebound. No evidence of tenderness throughout. Skin: Warm, dry with normal turgor. Normal color with no rashes, no lesions, and no evidence of cellulitis. MS/ Extremity: Pulses equal, no cyanosis. Neurovascular intact. Full, normal range of motion. Neuro: Awake and alert, GCS 15, oriented to person, place, time, and situation. Cranial nerves II-XII grossly intact. Motor strength 5/5 in all extremities. Sensory grossly intact. Cerebellar exam normal. Normal gait. 10:49 Back: CVA tenderness, that is mild, is noted on the left. Vital Signs: 10:34 BP 111 / 70; Pulse 68; Resp 16; Temp 98.4; Pulse Ox 100% on R/A; Weight 63.5 kg; Height iw 5 ft. 2 in. (157.48 cm); Pain 8/10; 11:10 BP 114 / 74; Pulse 64; Resp 16; Pulse Ox 99% ; jl7 12:00 BP 120 / 77; Pulse 57; Resp 16; Pulse Ox 96% ; Pain 7/10; jl7 13:00 BP 117 / 75; Pulse 58; Resp 16; Pulse Ox 96% ; Pain 9/10; jl7 14:19 BP 115 / 72; Pulse 61; Resp 18; Temp 97.9; Pulse Ox 99% on R/A; ph 10:34 Body Mass Index 25.61 (63.50 kg, 157.48 cm) iw MDM: 10:38 Patient medically screened. kb 10:40 Physician consultation:. kb 10:49 Data reviewed: vital signs, nurses notes. Data interpreted: Pulse oximetry: on room air kb is 100 %. Interpretation: normal. 13:51 Counseling: I had a detailed discussion with the patient and/or guardian regarding: the kb historical points, exam findings, and any diagnostic results supporting the discharge/admit diagnosis, lab results, radiology results, the need for outpatient follow up, a family practitioner, to return to the emergency department if symptoms worsen or persist or if there are any questions or concerns that arise at home. 04/02 10:37 Order name: Urine Microscopic Only; Complete Time: 12:59 kb 04/02 10:48 Order name: CBC with Diff; Complete Time: 12:18 kb 04/02 10:48 Order name: Basic Metabolic Panel; Complete Time: 11:25 kb 04/02 10:49 Order name: Urine Dipstick--Ancillary (enter results); Complete Time: 11:11 bd 04/02 10:49 Order name: Urine --Ancillary (enter results); Complete Time: 11:11 bd 04/02 12:15 Order name: CBC Smear Scan; Complete Time: 12:18 EDMS 04/02 10:37 Order name: Urine Dipstick-Ancillary (obtain specimen); Complete Time: 11:08 kb 04/02 10:37 Order name: CT Stone Protocol; Complete Time: 11:12 kb 04/02 10:48 Order name: IV Start; Complete Time: 11:08 kb Administered Medications: 11:03 Drug: Zofran (Ondansetron) 4 mg Route: IVP; Site: left antecubital; jl7 11:30 Follow up: Response: No adverse reaction; Nausea is decreased jl7 11:05 Drug: morphine 4 mg Route: IVP; Site: left antecubital; jl7 11:30 Follow up: Response: No adverse reaction; Pain is decreased jl7 12:12 Drug: TORadol - Ketorolac 15 mg Route: IVP; Site: left antecubital; jl7 12:37 Follow up: Response: No adverse reaction; Pain is unchanged, physician notified jl7 13:01 Drug: Zofran (Ondansetron) 4 mg Route: IVP; Site: left antecubital; jl7 14:20 Follow up: Response: No adverse reaction; Nausea is decreased ph 13:03 Drug: Pepcid 20 mg Route: IVP; Site: left antecubital; jl7 14:19 Follow up: Response: No adverse reaction ph 13:05 Drug: fentaNYL (PF) 25 mcg Route: IVP; Site: left antecubital; jl7 14:19 Follow up: Response: No adverse reaction; Pain is decreased; RASS: Alert and Calm (0) ph Disposition: 15:06 Co-signature as Attending Physician, Ken Hernandez MD I agree with the assessment and kdr plan of care. Disposition: 04/02/20 13:51 Discharged to Home. Impression: Generalized abdominal pain. - Condition is Stable. - Discharge Instructions: Abdominal Pain, Adult, Kzio-kg-Rxab, Flank Pain, Wsyq-db-Oudi. - Prescriptions for Bentyl 20 mg Oral Tablet - take 1 tablet by ORAL route every 6 hours As needed; 20 tablet. Zofran 4 mg Oral Tablet - take 1 tablet by ORAL route every 6 months As needed; 20 tablet. - Medication Reconciliation Form, Thank You Letter, Antibiotic Education, Prescription Opioid Use, Work release form form. - Follow up: Emergency Department; When: As needed; Reason: Worsening of condition. Follow up: Private Physician; When: 2 - 3 days; Reason: Recheck today's complaints, Continuance of care, Re-evaluation by your physician. Signatures: Dispatcher [employer] EDNJ Lilian Burnett, SHUTTLE REPAIRER-C SHUTTLE REPAIRER-Ken Griggs MD MD [facility] Kala Avalos RN RN iw Elver Aggarwal RN RN [email or web address] Katie Reyna RN ph Corrections: (The following items were deleted from the chart) 14:22 13:51 04/02/2020 13:51 Discharged to Home. Impression: Generalized abdominal pain. iw Condition is Stable. Forms are Medication Reconciliation Form, Thank You Letter, Antibiotic Education, Prescription Opioid Use. Follow up: Emergency Department; When: As needed; Reason: Worsening of condition. Follow up: Private Physician; When: 2 - 3 days; Reason: Recheck today's complaints, Continuance of care, Re-evaluation by your physician. kb
--- NOTE | 2020-04-02 13:52 | ER ---
Nurse's Notes [facility] Name: Jose Armenta Age: 44 yrs Sex: Female : 1975 Arrival Date: 04/02/2020 Time: 10:05 Bed 4 Private MD: Citlali Myles C Diagnosis: Generalized abdominal pain Presentation: 04/02 10:34 Chief complaint: Patient states: left flank pain since Tuesday, feels like a kidney iw stone, previous hx of kidney stones. Coronavirus screen: Proceed with normal triage. Patient denies a cough. Patient denies shortness of breath or difficulty breathing. Patient denies measured and/or subjective temperature greater than 100.4F prior to today's visit. Patient denies travel on a cruise ship or to a country the [facility] currently lists as an affected area. Patient denies contact with known and/or suspected case of COVID-19. Ebola Screen: Patient negative for fever greater than or equal to 101.5 degrees Fahrenheit, and additional compatible Ebola Virus Disease symptoms Patient denies exposure to infectious person. Patient denies travel to an Ebola-affected area in the 21 days before illness onset. No symptoms or risks identified at this time. Initial Sepsis Screen: Does the patient meet any 2 criteria? No. Patient's initial sepsis screen is negative. Does the patient have a suspected source of infection? No. Patient's initial sepsis screen is negative. Risk Assessment: Do you want to hurt yourself or someone else? Patient reports no desire to harm self or others. Onset of symptoms was March 31, 2020. 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 - Social history:: Smoking status: Patient denies any tobacco usage or history of. Screenin:00 Abuse screen: Denies threats or abuse. Denies injuries from another. Nutritional jl7 screening: No deficits noted. Tuberculosis screening: No symptoms or risk factors identified. Fall Risk IV access (20 points). Total Ramsey Fall Scale indicates No Risk (0-24 pts). Assessment: 11:00 General: Appears in no apparent distress. uncomfortable, Behavior is calm, cooperative, jl7 appropriate for age. Pain: Complains of pain in left flank Pain currently is 8 out of 10 on a pain scale. Neuro: Level of Consciousness is awake, alert, obeys commands, Oriented to person, place, time, situation. Cardiovascular: Patient's skin is warm and dry. Respiratory: Airway is patent Respiratory effort is even, unlabored, Respiratory pattern is regular, symmetrical. GI: Bowel sounds present X 4 quads. Abd is soft and non tender. : Reports pain in left flank(s). Derm: Skin is pink, warm \\T\\ dry. 12:00 Reassessment: Patient appears in no apparent distress at this time. Patient and/or jl7 family updated on plan of care and expected duration. Pain level reassessed. Patient is alert, oriented x 3, equal unlabored respirations, skin warm/dry/pink. pt reports pain rated 7/10, ERP notified, see MAR for orders. 12:35 Reassessment: Pt states "My stomach started hurting under my ribs after the Toradol." jl7 Reports pain feels like stabbing, rated 9/10. ERP notified, no new orders received at this time. 12:55 Reassessment: Pt states "My pain is getting worse and it's making me nauseous." ERP jl7 notified, see MAR for orders. 14:19 Reassessment: Patient appears in no apparent distress at this time. Patient and/or ph family updated on plan of care and expected duration. Pain level reassessed. Patient is alert, oriented x 3, equal unlabored respirations, skin warm/dry/pink. Pt d/c home w/ prescriptions and work note. Vital Signs: 10:34 BP 111 / 70; Pulse 68; Resp 16; Temp 98.4; Pulse Ox 100% on R/A; Weight 63.5 kg; Height iw 5 ft. 2 in. (157.48 cm); Pain 8/10; 11:10 BP 114 / 74; Pulse 64; Resp 16; Pulse Ox 99% ; jl7 12:00 BP 120 / 77; Pulse 57; Resp 16; Pulse Ox 96% ; Pain 7/10; jl7 13:00 BP 117 / 75; Pulse 58; Resp 16; Pulse Ox 96% ; Pain 9/10; jl7 14:19 BP 115 / 72; Pulse 61; Resp 18; Temp 97.9; Pulse Ox 99% on R/A; ph 10:34 Body Mass Index 25.61 (63.50 kg, 157.48 cm) iw ED Course: 10:05 Patient arrived in ED. as 10:05 Citlali Myles MD is Private Physician. as 10:17 Lilian Burnett [facility]-C [facility]. kb 10:17 Ken Hernandez MD is Attending Physician. kb 10:36 Triage completed. iw 10:37 Arm band placed on. iw 10:44 Elver Aggarwal RN is Primary Nurse. jl7 10:53 CT Stone Protocol In Process Unspecified. EDMS 11:00 Patient has correct armband on for positive identification. Placed in gown. Bed in low jl7 position. Call light in reach. Side rails up X 1. Pulse ox on. NIBP on. Warm blanket given. 11:00 Initial lab(s) drawn, by me, sent to lab. Urine collected: clean catch specimen, clear. jl7 Inserted saline lock: 20 gauge in left antecubital area, using aseptic technique. Blood collected. 14:20 No provider procedures requiring assistance completed. IV discontinued, intact, ph bleeding controlled, No redness/swelling at site. Pressure dressing applied. Administered Medications: 11:03 Drug: Zofran (Ondansetron) 4 mg Route: IVP; Site: left antecubital; jl7 11:30 Follow up: Response: No adverse reaction; Nausea is decreased jl7 11:05 Drug: morphine 4 mg Route: IVP; Site: left antecubital; jl7 11:30 Follow up: Response: No adverse reaction; Pain is decreased jl7 12:12 Drug: TORadol - Ketorolac 15 mg Route: IVP; Site: left antecubital; jl7 12:37 Follow up: Response: No adverse reaction; Pain is unchanged, physician notified jl7 13:01 Drug: Zofran (Ondansetron) 4 mg Route: IVP; Site: left antecubital; jl7 14:20 Follow up: Response: No adverse reaction; Nausea is decreased ph 13:03 Drug: Pepcid 20 mg Route: IVP; Site: left antecubital; jl7 14:19 Follow up: Response: No adverse reaction ph 13:05 Drug: fentaNYL (PF) 25 mcg Route: IVP; Site: left antecubital; jl7 14:19 Follow up: Response: No adverse reaction; Pain is decreased; RASS: Alert and Calm (0) ph Outcome: 13:51 Discharge ordered by . kb 14:21 Discharged to home ambulatory. ph 14:21 Condition: good 14:21 Discharge instructions given to patient, Instructed on discharge instructions, follow up and referral plans. medication usage, Demonstrated understanding of instructions, follow-up care, medications. 14:22 Patient left the ED. iw Signatures: Dispatcher [employer] EDLilian Sherman, GIN POLE OPERATOR-C GIN POLE OPERATOR-Soco Kyle Irene, RN RN Katie Reyna RN RN ph Leal, Jahala, ALFONZO RN jl7
[2020-04-02 15:01] VITALS: BP 115/72; TEMP 97.9; O2SAT 99
== END 2020-04-02 14:22 | disposition home or self-care (01) ==
LOC: ER 10:03
DX: R10.84 Generalized abdominal pain (principal); I45.6 Pre-excitation syndrome; Z87.442 Personal history of urinary calculi
CPT/HCPCS: 85025; 80048; 36415; 81025; 76377; 74176; 96375; 96374; 99284; J3010; J2405 ×2; 81003; 81015

== ENCOUNTER 2023-03-30 11:41 | Emergency (ER) | payer BC, SELFPAY ==
--- OUTSIDE RECORDS SUMMARY | 2023-03-30 12:18 | XMS REPORT | Continuity of Care Document ---
:1975 Author Organization [facility] t Address [address] [place] [address] Care Team Providers Name Role Phone Amaury Cormier MD Primary Care Physician AMAURY CORMIER Attending Clinician Unavailable AMAURY CORMIER Attending Clinician Unavailable [email or web address] Attending Clinician Unavailable Jorge Luis Attending Clinician Unavailable Carlos ORTEGA, Ary Peña Attending Clinician Monty Calderon MD Attending Clinician [phone] Ada Campbell Attending Clinician Ignacia Daniel Attending Clinician Unavailable Marzena Hay Attending Clinician Unavailable Elizabeth Attending Clinician Unavailable MOHSEN BALTAZAR Attending Clinician Unavailable MD AMAURY CORMIER Attending Clinician Unavailable VLAD SUTHERLAND Attending Clinician Unavailable [facility] Attending Clinician Unavailable Jennifer Castellon Attending Clinician JENNIFER MATOS Attending Clinician Unavailable Doctor Unassigned, [place] Attending Clinician Unavailable AMAURY CORMIER Admitting Clinician Unavailable [email or web address] Admitting Clinician Unavailable FOG_Bakari Admitting Clinician Unavailable ARY GONZALEZ Admitting Clinician Unavailable Marzena Hay Admitting Clinician Unavailable DORINA_Jud Admitting Clinician Unavailable Amaury Cormier Admitting Clinician MD AMAURY CORMIER Admitting Clinician Unavailable VLAD SUTHERLAND Admitting Clinician Unavailable Physician, No Primary or Family Admitting Clinician Unavaila ble Payers Payer Name Policy Type Policy Number Effective Date Expiration Date S an[place] [id number] 2021 00:00:00 [place] [id number] 2021 00:00:00 [place] [id number] 2017 00:00:00 OUT OF STATE Problems Condition Condition Condition Status Onset Resolution Last Treating Co mments Source Name Details Category Date Date Treatment Clinician Date Nausea Nausea Disease Active Overview: Method i 01-[address] 00:00: g of this Hospita 00 note l might be different from the original. 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 00 Sports Medicin e History of History of Problem Active A zalea arthrodesi Arthrodesi 12-08 Or thope s s 00:00: dic 00 Sports Medicin e DDD DDD Disease Active Methodi (degenerat (degenerat 8 st lamonte disc lamonte disc 00:00: Hospit a disease), disease), 00 l lumbar lumbar Lumbar Lumbar Disease Active Methodi radiculopa radiculopa 05-20 st thy, thy, 00:00: Hospita chronic chronic 00 l Chronic Chronic Disease Active Methodi right-side right-side 7-07 st d low back d low back 00:00: Ho spita pain with pain with 00 l right-side right-side d sciatica d sciatica No known No known Disease [facility] active active Health problems problems Hormone Hormone Problem Active 2022-02-02 M emoria implant implant 07:00:59 l replacemen replacemen He rmann t therapy t therapy (procedure (procedure ) ) Active Problem 02/02/2022 [facility] Polyp of Polyp of Problem Active 2022-02-02 [facility]oria colon colon 07:00:59 l (disorder) (disorder) He rmann Active Problem 02/02/2022 [facility] Abdominal Abdominal Problem Active 2022-02-02 [facility] pain pain 07:00:59 l (finding) (finding) Herm shane Active Problem 02/02/2022 [facility] Anxiety Anxiety Problem Active 2022-02-02 M emoria (finding) (finding) 07:00:59 l Active Jigar Problem 02/02/2022 [facility] Depressive Depressiv Problem Active 2022-02-02 Memoria disorder e disorder 07:00:59 l (disorder) (disorder) He rmann Active Problem 02/02/2022 [facility] Endometrio Endometri Problem Active 2022-02-02 Memoria sis osis 07:00:59 l (morpholog (morpholog He rmann ic ic abnormalit abnormalit y) y) Active Problem 02/02/2022 hysterecto my [facility] Generalize Generaliz Problem Active 2022-02-02 Memoria d ed 07:00:59 l abdominal abdominal Herm shane pain pain (finding) (finding) Active Problem 02/02/2022 [facility] History of Past Illness Condition Condition Condition Status Onset Resolution Last Treating Co mments Source Name Details Category Date Date Treatment Clinician Date Generalize Generaliz Problem 2022-02-02 2022-02-02 Memoria d ed 3- 07:00:59 07:00:59 l abdominal abdominal 17:00: Herm shane pain pain 00 02/01/2022 02/02/2022 [facility] Allergies, Adverse Reactions, Alerts Allergy Allergy Status Severity Reaction(s) Onset Inactive Treating Comm ents Source Name Type Date Date Clinician ONDANSET DRUG Active Anxiety 2019- [facility] HCL INGREDI 6-04 ity of 00:00: [address] Ondanset Propensi Active Anxiety Metho di luc [facility] ty to [address] adverse 00:00: Hospita reaction 00 l s to drug No Known DA Active [facility]04 [place] [facility] No Known DA Active [facility] 01-04 [place] Allergie 00:[facility]: d s [facility] NO KNOWN Drug Active Univers ALLERGIE Class ity of [facility] No Known No Known Active Memori a Medicati Medicati l on on [place] Allergie Allergie s s Codeine Propensi Active GI Severe Methodi ty to Intolerance nausea- st adverse per pt Hospita reaction sometimes l s to drug Family History Family Member Diagnosis Comments Start Date Stop Date Source Natural brother Irritable bowel Meth odist syndrome [facility] Natural brother Pancreatitis [facility] Maternal Colon cancer [facility] Maternal Colon polyps [facility] Natural mother Colon polyps [facility] Natural mother Osteoporosis [facility] Social History Social Habit Start Date Stop Date Quantity Comments Source Gender identity [facility] Sexual orientation Method ist Hospital History of Social 2023-01-17 2023-01-[address] function 00:00:00 00:00:00 Hospital Alcohol intake 2023-01-12 2023-01-12 Current drinker Metho dist 00:00:00 00:00:00 of alcohol Hospital (finding) Tobacco use and 2023-01-06 2023-01-06 Smokeless [facility] exposure 00:00:00 00:00:00 tobacco non-user Hospital Alcohol Comment 2017-05-20 2017-05-20 two to three [facility] 00:00:00 00:00:00 times per month Hospital Sex Assigned At [birth year] [facility] 00:00:00 00:00:00 Hospital Smoking Status Start Date Stop Date Source Social History [facility] Medications Ordered Filled Start Stop Current Ordering Indication Dosage Frequency Signature Comments Components Source Medication Medication Date Date Medication? Clinician (SIG) Name Name multivitami Yes 1{tbl} QD Take 1 Me thodi n tablet 3-[address] 08:35: mouth Hospita 01 daily. l zolpidem Yes zolpidem Metho di (AMBIEN) 10 2-[address] mg tablet 09:38: tablet Hospit a 03 TAKE ONE l (1) TABLET(S) BY MOUTH AT BEDTIME. acetaminoph Yes acetaminop Methodi en-codeine - hen 300 st (TYLENOL 09:38: mg-codeine Hos dyana WITH 03 30 mg l CODEINE #3) tablet 300-30 mg TAKE ONE per tablet (1) TABLET(S) BY MOUTH TWICE A DAY NEEDED FOR PAIN. promethazin Yes promethazi Methodi e -[address] (PHENERGAN) 09:38: tablet Hosp ludwig 25 MG 03 TAKE ONE l tablet (1) TABLET(S) BY MOUTH THREE TIMES A DAY NEEDED FOR NAUSEA. amitriptyli 2022- No 10mg Take 1 Met hodi ne (ELAVIL) 01-11- tablet (10 s t 10 MG 07:49: 00:00 mg total) Hospit a tablet 00 :00 by mouth l as needed for sleep (for migraine). scopolamine 2023- Yes 1{patch Q72H Place 1 Methodi (Transderm- 01-06 } patch on st Scop) 1 mg 00:00: 05:59 the skin Ho spita over 3 days 00 :00 every l third day. topiramate Yes 50mg Q.5D Take 1 Metho di (TOPAMAX) 2-17 tablet (50 st 50 MG 00:00: mg total) Hospita tablet 00 by mouth 2 l (two) times a day. Misc No 300 mL, Memoria Medication 02-01 Soln-IV, l 13:42: IV, Once, first dose 02/01/22 8:42:00 CDT, stop date 02/01/22 8:42:00 CDT Misc 0 No 300 mL, Memoria Medication - Soln-IV, l 13:42: IV, Once, first dose 02/01/22 8:42:00 CDT, stop date 02/01/22 8:42:00 CDT Misc No 300 mL, Memoria Medication 02-01 Soln-IV, l 13:42: IV, Once, Jigar 00 first dose 02/01/22 8:42:00 CDT, stop date 02/01/22 8:42:00 CDT propofol 2022-0 No 30 mg = 3 Anton terrell 3-21 mL, l 13:36: Emulsion, Glen 00 IV, Once, first dose 02/01/22 8:36:00 CDT, stop date 02/01/22 8:36:00 CDT propofol 2022-0 No 30 mg = 3 Anton terrell 3-21 mL, l 13:36: Emulsion, Jigar 00 IV, Once, first dose 02/01/22 8:36:00 CDT, stop date 02/01/22 8:36:00 CDT propofol 2022-0 No 30 mg = 3 Anton terrell 3-21 mL, l 13:36: Emulsion, Jigar 00 IV, Once, first dose 02/01/22 8:36:00 CDT, stop date 02/01/22 8:36:00 CDT lidocaine 2022-0 No 60 mg = 3 Mem oria 3-21 mL, l 13:35: Injection, Glen 00 IV, Once, first dose 02/01/22 8:35:00 CDT, stop date 02/01/22 8:35:00 CDT propofol 2022-0 No 50 mg = 5 Anton terrell 3-21 mL, l 13:35: Emulsion, Jigar 00 IV, Once, first dose 02/01/22 8:35:00 CDT, stop date 02/01/22 8:35:00 CDT lidocaine 2022-0 No 60 mg = 3 Mem oria 3-21 mL, l 13:35: Injection, Glen 00 IV, Once, first dose 02/01/22 8:35:00 CDT, stop date 02/01/22 8:35:00 CDT propofol 2022-0 No 50 mg = 5 Anton terrell 3-21 mL, l 13:35: Emulsion, Jigar 00 IV, Once, first dose 02/01/22 8:35:00 CDT, stop date 02/01/22 8:35:00 CDT lidocaine 2022-0 No 60 mg = 3 Mem oria 3-21 mL, l 13:35: Injection, Glen 00 IV, Once, first dose 02/01/22 8:35:00 CDT, stop date 02/01/22 8:35:00 CDT propofol 2-0 No 50 mg = 5 Anton terrell 3-21 mL, l 13:35: Emulsion, IV, Once, first dose 02/01/22 8:35:00 CDT, stop date 02/01/22 8:35:00 CDT midazolam 2-0 No 2 mg = 2 Anton terrell 3-21 mL, l 13:25: Injection, IV, Once, first dose 02/01/22 8:25:00 CDT, stop date 02/01/22 8:25:00 CDT midazolam 2021-0 No 2 mg = 2 Anton terrell 3-21 mL, l 13:25: Injection, IV, Once, first dose 02/01/22 8:25:00 CDT, stop date 02/01/22 8:25:00 CDT midazolam 2021-0 No 2 mg = 2 Anton terrell 3-21 mL, l 13:25: Injection, IV, Once, first dose 02/01/22 8:25:00 CDT, stop date 02/01/22 8:25:00 CDT LR 1,000 mL 2021-0 No 1,000 mL, M emoria 3- IV, 75 l 12:24: mL/hr, start date 02/01/22 7:24:00 CDT, 1.66, m2 Saline Lock 2021-0 No 10 mL, Anton terrell Flush 3-21 Soln, IV l 12:24: Push, As Indicated PRN for flush, first dose 02/01/22 7:24:00 CDT Dilaudid 2021-0 No 0.5 mg = Memor ia 3-21 0.5 mL, l 12:24: Injection, IV Push, q10min PRN for pain severe (7-10), first dose 02/01/22 7:24:00 CDT Levalbutero 2-0 No 0.63 mg = M emoria l 0.21 3-21 3 mL, l MG/ML 12:24: Soln, NEB, Cheko n Inhalant 00 Once PRN Solution for [Xopenex] wheezing, first dose 02/01/22 7:24:00 CDT Ondansetron 2021-0 No 4 mg = 2 Me moria 3-21 mL, l 12:24: Injection, 00 IV Push, q15min PRN for nausea, order duration: 2 doses, first dose 02/01/22 7:24:00 CDT, stop date Limited # of times Promethazin 2021-0 No 12.5 mg = M emoria e 3-21 0.5 mL, l 12:24: Injection, Jigar 00 IM, Once PRN for vomiting, first dose 02/01/22 7:24:00 CDT LR 1,000 mL 2021-0 No 1,000 mL, M emoria 3-21 IV, 75 l 12:24: mL/hr, start date 02/01/22 7:24:00 CDT, 1.66, m2 Saline Lock 2021-0 No 10 mL, Anton terrell Flush 3-21 Soln, IV l 12:24: Push, As Indicated PRN for flush, first dose 02/01/22 7:24:00 CDT Dilaudid 2021-0 No 0.5 mg = Memor ia 3-21 0.5 mL, l 12:24: Injection, Jigar 00 IV Push, q10min PRN for pain severe (7-10), first dose 02/01/22 7:24:00 CDT LR 1,000 mL 2021-0 No 1,000 mL, M emoria 3-21 IV, 75 l 12:24: mL/hr, start date 02/01/22 7:24:00 CDT, 1.66, m2 Saline Lock 2021-0 No 10 mL, Anton terrell Flush 3-21 Soln, IV l 12:24: Push, As Indicated PRN for flush, first dose 02/01/22 7:24:00 CDT Dilaudid 2021-0 No 0.5 mg = Memor ia 3-21 0.5 mL, l 12:24: Injection, Glen 00 IV Push, q10min PRN for pain severe (7-10), first dose 02/01/22 7:24:00 CDT Levalbutero 2022-0 No 0.63 mg = M emoria l 0.21 3-21 3 mL, l MG/ML 12:24: Soln, NEB, Cheko n Inhalant 00 Once PRN Solution for [Xopenex] wheezing, first dose 02/01/22 7:24:00 CDT Ondansetron 2-0 No 4 mg = 2 Me moria 3-21 mL, l 12:24: Injection, Jigar 00 IV Push, q15min PRN for nausea, order duration: 2 doses, first dose 02/01/22 7:24:00 CDT, stop date Limited # of times Promethazin 2-0 No 12.5 mg = M emoria e 3-21 0.5 mL, l 12:24: Injection, Glen 00 IM, Once PRN for vomiting, first dose 02/01/22 7:24:00 CDT Levalbutero 2021-0 No 0.63 mg = M emoria l 0.21 3-21 3 mL, l MG/ML 12:24: Soln, NEB, Cheko n Inhalant 00 Once PRN Solution for [Xopenex] wheezing, first dose 02/01/22 7:24:00 CDT Ondansetron 2021-0 No 4 mg = 2 Me moria 3-21 mL, l 12:24: Injection, Jigar 00 IV Push, q15min PRN for nausea, order duration: 2 doses, first dose 02/01/22 7:24:00 CDT, stop date Limited # of times Promethazin 2-0 No 12.5 mg = M emoria e 3-21 0.5 mL, l 12:24: Injection, Jigar 00 IM, Once PRN for vomiting, first dose 02/01/22 7:24:00 CDT pantoprazol 2-0 Yes 0 Memori a e 40 mg 3-21 Refill(s) l oral 11:12: Jigar delayed 00 release tablet pantoprazol 2021-0 Yes 0 Memori a e 40 mg 3-21 Refill(s) l oral 11:12: Jigar delayed 00 release tablet pantoprazol 2-0 Yes 0 Memori a e 40 mg 3-21 Refill(s) l oral 11:12: Glen delayed 00 release tablet LR 1,000 mL 2021-0 No 1,000 mL, M emoria 3-21 IV, 30 l 11:05: mL/hr, start date 02/01/22 6:05:00 CDT, 1.66, m2 Lidocaine 2022-0 No 0.2 mL, Memor ia 2% 0.2 mL 3-21 Injection, l [facility] , Once PRN for other (see comment), first dose 02/01/22 6:05:00 CDT LR 1,000 mL 2021-0 No 1,000 mL, M emoria 3-21 IV, 30 l 11:05: mL/hr, start date 02/01/22 6:05:00 CDT, 1.66, m2 Lidocaine 2021-0 No 0.2 mL, Memor ia 2% 0.2 mL 3-21 Injection, l IV Start 11:05: [facility] [[facility]] , Once PRN for other (see comment), first dose 02/01/22 6:05:00 CDT LR 1,000 mL 2021-0 No 1,000 mL, M emoria 3-21 IV, 30 l 11:05: mL/hr, start date 02/01/22 6:05:00 CDT, 1.66, m2 Lidocaine 2021-0 No 0.2 mL, Memor ia 2% 0.2 mL 3-21 Injection, l IV Start 11:05: [facility] [[facility]] , Once PRN for other (see comment), first dose 02/01/22 6:05:00 CDT DULoxetine 2021-0 Yes 60 mg = 1 Me moria 60 mg oral 3-10 caps, l delayed 20:20: Oral, Jigar release 00 Daily, 0 capsule Refill(s), depression Alprazolam 2021-0 Yes 2 mg = 1 Mem oria 2 MG Oral 3-10 tabs, l Tablet 20:20: Oral, As Jigar 00 Indicated, PRN only, 0 Refill(s), anxiety busPIRone 2021-0 Yes 10 mg = 1 Mem oria 10 mg oral 3-10 tabs, l tablet 20:20: Oral, BID, Adalgisa nn 00 0 Refill(s), depression promethazin Yes See Memori a e 25 mg 3-10 Instructio l oral tablet 20:20: ns, PRN Her lawson 00 only, 0 Refill(s), nausea Estradiol 1 Yes 1 mg = 1 Me moria MG Oral 3-10 tabs, l Tablet 20:20: Oral, Jigar 00 Daily, 0 Refill(s), hormone DULoxetine Yes 60 mg = 1 Me moria 60 mg oral 3-10 caps, l delayed 20:20: Oral, Glen release 00 Daily, 0 capsule Refill(s), depression Alprazolam Yes 2 mg = 1 Mem oria 2 MG Oral 3-10 tabs, l Tablet 20:20: Oral, As Jigar 00 Indicated, PRN only, 0 Refill(s), anxiety busPIRone Yes 10 mg = 1 Mem oria 10 mg oral 3-10 tabs, l tablet 20:20: Oral, BID, Adalgisa nn 00 0 Refill(s), depression promethazin Yes See Memori a e 25 mg 3-10 Instructio l oral tablet 20:20: ns, PRN Her lawson 00 only, 0 Refill(s), nausea Estradiol 1 Yes 1 mg = 1 Me moria MG Oral 3-10 tabs, l Tablet 20:20: Oral, Glen 00 Daily, 0 Refill(s), hormone DULoxetine Yes 60 mg = 1 Me moria 60 mg oral 3-10 caps, l delayed 20:20: Oral, Jigar release 00 Daily, 0 capsule Refill(s), depression Alprazolam Yes 2 mg = 1 Mem oria 2 MG Oral 3-10 tabs, l Tablet 20:20: Oral, As Jigar 00 Indicated, PRN only, 0 Refill(s), anxiety busPIRone Yes 10 mg = 1 Mem oria 10 mg oral 3-10 tabs, l tablet 20:20: Oral, BID, Adalgisa nn 00 0 Refill(s), depression promethazin Yes See Memori a e 25 mg 3-10 Instructio l oral tablet 20:20: ns, PRN Her lawson 00 only, 0 Refill(s), nausea Estradiol 1 Yes 1 mg = 1 Me moria MG Oral 3-10 tabs, l Tablet 20:20: Oral, Glen 00 Daily, 0 Refill(s), hormone ALPRAZolam 2020-11 Yes 2mg QD Take 2 mg UT (Xanax) 2 2-23 by mouth Health MG tablet 14:47: at night 53 if needed for anxiety. promethazin 2020-11 Yes 25mg Q6H Take 25 mg UT e 2-23 by mouth Health (Phenergan) 14:47: every 6 25 MG 53 (six) tablet hours if needed for nausea or vomiting. ALPRAZolam 2020-11 Yes 2mg QD Take 2 mg UT (Xanax) 2 2-23 by mouth Health MG tablet 14:47: at night 53 if needed for anxiety. promethazin 2020-11 Yes 25mg Q6H Take 25 mg UT e 2-23 by mouth Health (Phenergan) 14:47: every 6 25 MG 53 (six) tablet hours if needed for nausea or vomiting. DULoxetine 2020-11 Yes 60mg QD Take 60 mg U T (Cymbalta) 2-18 by mouth 1 [facility] [address] 00:00: (one) time capsule 00 each day. estradiol 2020-11 Yes 1mg QD Take 1 mg UT (Estrace) 1 2-18 by mouth 1 He alth MG tablet 00:00: (one) time 00 each day. DULoxetine 2020-11 Yes 60mg QD Take 60 mg U T (Cymbalta) 2-18 by mouth 1 [facility] [address] 00:00: (one) time capsule 00 each day. estradiol 2020-11 Yes 1mg QD Take 1 mg UT (Estrace) 1 2-18 by mouth 1 He alth MG tablet 00:00: (one) time 00 each day. pantoprazol 2019-0 Yes QD every Metho di e 3- morning. st (PROTONIX) 00:00: Hospita 40 MG EC 00 l tablet DULoxetine 2019-0 Yes QD every Method i (CYMBALTA) [address] 60 MG 00:00: Hospita capsule 00 l estradioL 2019-0 Yes QD every Methodi (ESTRACE) 1 2-[address] MG tablet 00:00: Hospita 00 l ALPRAZolam 2013-0 Yes 1mg QD 2 tablets Me thodi (XANAX) 0.5 5-29 ([address] MG tablet 00:00: total) Hospit a 00 nightly. l acetaminoph acetaminoph No acetaminop Kacy en 300 en 300 hen 300 Orthope mg-codeine mg-codeine mg-codeine dic 30 mg 30 mg 30 mg Sports tablet TAKE tablet TAKE tablet Medicin ONE (1) ONE (1) TAKE ONE e TABLET(S) TABLET(S) (1) BY MOUTH BY MOUTH TABLET(S) TWICE A DAY TWICE A DAY BY MOUTH NEEDED NEEDED TWICE A FOR PAIN. FOR PAIN. DAY NEEDED FOR PAIN. acetaminoph acetaminoph No acetaminop Kacy en 300 en 300 hen 300 [facility]ope mg-codeine mg-codeine mg-codeine dic 60 mg 60 mg 60 mg Sports tablet TAKE tablet TAKE tablet Medicin ONE (1) ONE (1) TAKE ONE e TABLET(S) TABLET(S) (1) BY MOUTH BY MOUTH TABLET(S) TWICE A TWICE A BY MOUTH DAY. DAY. TWICE A DAY. alprazolam alprazolam No alprazolam Kacy 2 mg tablet 2 mg tablet 2 mg O rthope TAKE ONE TAKE ONE tablet dic (1) (1) TAKE ONE Sports TABLET(S) TABLET(S) (1) Medic in BY MOUTH BY MOUTH TABLET(S) e TWICE A DAY TWICE A DAY BY MOUTH NEEDED NEEDED TWICE A FOR FOR DAY ANXIETY. ANXIETY. NEEDED FOR ANXIETY. amoxicillin amoxicillin No amoxicilli Kacy 875 mg 875 mg n 875 mg Orthope tablet TAKE tablet TAKE tablet dic ONE (1) ONE (1) TAKE ONE Sport s TABLET(S) TABLET(S) (1) Medic in BY MOUTH BY MOUTH TABLET(S) e TWICE A TWICE A BY MOUTH DAY. DAY. TWICE A DAY. buspirone buspirone No buspirone Kacy 10 mg 10 mg 10 mg [facility] tablet TAKE tablet TAKE tablet dic ONE (1) ONE (1) TAKE ONE Sport s TABLET(S) TABLET(S) (1) Medic in BY MOUTH BY MOUTH TABLET(S) e TWICE A TWICE A BY MOUTH DAY. DAY. TWICE A DAY. cholestyram cholestyram No cholestyra Kacy ine (with ine (with mine (with [facility] sugar) 4 sugar) 4 sugar) 4 dic gram powder gram powder gram S ports for susp in for susp in powder for Medicin a packet a packet susp in a e MIX ONE (1) MIX ONE (1) packet MIX PACKET WITH PACKET WITH ONE (1) WATER AND WATER AND PACKET TAKE BY TAKE BY WITH WATER MOUTH ONCE MOUTH ONCE AND TAKE DAILY. DAILY. BY MOUTH ONCE DAILY. duloxetine duloxetine No duloxetine Kacy 60 mg 60 mg 60 mg Orthope capsule,del capsule,del capsule,de dic ayed ayed layed Sports release release release Medici n TAKE ONE TAKE ONE TAKE ONE e (1) (1) (1) CAPSULE(S) CAPSULE(S) CAPSULE(S) BY MOUTH BY MOUTH BY MOUTH ONCE A DAY. ONCE A DAY. ONCE A DAY. estradiol 1 estradiol 1 No estradiol Kacy mg tablet mg tablet 1 mg Ortho pe TAKE ONE TAKE ONE tablet dic (1) (1) TAKE ONE Sports TABLET(S) TABLET(S) (1) Medic in BY MOUTH BY MOUTH TABLET(S) e ONCE A DAY. ONCE A DAY. BY MOUTH ONCE A DAY. estradiol 2 estradiol 2 No estradiol Kacy mg tablet mg tablet 2 mg Ortho pe TAKE ONE TAKE ONE tablet dic (1) (1) TAKE ONE Sports TABLET(S) TABLET(S) (1) Medic in BY MOUTH BY MOUTH TABLET(S) e ONCE A DAY. ONCE A DAY. BY MOUTH ONCE A DAY. naproxen naproxen No 1 BID naproxen Aza bea 500 mg 500 mg 500 mg Orthope tablet Take tablet Take tablet dic 1 tablet 1 tablet Take 1 Sport s twice a day twice a day tablet Medicin by oral by oral twice a e route with route with day by meals. meals. oral route with meals. promethazin promethazin No promethazi Kacy e 25 mg e 25 mg ne 25 mg Ortho pe tablet TAKE tablet TAKE tablet dic ONE (1) ONE (1) TAKE ONE Sport s TABLET(S) TABLET(S) (1) Medic in BY MOUTH BY MOUTH TABLET(S) e THREE TIMES THREE TIMES BY MOUTH A DAY A DAY THREE NEEDED FOR NEEDED FOR TIMES A NAUSEA. NAUSEA. DAY NEEDED FOR NAUSEA. zolpidem 10 zolpidem 10 No zolpidem Kacy mg tablet mg tablet 10 mg Orth ope TAKE ONE TAKE ONE tablet dic (1) (1) TAKE ONE Sports TABLET(S) TABLET(S) (1) Medic in BY MOUTH AT BY MOUTH AT TABLET(S) e BEDTIME. BEDTIME. BY MOUTH AT BEDTIME. Vital Signs Vital Name Observation Time Observation Value Comments Source Height 2022-12-07 00:00:00 63 [in_i] [facility] BMI (Body Mass 2022-12-07 00:00:00 26.6 kg/m2 [facility] Body Weight 2022-12-07 00:00:00 150 [lb_av] [facility] Body height 2021-11-05 20:54:00 157[facility]5 [facility] Body weight 2021-11-05 20:54:00 63.504 kg [facility] h BMI 2021-11-05 20:54:00 25.61 kg/m2 [facility] Systolic blood 2023-01-11 14:22:00 102 mm[Hg] [facility] pressure Diastolic blood 2023-01-11 14:22:00 60 mm[Hg] [facility] pressure Heart rate 2023-01-11 14:22:00 69 /min [facility] Respiratory rate 2023-01-11 14:22:00 19 /min [facility] Oxygen saturation in 2023-01-11 14:22:00 97 /min [facility] Arterial blood by Pulse oximetry Body temperature 2023-01-11 13:53:00 36.28 Lu [facility] Body height 2023-01-11 12:47:00 157.5 cm [facility] Body weight 2023-01-11 12:47:00 68.04 kg [facility] BMI 2023-01-11 12:47:00 27.44 kg/m2 [facility] Respitory Rate 2022-02-01 14:21:00 Memori al Jigar Systolic (mm Hg) 2022-02-01 14:21:00 Anton rial [place] Diastolic (mm Hg) 2022-02-01 14:21:00 Mem orial Jigar Heart Rate 2022-02-01 14:00:00 [facility] Jigar Respitory Rate 2022-02-01 14:00:00 Memori al Jigar Systolic (mm Hg) 2022-02-01 14:00:00 Anton rial Jigar Diastolic (mm Hg) 2022-02-01 14:00:00 Mem orial [place] Heart Rate 2022-02-01 13:50:00 [facility] [place] Respitory Rate 2022-02-01 13:50:00 Memori al Jigar Systolic (mm Hg) 2022-02-01 13:50:00 Anton rial [place] Diastolic (mm Hg) 2022-02-01 13:50:00 Mem orial Jigar Heart Rate 2022-02-01 13:40:00 [facility] Temperature Oral (F) 2022-02-01 13:40:00 36.3 Lu [facility] Temperature Oral (F) 2022-02-01 11:09:00 36.7 Lu [facility] Height 2022-02-01 11:09:00 159 cm [facility] Weight 2022-02-01 11:09:00 [facility] Height 2022-01-21 20:17:00 159 cm [facility] Weight 2022-01-21 20:17:00 [facility] Procedures Procedure Date / Time Performing Clinician Source Performed SURGICAL PATHOLOGY REQUEST 2023-01-11 17:32:00 [facility] EGD WITH BIOPSY 2023-01-11 13:34:00 [facility] COVID-19 QUALITATIVE 2023-01-06 22:47:00 [facility] RT-PCR XR, shoulder, 2 or more 2022-12-07 00:00:00 Sunday allen [facility] SIGMOIDOSCOPY FLEXIBLE 2022-02-01 13:35:00 Memor ial Jigar DIAGNOSTIC W/COLLECTION OF SPECIMENS 54612 (N/A)<sup>2</sup> DILATATION RECTUM UNDER 2022-02-01 13:35:00 Anton rial [place] ANESTHESIA [id number] (N/A)<sup>1</sup> Colectomy<sup>3</sup> 2020-07-15 05:00:00 Memori al Jigar Colonoscopy<sup>4</sup> 2020-03-14 05:00:00 Anton Kimball Cholecystectomy 2012-11-14 06:00:00 [facility] [facility] Appendectomy 2003-11-14 06:00:00 [facility] Hysterectomy 1999-11-14 06:00:00 [facility] Append[facility] Gallbladder Surgery [facility] Hysterectomy [facility] Plan of Care Planned Activity Planned Date Details Comments Source Future Scheduled 2023-03-30 COVID-19 VACCINE (#1) [facility] Test 12:12:33 [code = COVID-19 VACCINE (#1)] Future Scheduled 2023-03-30 Hepatitis C screening [facility] Test 12:12:33 (procedure) [code = 672008674] Future Scheduled 2023-03-30 Screening for [facility] Test 12:12:33 malignant neoplasm of cervix (procedure) [code = 600450344] Future Scheduled 2023-03-30 BREAST CANCER [facility] Test 12:12:33 SCREENING [code = BREAST CANCER SCREENING] Future Scheduled 2023-03-30 COLONOSCOPY SCREENING [facility] Test 12:12:33 [code = COLONOSCOPY SCREENING] Future Scheduled 2023-03-30 INFLUENZA VACCINE [facility] Test 12:12:33 [code = INFLUENZA VACCINE] Encounters Start End Encounter Admission Attending Care Care Encounter Source Date/Time Date/Time Type Type Clinicians Facility Department ID 2023-01-24 Outpatient [facility] [id number] [place] 11:33:44 [id number] Health 2023-01-21 Outpatient [facility] [id number] [place] 12:58:40 [id number] Health 2022-02-18 Outpatient [facility] [id number] [place] 10:44:50 [id number] Health 2022-02-09 Outpatient JOSIAS [facility] [id number] [place] 13:57:45 [id number] Health 2022-02-08 Outpatient JOSIAS [facility] [id number] [place] 13:04:07 [id number] [facility] 2021-11-05 Outpatient CORMIER, [facility] [id number] [place] 15:25:07 Health 2021-09-07 Outpatient CORMIER, AMAURY [facility] [id number] [place] 09:36:48 Health 2021-08-21 Outpatient CORMIER, [facility] Surgery [id number] SLE 23:27:03 2023-03-04 2023-03-04 Outpatient GC_TNC_Cher PRIV PRIV [id number] [facility] 00:00:00 00:00:00 ches_I [id number] Medica l 2023-02-27 2023-02-27 Outpatient FOG_Copelan AOSM AOSM [id number] Kacy 00:00:00 00:00:00 d_Mayelin [id number] [facility] 2023-02-24 2023-02-24 [facility] [id number] [place] 10:30:00 10:30:00 Health 2023-02-17 2023-02-17 [facility] [id number] [place] 16:00:00 16:00:00 Health 2023-02-11 2023-02-11 Outpatient FOG_Copelan AOSM AOSM [id number] Kacy 00:00:00 00:00:00 d_Mayelin [id number] Orth ope dic Sports Medicin e 2023-02-10 2023-02-10 Outpatient CORMIER, AMAURY [facility] [id number] [place] 07:00:00 07:00:00 Health 2023-01-24 2023-01-24 Office Cormier, Amaury [facility] 1.2.840.114 [id number] [place] 11:45:00 13:12:23 Visit SUGAR 350.1.13.58 [facility] 9.2.7.2.686 PLAZA 0 [id number] AND 3 WOMENS 2023-01-23 2023-01-23 Outpatient FOG_Copelan AOSM AOSM [id number] Kacy 00:00:00 00:00:00 d_Mayelin [id number] Orth [facility] Medic[facility] e 2023-01-14 2023-01-14 Outpatient FOG_Copelan AOSM AOSM [id number] Kacy 00:00:00 00:00:00 d_Mayelin [id number] Orth [facility] Medic[facility] e 2023-01-11 2023-01-11 Hospital [facility], 1.2.840.1 [id number] Methodi 06:04:00 08:35:00 Encounter Svetang 71341.1.[address] [place] 3.430.2.7 Hospit a .3.495000 l .8 2023-01-11 2023-01-11 Surgery [facility], 1.2.840.1 [id number] Methodi 07:30:00 07:55:[address] [place] 3.430.2.7 Hospit a .3.868584 l .8 2023-01-11 2023-01-11 Anesthesia BettyeMonty Lawton 1.2.8 40.1 [id number] Methodi 07:39:00 07:53:00 Event Ada Bermudez 29675.1.[address] 3.430.2.7 Hospit a .3.581506 l .8 2023-01-11 2023-01-11 Outpatient [facility], [facility] [id number] [place] 00:00:00 00:00:00 SVETANG [address] 2023-01-11 2023-01-11 Travel 1.2.840.1 1.2.333.993 [id number] Methodi 00:00:00 00:00:[address] 3.430.2.7 0.2.7.3.698 spita .3.689287 084.8 l .8 2023-01-06 2023-01-06 Pre-Admiss [facility], 1.2.840.1 [id number] Methodi 17:00:00 17:15:00 ion Svetang 95804.1.[address] Testing [place] 3.430.2.7 Hospit a .3.932879 l .8 2023-01-06 2023-01-06 Office [facility], 1.2.840.1 [id number] Methodi 15:30:00 16:08:22 Visit etan 68994.1.[address] [place] 3.430.2.7 Hospit a .3.850607 l .8 2023-01-06 2023-01-06 Outpatient [facility], [facility] [id number] [place] 00:00:00 00:00:00 SVETANG [address] 2023-01-06 2023-01-06 Outpatient [facility], [facility] [id number] [place] 00:00:00 00:00:[address] 2023-01-06 2023-01-06 Prep for Fredy, 1.2.840.1 [id number] Methodi 00:00:00 00:00:00 Surgery Ignacia Rice 27642.1.1 272 s t 3.430.2.7 Hospit a .3.873472 l .8 2023-01-06 2023-01-06 Travel 1.2.840.1 1.2.463.155 [id number] Methodi 00:00:00 00:00:[address] 3.430.2.7 0.2.7.3.698 spita .3.217381 084.8 l .8 2022-12-21 2022-12-21 [facility] [id number] [facility] 12:00:00 12:00:00 Marzena Rao [facility] 2022-12-20 2022-12-20 Outpatient FOG_Kozak_J AOSM AOSM [id number] Kacy 00:00:00 00:00:00 Abi [id number] Orth ope dic Sports Medicin e 2022-12-20 2022-12-20 Outpatient FOG_Kozak_J AOSM AOSM [id number] Kacy 00:00:00 00:00:00 Abi [id number] Orth ope dic Sports Medicin e 2022-12-13 2022-12-13 Outpatient FOG_Kozak_J AOSM AOSM [id number] Kacy 00:00:00 00:00:00 Abi [id number] Orth ope dic Sports Medicin e 2022-12-07 2022-12-07 Outpatient FOG_Kozak_J AOSM AOSM [id number] Kacy 00:00:00 00:00:00 Abi 475134 Orth [facility]pe [facility] Sports Medicin e 2022-12-07 2022-12-07 Trinh E AOSM [place] - Ortho [id number] Kacy 00:00:00 00:00:00 Floridalma Galloway MD: 520 [facility] [place] [address] , Ph. [phone] 2022-12-03 2022-12-03 Outpatient FOG_Kozak_J AOSM AOSM [id number] Kacy 00:00:00 00:00:00 Abi [id number] Orth ope dic Sports Medicin e 2022-11-30 2022-11-30 Outpatient FOG_Kozak_J AOSM AOSM [id number] Kacy 00:00:00 00:00:00 Abi [id number] Orth ope dic Sports Medicin e 2022-11-30 2022-11-30 Outpatient FOG_Kozak_J AOSM AOSM [id number] Kacy 00:00:00 00:00:00 Abi 407704 Orth ope dic Sports Medicin e 2022-02-01 2022-02-01 [facility] [id number] Memoria 10:45:49 14:30:00 [facility] 2022-02-01 2022-02-01 Outpatient [facility] [id number] Memoria 10:45:49 14:30:00 [facility] 2022-02-01 2022-02-01 Outpatient nullFlavo [facility] [id number] Memoria 05:45:49 09:30:00 patrice Kimball 2022-02-01 2022-02-01 Outpatient Amaury Cormier [id number] 05:45:49 09:30:00 8 2021-11-24 2021-11-24 Outpatient CORMIER, [facility] [id number] [place] 00:00:00 00:00:[address] 2021-11-05 2021-11-[address] [facility] 1.2.840.114 [id number] [place] 14:30:00 15:35:56 Visit SUGAR 350.1.13.58 [facility] 9.2.7.2.686 PLAZA 0 [id number] AND 3 WOMENS 2021-07-24 2021-07-24 Outpatient GC_TNC_Cher PRIV PRIV [id number] [facility] 00:00:00 00:00:00 ches_I [id number] Medica l 2021-06-20 2021-06-20 Outpatient Patrice BALTAZAR [facility] [id number] [facility] 17:00:00 17:00:[address] [facility] 2020-08-13 2020-08-14 Inpatient CORMIER, [facility] [id number] [place] 00:00:00 00:00:[address] 2020-08-08 2020-08-08 [facility] [id number] [place] 00:00:00 00:00:00 630 Method i 2020-05-29 2020-05-29 Outpatient CORMIER, [facility] [id number] [place] 00:00:00 00:00:[address] 2020-05-15 2020-05-15 Outpatient CORMIER, [facility] [id number] [place] 00:00:00 00:00:[address] 2020-05-07 2020-05-07 Outpatient GONZALEZ, [facility] [id number] [place] 00:00:00 00:00:00 SVETANG [address] 2020-05-05 2020-05-05 Outpatient GONZALEZ, [facility] [id number] [place] 00:00:00 00:00:00 SVETANG [address] 2020-05-03 2020-05-03 Outpatient GONZALEZ, [facility] [id number] [place] 00:00:00 00:00:00 SVETANG [address] 2020-05-01 2020-05-01 Outpatient GONZALEZ, [facility] [id number] [place] 00:00:00 00:00:00 SVETAN 646 Method i 2020-04-30 2020-04-30 Outpatient CARLOS [facility] [id number] [place] 00:00:00 00:00:00 ARY 645 Method i 2020-04-17 2020-04-17 Emergency X KOKO, [facility] ERT [id number] [facility] 11:21:30 13:49:00 CASEYRishabh [facility] 2020-01-31 2020-02-06 Office Pob1, Acute [facility] 1.2.840.114 [id number] 14:19:48 09:07:25 Visit Care Clinic Health 350.1.13.10 [place] 4.2.7.2.686 Professio [phone] [place] [address] Office [facility] 2020-02-06 2020-02-06 [facility] 1.2.582.525 [id number] 00:00:00 00:00:00 Jennifer Godwin Health 350.1.13.10 [place] 4.2.7.2.686 Professio [phone] [address] 2020-02-05 2020-02-05 [facility] 1.2.439.136 [id number] 00:00:00 00:00:00 Jennifer A Health 350.1.13.10 [place] 4.2.7.2.686 Professio [phone] [address] 2020-01-31 2020-01-31 [facility] [id number] Univers 14:20:00 14:20:00 JENNIFER [facility] 2020-01-31 2020-01-31 Orders Doctor THOMAS 1.2.840.114 [id number] 00:00:00 00:00:00 Only Unassigned, IT[place] 350.1.13.10 [place] [facility] 4.2.7.2.686 [id number] 009 2020-01-25 2020-01-25 Outpatient ROGELIO SatnamTATI [id number] [facility] 12:00:00 12:00:00 Marzena Perrin [facility] Results Test Description Test Time Test Comments Results Result Comments Source Surgical pathology request 2023-01-14 16:57:32 Test Item Value Reference Range Interpretation Comme nts Case number (test code = 0411274) [id number] Surgical pathology report (test code = See link below for PDF Lab R eport 2251) Result status (test code = 7855209) This is Supplemental Report for [id number] [facility]Ip[facility]-2 (COVID-19) RNA [Presence] in Respiratory specimen by TOMY with probe [id number] 01:11:36 Test Item Value Reference Range Interpretation Comments SARS-CoV-2 (COVID-19) RNA Not detected [Presence] in Respiratory specimen by TOMY with probe detection (test code = 25133-2) Whether patient is employed in a Unknown healthcare setting (test code = 00919-7) Whether the patient has symptoms Unknown related to condition of interest (test code = 69358-2) Whether the patient was Unknown hospitalized for condition of interest (test code = 14343-4) Whether the patient was admitted Unknown to intensive care unit (ICU) for condition of interest (test code = 83046-6) Whether patient resides in a Unknown congregate care setting (test code = 91710-0) status (test code = Unknown 64013-9) Date and time of symptom onset Unknown (test code = 44606-9) [facility]-CoV-2 (COVID-19) RNA [Presence] in Respiratory specimen by TOMY with probe [id number] 18:01:44 Test Item Value Reference Range Interpretation Comments SARS-CoV-2 (COVID-19) RNA Not detected Not-Detected [Presence] in Respiratory specimen by TOMY with probe detection (test code = 14438-3) [facility]
--- NOTE | 2023-03-30 12:48 | RAD REPORT ---
EXAM DESCRIPTION: CT - Stone Protocol - 03/30/2023 12:30 pm CLINICAL HISTORY: FLANK PAIN COMPARISON: Stone Protocol dated 04/02/2020; Stone Protocol dated 07/19/2018 TECHNIQUE: Thin cut axial CT imaging of the abdomen and pelvis was performed without IV contrast. Mu ltiplanar reformats were generated and reviewed. All CT scans are performed using dose optimization technique as appropriate and may include automated exposure control or mA/KV adjustment according to patient size. FINDINGS: No suspicious findings in the lung bases. The liver, spleen, and pancreas show no suspicious findings. Gallbladder was surgically removed. No e vidence of intra or extrahepatic biliary ductal dilation. Symmetric renal contour, without suspicious parenchymal findings within limits of noncontrast techniq ue. No evidence of radiopaque calculi or hydroureteronephrosis. Sequelae of near total colectomy with enterocolic anastomosis in the pelvis. No dilated bowel loops o r bowel wall thickening. No free air, free fluid or inflammatory stranding. No hernia, mass or bulky lymphadenopathy. The urinary bladder is without significant finding. No suspicious bony findings. IMPRESSION: No acute intra-abdominal process. Postsurgical changes as above.
[2023-03-30] MEDS ORDERED: ONDANSETRON 4 MG/2 ML VIAL ONE ×2 (12:50→14:02)
[2023-03-30] MEDS ORDERED: NA CHLORIDE 0.9% 1,000 ML ONE (12:50)
[2023-03-30] MEDS ORDERED: MORPHINE 4 MG/ML SYR ONE (12:50)
[2023-03-30] MEDS ORDERED: CEFTRIAXONE 1000 MG/VIAL ONE (12:50)
[2023-03-30] MEDS ORDERED: KETOROLAC 30 MG/ML INJ ONE (12:50)
[2023-03-30 13:10] LABS: Absolute Lymphocytes (CBC) 0.8 K/uL (0.7-4.9); Lymphocytes % 12.3 % (15.3-44.8); MCV 84.4 fL (80-100); MPV 8.2 fL (7.6-11.3); RBC Red Blood Cell Count 4.14 M/uL (3.86-4.86)
[2023-03-30 13:21] LABS: Specific Gravity 1.023 (1.005-1.030)
[2023-03-30 13:25] LABS: Specific Gravity 1.023 (1.005-1.030); Urine Bacteria <20 /HPF (<20); Urine Bilirubin NEGATIVE (Negative); Urine Blood Negative (Negative); Urine Clarity Clear (Clear); Urine Color Light-Yellow (Yellow); Urine Glucose NEGATIVE (Negative); Urine Mucus 2+ /HPF (None Seen); Urine Protein TRACE (Negative); Urine RBC <5 /HPF (None Seen); Urine Urobilinogen Normal (Normal)
[2023-03-30 13:27] LABS: Albumin 3.9 g/dL (3.4-5.0); Bilirubin Total 0.3 mg/dL (0.2-1.0); Potassium 3.6 mEq/L (3.5-5.1); Protein, Total 8.2 g/dL (6.4-8.2)
--- NOTE | 2023-03-30 15:32 | ER ---
Nurse's Notes [facility] Name: Jose Armenta Age: 47 yrs Sex: Female : 1975 Arrival Date: 03/30/2023 Time: 11:41 Bed 11 Private MD: Diagnosis: Abdominal tenderness Presentation: 03/30 12:06 Chief complaint: Patient states: Vomiting since yesterday, co left flank pain. nj1 Nauseous, chills. States it feels just like when she had issues with a kidney stone about 2-3 years ago. Unable to keep anything down. Denies diarrhea/fever. Coronavirus screen: Vaccine status: Patient reports being unvaccinated. Ebola Screen: Patient reports travel to Ebola-affected area in the 21 days before illness onset. Patient reports having traveled to: [place]. Initial Sepsis Screen: Does the patient meet any 2 criteria? HR > 90 bpm. No. Patient's initial sepsis screen is negative. Does the patient have a suspected source of infection? No. Patient's initial sepsis screen is negative. Risk Assessment: Do you want to hurt yourself or someone else? Patient reports no desire to harm self or others. Onset of symptoms was March 29, 2023. 12:06 Method Of Arrival: Ambulatory [facility] 12:06 Acuity: SAFIA 3 nj1 Historical: - Allergies: 12:09 No Known Allergies; nj1 - PMHx: 12:09 hernandez parkinson white syndrome; Migraines; Kidney stones; acid reflux; nj1 - PSHx: 12:09 Total colectomy; Hysterectomy; Appendectomy; nj1 - Immunization history:: Client reports having NOT received the Covid vaccine. - Social history:: Smoking status: Patient denies any tobacco usage or history of. Screenin:27 [facility] ED Fall Risk Assessment (Adult) History of falling in the last 3 months, mb9 including since admission No falls in past 3 months (0 pts) Confusion or Disorientation No (0 pts) Intoxicated or Sedated No (0 pts) Impaired Gait No (0 pts) Mobility Assist Device Used No (0 pt) Altered Elimination No (0 pt) Score/Fall Risk Level 0 - 2 = Low Risk Oriented to surroundings, Maintained a safe environment, Educated pt \T\ family on fall prevention, incl call for assistance when getting out of bed. Abuse screen: Denies threats or abuse. Nutritional screening: No deficits noted. Tuberculosis screening: No symptoms or risk factors identified. Assessment: 13:12 General: Appears uncomfortable, Behavior is calm, cooperative, appropriate for age. mb9 Pain: Complains of pain in back Pain radiates to left flank Pain currently is 8 out of 10 on a pain scale. Quality of pain is described as aching, throbbing, Pain began 1 day ago. Is continuous. Neuro: Donis Agitation-Sedation Scale (RASS): 0 - Alert and Calm Level of Consciousness is awake, alert, obeys commands, Oriented to person, place, time, situation, Appropriate for age. Cardiovascular: Patient's skin is warm and dry. Respiratory: Airway is patent Respiratory effort is even, unlabored, Respiratory pattern is regular, symmetrical. GI: Abdomen is flat, non-distended, Bowel sounds present X 4 quads. Abd is soft and non tender X 4 quads. Reports nausea, vomiting. : Urine is clear. Derm: Skin is. Musculoskeletal: Range of motion: intact in all extremities. 15:23 Reassessment: Patient and/or family updated on plan of care and expected duration. Pain mb9 level reassessed. Patient is alert, oriented x 3, equal unlabored respirations, skin warm/dry/pink. Patient states feeling better. Patient states symptoms have improved. Vital Signs: 12:06 BP 131 / 86; Pulse 102; Resp 18; Temp 97.7(TE); Pulse Ox 100% ; Weight 65.77 kg; Height nj1 5 ft. 2 in. ; Pain 6/10; 13:12 BP 116 / 76; Pulse 98; Resp 18; Pulse Ox 100% on R/A; Pain 8/10; mb9 15:22 BP 118 / 64; Pulse 84; Resp 17; Pulse Ox 98% on R/A; mb9 12:06 Body Mass Index 26.52 (65.77 kg, 157.48 cm) nj1 12:06 Pain Scale: Adult nj1 13:12 Pain Scale: Adult mb9 ED Course: 11:50 Patient arrived in ED. am2 12:08 Triage completed. nj1 12:10 Arm band placed on left wrist. nj1 12:11 Jeremiah Marsh MD is Attending Physician. [facility] 12:26 Chanda Jolley RN is Primary Nurse. mb9 12:27 Placed in gown. Bed in low position. Call light in reach. Side rails up X 1. Client mb9 placed on continuous cardiac and pulse oximetry monitoring. NIBP monitoring applied. 12:30 CT Stone Protocol In Process Unspecified. EDMS 13:03 Inserted saline lock: 22 gauge in right antecubital area, using aseptic technique. ks8 Blood collected. 13:11 Test, Urine Sent. mb9 13:11 Urinalysis w/ reflexes Sent. mb9 15:23 No provider procedures requiring assistance completed. EKG done, by ED staff, reviewed mb9 by Jeremiah Marsh MD. 15:30 Carlos Alberto Bernal MD is Referral Physician. cesar 15:48 IV discontinued, intact, bleeding controlled, No redness/swelling at site. Pressure mb9 dressing applied. Administered Medications: 13:00 Drug: NS 0.9% IV 1000 ml Route: IV; Rate: 1 bolus; Site: right antecubital; mb9 15:03 Follow up: Response: No adverse reaction; IV Status: Completed infusion mb9 13:00 Drug: Ondansetron IVP 4 mg Route: IVP; Site: right antecubital; mb9 15:03 Follow up: Response: No adverse reaction mb9 13:02 Drug: morphine IVP or IV 4 mg Route: IVP; Infused Over: 4 mins; Site: right antecubital;mb9 15:03 Follow up: Response: No adverse reaction mb9 13:08 Drug: Ketorolac IVP 30 mg Route: IVP; Site: right antecubital; mb9 15:03 Follow up: Response: No adverse reaction mb9 13:59 Drug: Ondansetron IVP 4 mg Route: IVP; Site: right antecubital; mb9 15:02 Follow up: Response: No adverse reaction mb9 14:57 Not Given (Duplicate Order): Rocephin IV 1 grams IV at per protocol once; Given slow IV cesar push per pharmacy instructions Medication: 12:27 VIS not applicable for this client. mb9 Outcome: 15:31 Discharge ordered by . cesar 15:48 Discharged to home ambulatory. mb9 15:48 Condition: stable 15:48 Discharge instructions given to patient, Instructed on discharge instructions, follow up and referral plans. Demonstrated understanding of instructions, follow-up care, medications, Prescriptions given X 3. 15:48 Patient left the ED. mb9 Signatures: Dispatcher [employer] Jeremiah Betancourt MD MD cha Moreno, Amanda am2 Breneman, Mary Beth RN RN mb9 Britt Cervantes ks8 Angela Clifton RN RN nj1
--- NOTE | 2023-03-30 15:32 | EDPHYS ---
Physician Documentation [facility] Name: Jose Armenta Age: 47 yrs Sex: Female : 1975 Arrival Date: 03/30/2023 Time: 11:41 Bed 11 Private MD: ERNESTO Physician Jeremiah Marsh HPI: 03/30 15:01 This 47 yrs old Female presents to ER via Ambulatory with complaints of cesar Abdominal Pain, Nausea. 15:01 The patient presents to the emergency department with nausea, that is mild. Onset: The cesar symptoms/episode began/occurred 1 day(s) ago. Possible causes: unknown. The symptoms are aggravated by movement, The symptoms are alleviated by nothing. Severity of symptoms: At their worst the symptoms were mild in the emergency department the symptoms have resolved. The patient has not experienced similar symptoms in the past. Historical: - Allergies: 12:09 No Known Allergies; nj1 - PMHx: 12:09 hernandez parkinson white syndrome; Migraines; Kidney stones; acid reflux; nj1 - PSHx: 12:09 Total colectomy; Hysterectomy; Appendectomy; nj1 - Immunization history:: Client reports having NOT received the Covid vaccine. - Social history:: Smoking status: Patient denies any tobacco usage or history of. ROS: 15:03 Constitutional: Negative for fever, chills, and weight loss, Eyes: Negative for injury, cesar pain, redness, and discharge, ENT: Negative for injury, pain, and discharge, Neck: Negative for injury, pain, and swelling, Cardiovascular: Negative for chest pain, palpitations, and edema, Respiratory: Negative for shortness of breath, cough, wheezing, and pleuritic chest pain, Back: Negative for injury and pain, : Negative for injury, bleeding, discharge, and swelling, MS/Extremity: Negative for injury and deformity, Skin: Negative for injury, rash, and discoloration, Neuro: Negative for headache, weakness, numbness, tingling, and seizure, Psych: Negative for depression, anxiety, suicide ideation, homicidal ideation, and hallucinations, Allergy/Immunology: Negative for hives, rash, and allergies, Endocrine: Negative for neck swelling, polydipsia, polyuria, polyphagia, and marked weight changes, Hematologic/Lymphatic: Negative for swollen nodes, abnormal bleeding, and unusual bruising. 15:03 Abdomen/GI: Positive for abdominal pain, of the left upper quadrant. Exam: 15:03 Constitutional: This is a well developed, well nourished patient who is awake, alert, cesar and in no acute distress. Head/Face: Normocephalic, atraumatic. Eyes: Pupils equal round and reactive to light, extra-ocular motions intact. Lids and lashes normal. Conjunctiva and sclera are non-icteric and not injected. Cornea within normal limits. Periorbital areas with no swelling, redness, or edema. ENT: Nares patent. No nasal discharge, no septal abnormalities noted. Tympanic membranes are normal and external auditory canals are clear. Oropharynx with no redness, swelling, or masses, exudates, or evidence of obstruction, uvula midline. Mucous membranes moist. Neck: Trachea midline, no thyromegaly or masses palpated, and no cervical lymphadenopathy. Supple, full range of motion without nuchal rigidity, or vertebral point tenderness. No Meningismus. Chest/axilla: Normal chest wall appearance and motion. Nontender with no deformity. No lesions are appreciated. Cardiovascular: Regular rate and rhythm with a normal S1 and S2. No gallops, murmurs, or rubs. Normal PMI, no JVD. No pulse deficits. Respiratory: Lungs have equal breath sounds bilaterally, clear to auscultation and percussion. No rales, rhonchi or wheezes noted. No increased work of breathing, no retractions or nasal flaring. Abdomen/GI: Soft, non-tender, with normal bowel sounds. No distension or tympany. No guarding or rebound. No evidence of tenderness throughout. Back: No spinal tenderness. No costovertebral tenderness. Full range of motion. Pelvic Exam: Normal external genitalia. Speculum exam with closed cervical os, no discharge or bleeding noted. Bimanual exam with normal adnexa, no adnexal or cervical motion tenderness. Normal uterus. Skin: Warm, dry with normal turgor. Normal color with no rashes, no lesions, and no evidence of cellulitis. MS/ Extremity: Pulses equal, no cyanosis. Neurovascular intact. Full, normal range of motion. Neuro: Awake and alert, GCS 15, oriented to person, place, time, and situation. Cranial nerves II-XII grossly intact. Motor strength 5/5 in all extremities. Sensory grossly intact. Cerebellar exam normal. Normal gait. Psych: Awake, alert, with orientation to person, place and time. Behavior, mood, and affect are within normal limits. 15:03 ECG was reviewed by the Attending Physician. 15:24 Musculoskeletal/extremity: DVT Exam: No signs of deep vein thrombosis. no pain, no cesar swelling, no tenderness, negative Homans' sign noted on exam, no appreciated bluish discoloration, no erythema, no increased warmth. Vital Signs: 12:06 BP 131 / 86; Pulse 102; Resp 18; Temp 97.7(TE); Pulse Ox 100% ; Weight 65.77 kg; Height nj1 5 ft. 2 in. ; Pain 6/10; 13:12 BP 116 / 76; Pulse 98; Resp 18; Pulse Ox 100% on R/A; Pain 8/10; mb9 15:22 BP 118 / 64; Pulse 84; Resp 17; Pulse Ox 98% on R/A; mb9 12:06 Body Mass Index 26.52 (65.77 kg, 157.48 cm) nj1 12:06 Pain Scale: Adult nj1 13:12 Pain Scale: Adult mb9 MDM: 12:11 Patient medically screened. cesar 15:25 Differential diagnosis: Nonspecific abd pain, gastritis, pancreatitis, viral cesar gastroenteritis, gastroenteritis. Data reviewed: vital signs, nurses notes, lab test result(s), EKG, radiologic studies, CT scan. Consideration of Admission/Observation Escalation of care including admission/observation considered. I considered the following discharge prescriptions or medication management in the emergency department Medications were administered in the Emergency Department. See MAR. Independent interpretation of the following test(s) in the Emergency Department EKG: See my EKG interpretation above. Test considered but Not performed: Ultrasound no abd usg. Care significantly affected by the following chronic conditions: kidney stones, migraines, wpw, gerd. 03/30 12:13 Order name: CBC with Diff; Complete Time: 14:41 [facility] 03/30 12:13 Order name: CMP; Complete Time: 14:41 cesar 03/30 12:13 Order name: Lipase; Complete Time: 14:41 [facility] 03/30 12:13 Order name: Test, Urine; Complete Time: 14:41 [facility] 03/30 12:13 Order name: Urinalysis w/ reflexes; Complete Time: 14:41 [facility] 03/30 12:13 Order name: CT Stone Protocol; Complete Time: 14:41 [facility] 03/30 15:00 Order name: EKG; Complete Time: 15:01 [facility] 03/30 12:13 Order name: IV Saline Lock; Complete Time: 13:03 [facility] 03/30 12:13 Order name: Labs collected and sent; Complete Time: 13:03 [facility] 03/30 15:00 Order name: EKG - Nurse/Tech; Complete Time: 15:22 [facility] EC:03 Rate is 67 beats/min. Rhythm is regular. QRS [place] is Normal. PA interval is normal. QRS cesar interval is normal. QT interval is normal. No Q waves. No ST changes noted. Clinical impression: Abnormal EKG without significant change and WPW. Interpreted by me. Reviewed by me. Administered Medications: 13:00 Drug: NS 0.9% IV 1000 ml Route: IV; Rate: 1 bolus; Site: right antecubital; mb9 15:03 Follow up: Response: No adverse reaction; IV Status: Completed infusion mb9 13:00 Drug: Ondansetron IVP 4 mg Route: IVP; Site: right antecubital; mb9 15:03 Follow up: Response: No adverse reaction mb9 13:02 Drug: morphine IVP or IV 4 mg Route: IVP; Infused Over: 4 mins; Site: right antecubital;mb9 15:03 Follow up: Response: No adverse reaction mb9 13:08 Drug: Ketorolac IVP 30 mg Route: IVP; Site: right antecubital; mb9 15:03 Follow up: Response: No adverse reaction mb9 13:59 Drug: Ondansetron IVP 4 mg Route: IVP; Site: right antecubital; mb9 15:02 Follow up: Response: No adverse reaction mb9 14:57 Not Given (Duplicate Order): Rocephin IV 1 grams IV at per protocol once; Given slow IV cesar push per pharmacy instructions Disposition Summary: 03/30/23 15:31 Discharge Ordered Location: Home cesar Problem: new cesar Symptoms: have improved cesar Condition: Stable cesar Diagnosis - Abdominal tenderness cesar Followup: cesar - With: Private Physician - When: 2 - 3 days - Reason: Recheck today's complaints, Continuance of care, Re-evaluation by your physician Followup: cesar - With: Carlos Alberto Bernal MD - When: 2 - 3 days - Reason: Recheck today's complaints, Continuance of care, Re-evaluation by your physician Discharge Instructions: - Discharge Summary Sheet cesar - Abdominal Pain, Adult cesar - Nausea, Adult cesar - Abdominal Pain, Adult, [id number] cesar - Nausea, Adult, [id number] [facility] Forms: - Medication Reconciliation Form [facility] - Thank You Letter cesar - Antibiotic Education [facility] - Prescription Opioid Use [facility] Prescriptions: - Valtrex 1 gram Oral tablet - take 1 tablet by ORAL route every 8 hours for 7 days; 21 tablet; Refills: 0, [facility] Product Selection Permitted - Protonix 40 mg Oral Tablet - take 1 tablet by ORAL route once daily; 30 tablet; Refills: 0, Product [facility] Selection Permitted - Zofran 4 mg Oral Tablet - take 1 tablet by ORAL route every 12 hours As needed; 20 tablet; Refills: 0, [facility] Product Selection Permitted - dicyclomine 20 mg Oral Tablet - take 1 tablet by ORAL route 4 times per day; 28 tablet; Refills: 0, Product [facility] Selection Permitted Signatures: Dispatcher [employer] Jeremiah Betancourt MD MD cha Breneman, Chanda Ortega, RN RN mb9 Angela Clifton RN RN nj1
[2023-03-30 16:14] VITALS: TEMP 97.7
[2023-03-30 16:18] VITALS: BP 118/64; O2SAT 98
--- NOTE | 2023-03-31 11:23 | EKG ---
Test Date: 2023-03-30 Test Time: 15:18:19 Nitro Man: MB MEASUREMENT RESULTS: Intervals: Rate: 67 VA: 170 QRSD: 88 QT: 408 QTc: 431 [place]: P: 73 VA: 170 QRS: 89 T: 62 INTERPRETIVE STATEMENTS: Normal sinus rhythm Normal ECG Compared to ECG 09/03/2019 11:18:00 No significant changes Electronically Signed On 03-31-23 11:20:14 CDT by Carmine Frazier
== END 2023-03-30 15:48 | disposition home or self-care (01) ==
LOC: ER 11:41
DX: R10.812 Left upper quadrant abdominal tenderness (principal)
CPT/HCPCS: 36415; 74176; 76377; 80053; 81001; 81025; 83690; 85025; 93005; J0696; J2405; J7030